=== PATIENT | female | born 1950 | race Caucasian/White ===

== ENCOUNTER → 2016-11-09 | Outpatient (CLI) | payer MEDICARE, BC ==
[2016-11-09 08:39] LABS: Blood Urea Nitrogen 19 mg/dL (7-17); Non-African American GFR(MDRD) 57 (>60 ml/min/1.73 sqM)
--- NOTE | 2016-11-09 11:17 | CT ---
EXAMINATION TYPE: CT chest w con DATE OF EXAM: 11/09/2016 9:07 AM COMPARISON: Chest CT 19 November 2015 HISTORY: Follow up to prior abn CT CT DLP: 571 mGycm Automated exposure control for dose reduction was used. CONTRAST: CT scan of the chest is performed with IV Contrast, patient injected with 80 ml mL of Visipaque 320. FINDINGS: LUNGS: Calcified nodule in the right lower lobe at the level of diaphragm again noted, an additional nodule seen on axial image 47 at the level of the right hemidiaphragm also subcentimeter in size. Sub pleural nodularity also present right lower lobe medially. Subcentimeter nodule axial image 40 in the left lower lobe is noncalcified. MEDIASTINUM: There are no greater than 1 cm hilar or mediastinal lymph nodes. No pericardial effusi on is seen. AORTA: Stable OTHER: Punctate calcification seen within a low dense focus towards the dome of the liver on the rig ht lower is subcentimeter in size. Possible gallstones. Postop change noted at the gastroesophageal j unction. IMPRESSION: Old granulomatous disease is favored. Essentially stable exam.
== END | disposition home or self-care (01) ==
LOC: RADCTMAIN 08:09
PROVIDERS: ATTEND Internal Medicine Critical Care Medicine
DX: R91.8 Other nonspecific abnormal finding of lung field (principal)
CPT/HCPCS: 82565; 84520; 71260; 36415; Q9967

== ENCOUNTER 2017-05-15 00:45 | Inpatient (IN) | payer MEDICARE, BC ==
--- NOTE | 2017-05-15 01:22 | ED ---
General Adult HPI - General Chief complaint: Psychiatric Symptoms Stated complaint: Mental Health Time Seen by Provider: 05/15/17 00:55 Source: patient, EMS, RN notes reviewed Mode of arrival: EMS Limitations: no limitations - History of Present Illness Initial comments: 66-year-old female presents emergency Department chief complaint of manic episode. history of bipolar. Patient is talking very manic in the room unable to get a history from the patient. She denies any pain at this time. - Related Data Home Medications Medication Instructions Recorded Confirmed Ascorbic Acid [Vitamin C] 500 mg PO DAILY 12/06/15 01/28/16 Calcium Carbonate/Vitamin D3 325 mg PO DAILY 12/06/15 01/28/16 [Calcium 600-Vit D3 400 Tablet] Ferrous Sulfate, Dried [Iron] 65 mg PO DAILY 12/06/15 01/28/16 Niacinamide [Niacin] 500 mg PO DAILY 12/06/15 01/28/16 Cholecalciferol [Vitamin D3] 1,000 unit PO BID 12/07/15 01/28/16 Kelp 150 mcg PO DAILY 12/07/15 01/28/16 L.acidoph,Paracasei, B.lactis 1 cap PO DAILY PRN 12/07/15 01/28/16 [Probiotic] Magnesium Oxide [Mag-Ox] 500 mg PO Q48H 12/07/15 01/28/16 Ubidecarenone [Co Q-10] 10 mg PO DAILY 12/07/15 01/28/16 Vitamin E 400 unit PO DAILY 12/07/15 01/28/16 Previous Rx's Medication Instructions Recorded Levothyroxine Sodium [Synthroid] 88 mcg PO DAILY #14 tablet 01/01/16 Multivitamins, Thera [Multivitamin 1 tab PO DAILY #30 tab 01/01/16 (formulary)] OLANZapine [ZyPREXA] 20 mg PO HS #14 tablet 01/01/16 lamoTRIgine [LaMICtal] 100 mg PO TID #21 tab 01/01/16 Allergies Allergy/AdvReac Type Severity Reaction Status Date / Time alendronate sodium Allergy Rash/Hives Verified 01/28/16 23:23 [From Fosamax] amoxicillin Allergy Rash/Hives Verified 01/28/16 23:23 guaifenesin [From Robitussin] Allergy Rash/Hives Verified 01/28/16 23:23 ibandronate sodium Allergy Rash/Hives Verified 01/28/16 23:23 [From Boniva] Review of Systems ROS Statement: Those systems with pertinent positive or pertinent negative responses have been documented in the HPI. ROS Other: All systems not noted in ROS Statement are negative. Past Medical History Past Medical History: Asthma, Thyroid Disorder, Vascular Disorder Additional Past Medical History / Comment(s): Other HX: R lung nodules-pt states noncancerous , slight kidney problems-lab tests alittle abnormal pt states due to previously having been on lithium, stable descending aortic aneurysm, cholelithiasis, hypothyroidism, varicosities R leg, constipation. BOWEL OBSTUCTION History of Any Multi-Drug Resistant Organisms: None Reported Past Surgical History: Adenoidectomy, Appendectomy, Bariatric Surgery, Ear Surgery, Tonsillectomy Additional Past Surgical History / Comment(s): 10-04-15 ADMITTED WITH CLINICAL IMPRESSION OF LT UPPER QUAD PAIN, INFECTION D/T GASTRIC BAND PROCEDURE. Lap band 2003 with a port replacement later, L ear cyst removal, colonoscopy-normal ,EXP LAP REDUCTION OF VENTRAL HERNIA,DECOMPRESSION OF BOWEL,DIVISION OF GASTRIC BAND CATHETER FREEING AREAD OF BOWEL THAT WAS STRANGULATED. Past Anesthesia/Blood Transfusion Reactions: No Reported Reaction Additional Past Anesthesia/Blood Transfusion Reaction / Comment(s): Pt has never recieved blood. Past Psychological History: Bipolar Smoking Status: Never smoker Past Alcohol Use History: Occasional Past Drug Use History: None Reported - Past Family History Father Additional Family Medical History / Comment(s): Father of ruptured aortic aneurysm at age 76yrs. Mother Additional Family Medical History / Comment(s): Mother had an abdominal aneurysm. She in her sleep at age 78yrs. General Exam Limitations: no limitations General appearance: alert Eye exam: Present: normal appearance, PERRL, EOMI. Absent: scleral icterus, conjunctival injection, periorbital swelling ENT exam: Present: normal exam, mucous membranes moist Neck exam: Present: normal inspection. Absent: tenderness, meningismus, lymphadenopathy Respiratory exam: Present: normal lung sounds bilaterally. Absent: respiratory distress, wheezes, rales, rhonchi, stridor Cardiovascular Exam: Present: regular rate, normal rhythm, normal heart sounds. Absent: systolic murmur, diastolic murmur, rubs, gallop, clicks Psychiatric exam: Present: manic Skin exam: Present: warm, dry, intact Course Vital Signs 05/15/17 00:49 Temperature 97.2 F L Pulse Rate 84 Respiratory 16 Rate Blood Pressure 152/84 O2 Sat by Pulse 99 Oximetry Medical Decision Making - Medical Decision Making 66-year-old female presents emergency Department what appears to be in a manic state. She does have history of bipolar disorder. This time it does not appear to be any acute medical emergencies. This time the patient is cleared to be evaluated by psychiatry. At this time patient was evaluated patient will be admitted for psychiatric care. - Lab Data Result diagrams: 05/15/17 01:51 05/15/17 01:51 Lab Results 05/15/17 05/15/17 05/15/17 Range/Units 01:51 01:51 02:30 WBC 7.6 (3.8-10.6) k/uL RBC 4.46 (3.80-5.40) m/uL Hgb 12.8 (11.4-16.0) gm/dL Hct 39.3 (34.0-46.0) % MCV 88.0 (80.0-100.0) fL MCH 28.7 (25.0-35.0) pg MCHC 32.6 (31.0-37.0) g/dL RDW 13.5 (11.5-15.5) % Plt Count 279 (150-450) k/uL Neutrophils % 58 % Lymphocytes % 27 % Monocytes % 8 % Eosinophils % 3 % Basophils % 1 % Neutrophils # 4.4 (1.3-7.7) k/uL Lymphocytes # 2.1 (1.0-4.8) k/uL Monocytes # 0.6 (0-1.0) k/uL Eosinophils # 0.2 (0-0.7) k/uL Basophils # 0.1 (0-0.2) k/uL Sodium 139 (137-145) mmol/L Potassium 4.0 (3.5-5.1) mmol/L Chloride 104 (98-107) mmol/L Carbon Dioxide 22 (22-30) mmol/L Anion Gap 13 mmol/L BUN 29 H (7-17) mg/dL Creatinine 1.00 (0.52-1.04) mg/dL Est GFR (MDRD) Af Amer >60 (>60 ml/min/1.73 sqM) Est GFR (MDRD) Non-Af 55 (>60 ml/min/1.73 sqM) Glucose 102 H (74-99) mg/dL Calcium 10.0 (8.4-10.2) mg/dL Total Bilirubin 0.7 (0.2-1.3) mg/dL AST 31 (14-36) U/L ALT 36 (9-52) U/L Alkaline Phosphatase 83 (38-126) U/L Total Protein 7.1 (6.3-8.2) g/dL Albumin 4.5 (3.5-5.0) g/dL Urine Color Colorless Urine Appearance Clear (Clear) Urine pH 5.0 (5.0-8.0) Ur Specific Roll 1.002 (1.001-1.035) Urine Protein Negative (Negative) Urine Glucose (UA) Negative (Negative) Urine Ketones Negative (Negative) Urine Blood Negative (Negative) Urine Nitrite Negative (Negative) Urine Bilirubin Negative (Negative) Urine Urobilinogen <2.0 (<2.0) mg/dL Ur Leukocyte Esterase Negative (Negative) Serum Alcohol <10 mg/dL Disposition Clinical Impression: Asmita (monopolar) single episode or unspecified Disposition: TRANSFER TO PSYCH HOSP/UNIT Condition: Stable Referrals: Genie Mccann, BEN [REFERRING] - 1-2 days Time of Disposition: 03:08
[2017-05-15 02:03] LABS: Basophils # (A) 0.1 k/uL (0-0.2); Basophils % (A) 1 %; CH 29.2; CHCM 33.3; Eosinophils # (A) 0.2 k/uL (0-0.7); Eosinophils % (A) 3 %; HCT 39.3 % (34.0-46.0); HDW 2.35; HGB 12.8 gm/dL (11.4-16.0); Luc # (Auto) 0.23; Luc % (Auto) 3; Lymphocytes # (A) 2.1 k/uL (1.0-4.8); Lymphocytes % (A) 27 %; MCH 28.7 pg (25.0-35.0); MCHC 32.6 g/dL (31.0-37.0); Mean Platelet Volume 6.6; Monocytes # (A) 0.6 k/uL (0-1.0); Monocytes % (A) 8 %; Neutrophils # (A) 4.4 k/uL (1.3-7.7); Neutrophils % (A) 58 %; RBC 4.46 m/uL (3.80-5.40); RDW 13.5 % (11.5-15.5); WBC 7.6 k/uL (3.8-10.6); WBC (Perox) 7.66
[2017-05-15 02:11] LABS: ALT 36 U/L (9-52); AST 31 U/L (14-36); Alcohol <10 mg/dL; Alkaline Phosphatase 83 U/L (38-126); Anion Gap 13 mmol/L; Blood Urea Nitrogen 29 mg/dL (7-17); Carbon Dioxide 22 mmol/L (22-30); Chloride 104 mmol/L (98-107); Glucose 102 mg/dL (74-99); Non-African American GFR(MDRD) 55 (>60 ml/min/1.73 sqM); Sodium 139 mmol/L (137-145); Total Bilirubin 0.7 mg/dL (0.2-1.3); Total Protein 7.1 g/dL (6.3-8.2)
[2017-05-15 02:47] LABS: Appearance,Urine Clear (Clear); Bilirubin,Urine Negative (Negative); Glucose,Urine (UA) Negative (Negative); Ketones,Urine Negative (Negative); Leukocyte Esterase,Urine Negative (Negative); Nitrite,Urine Negative (Negative); Protein,Urine Negative (Negative); Specific Gravity,Urine 1.002 (1.001-1.035); UA Billing (MACRO vs. MICRO) CHEM; Urobilinogen,Urine <2.0 mg/dL (<2.0)
[2017-05-15] MEDS ORDERED: LORazepam 1 MG TAB PO STA (03:34)
[2017-05-15] MEDS ORDERED: MAG HYDROX/AL HYDROX/SIMETH 30 ML CUP PO PRN (04:47)
[2017-05-15] MEDS ORDERED: ACETAMINOPHEN TAB 325 MG TAB PO PRN (04:47)
[2017-05-15] MEDS ORDERED: MAGNESIUM HYDROXIDE 2,400 MG/10 ML CUP PO PRN (04:47)
[2017-05-15] MEDS: lamoTRIgine 100 MG TAB PO SCH ×3 (09:28→21:07)
[2017-05-15] MEDS: LEVOTHYROXINE 88 MCG TAB PO SCH (09:28)
--- NOTE | 2017-05-15 17:44 | P.CONS ---
History of Present Illness - Reason for Consult Consult date: 05/15/17 Medical history and physical in a patient admitted to the psych floor. - History of Present Illness This is a 66-year-old female appears to have some degree of underlying dementia comes in to the hospital with an acute manic episode. Patient was brought into the hospital by her family members Most of the history is obtained from chart review patient was mostly concerned about correcting her recent painting. However denied having any headaches change in vision chest pain difficulty breathing constipation or diarrhea urinary urgency or frequency or lower extremity edema. Patient is able to ambulate without any difficulty No other issues were reported by the patient patient denies having any suicidal or homicidal thoughts at this time. Review of Systems All systems: negative (HPI) Past Medical History Past Medical History: Asthma, Thyroid Disorder, Vascular Disorder Additional Past Medical History / Comment(s): Other HX: R lung nodules-pt states noncancerous , slight kidney problems-lab tests alittle abnormal pt states due to previously having been on lithium, stable descending aortic aneurysm, cholelithiasis, hypothyroidism, varicosities R leg, constipation. BOWEL OBSTUCTION History of Any Multi-Drug Resistant Organisms: None Reported Past Surgical History: Adenoidectomy, Appendectomy, Bariatric Surgery, Ear Surgery, Tonsillectomy Additional Past Surgical History / Comment(s): 10-04-15 ADMITTED WITH CLINICAL IMPRESSION OF LT UPPER QUAD PAIN, INFECTION D/T GASTRIC BAND PROCEDURE. Lap band 2003 with a port replacement later, L ear cyst removal, colonoscopy-normal ,EXP LAP REDUCTION OF VENTRAL HERNIA,DECOMPRESSION OF BOWEL,DIVISION OF GASTRIC BAND CATHETER FREEING AREAD OF BOWEL THAT WAS STRANGULATED. Past Anesthesia/Blood Transfusion Reactions: No Reported Reaction Additional Past Anesthesia/Blood Transfusion Reaction / Comm: Pt has never recieved blood. Past Psychological History: Bipolar Smoking Status: Never smoker Past Alcohol Use History: Occasional Past Drug Use History: None Reported - Past Family History Father Additional Family Medical History / Comment(s): Father of ruptured aortic aneurysm at age 76yrs. Mother Additional Family Medical History / Comment(s): Mother had an abdominal aneurysm. She in her sleep at age 78yrs. Medications and Allergies Home Medications Medication Instructions Recorded Confirmed Type Ascorbic Acid [Vitamin C] 500 mg PO DAILY 12/06/15 05/15/17 History Calcium Carbonate/Vitamin D3 325 mg PO DAILY 12/06/15 05/15/17 History [Calcium 600-Vit D3 400 Tablet] Ferrous Sulfate, Dried [Iron] 65 mg PO DAILY 12/06/15 05/15/17 History Niacinamide [Niacin] 500 mg PO DAILY 12/06/15 05/15/17 History Cholecalciferol [Vitamin D3] 1,000 unit PO BID 12/07/15 05/15/17 History Kelp 150 mcg PO DAILY 12/07/15 05/15/17 History L.acidoph,Paracasei, B.lactis 1 cap PO DAILY PRN 12/07/15 05/15/17 History [Probiotic] Magnesium Oxide [Mag-Ox] 500 mg PO Q48H 12/07/15 05/15/17 History Ubidecarenone [Co Q-10] 10 mg PO DAILY 12/07/15 05/15/17 History Vitamin E 400 unit PO DAILY 12/07/15 05/15/17 History OLANZapine [ZyPREXA] 5 mg PO BID 05/15/17 05/15/17 History Allergies Allergy/AdvReac Type Severity Reaction Status Date / Time alendronate sodium Allergy Rash/Hives Verified 05/15/17 11:32 [From Fosamax] amoxicillin Allergy Rash/Hives Verified 05/15/17 11:32 guaifenesin [From Robitussin] Allergy Rash/Hives Verified 05/15/17 11:32 ibandronate sodium Allergy Rash/Hives Verified 05/15/17 11:32 [From Boniva] Physical Exam Vitals: Vital Signs Temp Pulse Pulse Resp BP BP Pulse Ox 05/15/17 07:51 97.8 F 76 16 129/92 05/15/17 04:18 97.9 F 88 18 131/67 05/15/17 04:05 97.7 F 83 18 152/75 100 05/15/17 00:49 97.2 F L 84 16 152/84 99 Intake and Output 05/15/17 05/15/17 05/15/17 06:59 14:59 22:59 Other: Weight 74.843 kg Physical exam Gen. appearance oriented 3 in no distress Neck is supple no JVD Lungs good air entry clear to auscultation no rhonchi or wheezing Heart S1-S2 heard regular rate and rhythm no murmurs appreciated Abdomen is soft nontender no organomegaly bowel sounds are intact Neurologically cranial nerves II-12 grossly intact no focal motor or sensory deficits unable to assess higher mental function. Patient appears to be more distracted tangential thought. Skin no abnormalities appreciated Results CBC & Chem 7: 05/15/17 01:51 05/15/17 01:51 Labs: Abnormal Lab Results - Last 24 Hours (Table) 05/15/17 Range/Units 01:51 BUN 29 H (7-17) mg/dL Glucose 102 H (74-99) mg/dL Assessment and Plan Plan: #1Manic episode in a pt bipolar disorder #2 hypothyroidism #3 history of IBS? Plan Continue ongoing care medical physical exam appears to be within normal limits no further recommendations management per you Drug screen and labs were reviewed. Please call us with any questions or concerns.
--- NOTE | 2017-05-15 19:22 | HP ---
DATE OF ADMISSION 05/15/17 IDENTIFYING DATA: This is a 66-year-old female patient. HISTORY OF PRESENT ILLNESS: Ms. Ceja was admitted to the inpatient psychiatry unit at [facility] on a voluntary basis with recent concerns of manic and psychosis symptoms. The patient states that she was very confused. She states that when she gets angry at people it seems to get worse and it seems to be the ones that she loves the most that she gets angry at. She states that over the past week she has been noticing that she has been getting more angry. Her mood has been very up and down recently. She says it was really more up. She makes reference to also that she found an tammie in here. It is not clear if she is talking about during this recent admission or in the past. PSYCHIATRIC HISTORY: She says she sees Dr. Gorman and most recent psychotropic medications were Zyprexa 5 mg b.i.d. which was just increased to 20 mg at bedtime on Wednesday and Lamictal 100 mg t.i.d.. She has had inpatient psychiatric treatment in the past. She says she cannot remember how many times per chart history, she was here July 2015 and then November 2015. She seems to relay that she saw Dr. Iqbal and Dr. Self in the past. She says she thought she was consistent with her medications. PSYCHIATRIC FAMILY HISTORY: She denies. PAST MEDICAL HISTORY: Per chart is asthma, thyroid disorder, vacular disorder, right lung nodule, kidney problems, aortic aneurysm, Cholelithiasis, venous varicosities, bowel obstruction, history of lap band. Current medications: 1. Tylenol prn. 2. Maalox prn. 3. Lamictal. 4. Synthroid. 5. Milk of Magnesia prn. 6. Zyprexa. DRUG AND ALCOHOL HISTORY: The patient states she does not use alcohol any more. She used to drink but not a lot. She denied any history of cocaine or heroin use. She did smoke cigarettes on and off. SOCIAL HISTORY: She lives with her of 30 years. She had one child from a different relationship it sounds. It is not totally clear now many children she has. She talks about having had two miscarriages and then having another daughter. Then regarding living with her she states I thought we did for a while. She grew up in [place]. 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 It sounds like she did not finish either. Regarding work, she says she was trying to find more and more work. MENTAL STATUS EXAM: She is alert, overall cooperative. She does not show any agitation. Her speech is rapid, pressured at times. It is fluent. Thought processes are disorganized. Circumstantiality and showing some tangentially at times with some flight of ideas. When asked regarding her mood, starts out saying pretty but then is not sure how to describe it. She denies any auditory hallucinations or visual hallucinations. There is history on the chart commenting on auditory hallucinations. She denies any thoughts of harm to other people. Regarding thoughts of harm to herself, she says she was really tempted earlier but now denies any thoughts of harm to herself. She is oriented to where we are. I do not appreciate any significant memory disturbances. Her insight has some limitations. Her judgement is impaired. IMPRESSION: Bipolar disorder,manic with psychosis. PLAN/RECOMMENDATIONS: The patient will be admitted to the inpatient psychiatric unit at [facility] on a voluntary basis. She will be placed on SP 15 minute precautions. She will participate in group and activity therapy. Baseline laboratory workup will be done on the patient and medical consultation will be ordered. I agree with titration of Zyprexa. She is currently on 20 mg at bedtime which was only started on Wednesday. We will maintain for mood stabilization and psychosis symptoms and also maintain current dose of Lamictal for mood stabilization. We will monitor response and monitor for any medication side effects. We will continue to cover this patient for Dr. Cuello through the weekend. We will be look into family support. Estimated length of stay is five to seven days. Prognosis guarded. MTDD
[2017-05-15] MEDS: OLANZapine 10 MG TAB PO SCH (21:07)
[2017-05-16] MEDS: LEVOTHYROXINE 88 MCG TAB PO SCH (09:54)
[2017-05-16] MEDS: lamoTRIgine 100 MG TAB PO SCH ×3 (09:54→20:52)
--- NOTE | 2017-05-16 16:16 | P.PN ---
Progress Note - Text Interval history: She is seen in cross coverage today for Dr. Pascal. She did take her Zyprexa last night. Per staff she has been laying in bed more today, exhibiting some paranoid type thinking. Patient states she didn't go to lunch because she was concerned about the way she looked. She made reference to some confusion. Mental status exam: She is alert and cooperative with the interview. Her speech is much less rapid and pressured today. She does have significant disorganization of thought. She denies any thoughts of harm to self or others. She feels like she has hurt other people emotionally. She does not verbalize any hallucinations. She does not show any significant agitation. She is oriented to place. Plan: We'll maintain current psychotropic medication regimen. We'll continue to monitor for any medication side effects and her ongoing response. Dr. Pascal will initiate/resume care this patient starting tomorrow.
[2017-05-16] MEDS: OLANZapine 10 MG TAB PO SCH (20:52)
[2017-05-17] MEDS: lamoTRIgine 100 MG TAB PO SCH ×3 (10:14→21:18)
[2017-05-17] MEDS: LEVOTHYROXINE 88 MCG TAB PO SCH (10:14)
--- NOTE | 2017-05-17 12:37 | P.PN ---
Progress Note - Text Interval History: Patient is a 66-year-old female who was admitted with manic symptoms and has a diagnosis of bipolar disorder. She was seen this morning and she reported that she was having trouble figuring out what groups to attend , where the schedule was. Patient states that she was not doing well and got angry at her and saw her psychiatrist and her Zyprexa dose was increased to 20 mg. Patient is not able to elaborate on how she was taking her medications at home. Patient appears slightly slowed today and had great difficulty with her recent memory. Patient states that she slept last evening and is eating well but was unable to elaborate any further. Mental Status: Appearance/Attitude: Patient is neatly and appropriately dressed , she makes good eye contact and was cooperative. Behavior: Patient does not exhibit any psychomotor agitation but there is evidence of psychomotor slowing. Speech/Language: Patient's speech is spontaneous and of normal volume and rhythm and she is coherent. Thought Process: Patient is goal-directed but is slow to respond and has difficulty organizing her thoughts, no evidence of circumstantial or tangential thought or flight of ideas or loose associations. Patient denies that her thoughts are racing. Thought Content: Patient denies any auditory or visual hallucinations and no paranoid or delusional ideation was elicited. Patient reports that she is having trouble with her memory as well as with her thinking feeling slowed down. Patient is sleeping well and eating well. Suicidal/Homicidal Ideation: Patient denies any current suicidal or homicidal ideation. Sensorium/Cognition: Patient is alert and oriented to person, place, time and situation on testing she is unable to recall 5 items in 5 minutes, with clues she is able to recall 2 items with multiple choice one item. Patient complains that she is having memory difficulties. Mood/Affect: Patient's mood was subdued and her affect appears blunted Insight/Judgement: Patient's insight and judgment are impaired. Assessment: Patient was admitted after having increasing anger and what appeared to be manic symptoms on admission. Her Zyprexa was increased to 20 mg and she was continued on her Lamictal and presents today somewhat psychomotor slowed. She is reporting difficulties with her memory but it is difficult to ascertain if this is something new or has been going on for some time. Patient is confused on the unit not being able to figure out what activities there are, or where they are. It is difficult to determine if the patient was correctly taking her medications at home or not. Plan: Patient has been continued on Lamictal 100 mg 3 times a day to stabilize her mood and her Zyprexa was increased on admission to 20 mg at bedtime to target her mood. Patient appears today slightly slowed and she is reporting memory problems which were evident on testing. We'll continue her current medications and evaluate whether her thinking improves or not, patient was not appearing sedated this morning. Patient continues to require hospitalization to stabilize her mood.
[2017-05-17] MEDS: OLANZapine 10 MG TAB PO SCH (21:18)
[2017-05-18] MEDS: LEVOTHYROXINE 88 MCG TAB PO SCH (09:10)
[2017-05-18] MEDS: lamoTRIgine 100 MG TAB PO SCH ×3 (09:10→21:00)
[2017-05-18] MEDS: MULTIVITAMINS, THERA 1 EACH TAB PO SCH (10:48)
--- NOTE | 2017-05-18 13:20 | P.PN ---
Progress Note - Text Interval History: Patient is a 66-year-old female who was seen today and reports that her thoughts are still a little jumbled. Patient reports that she slept well last night, and discussed with me difficulties at home due to the changing work schedule that her has. 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 Patient denied any suicidal thoughts, she reported no complaints of side effects from the medication. Mental Status: Appearance/Attitude: Patient is neatly and appropriately dressed , makes good eye contact and is cooperative. Behavior: Patient does not display any psychomotor agitation or retardation. Speech/Language: Patient is spontaneous, at times she has slightly pressured speech, speaks in a normal volume and rhythm and is coherent. Thought Process: Patient is tangential and at times has some flight of ideas, no loose associations were elicited. Thought Content: Patient denies any auditory or visual hallucinations and no delusions or paranoid ideation were elicited. Patient at times had evidence of flight of ideas, discussing her nutritional supplements at home, and is tangential discussing her situation at home with her . Patient continues to report that her thoughts are still somewhat jumbled, and she has difficulty responding to questions directly. Patient reports that she is sleeping and eating well. Patient states that her thoughts are less disorganized than when on admission, she states that she was having manic symptoms at that time. Suicidal/Homicidal Ideation: Patient denies any current suicidal or homicidal ideation. Sensorium/Cognition: Patient is alert and oriented to person, place, and time and her memory is grossly intact. Patient and I discussed redoing her testing when her thoughts are less jumbled Mood/Affect: Patient's mood is euthymic, patient does not report feeling depressed and her affect is slightly blunted. Insight/Judgement: Patient's insight and judgment are fair. Assessment: Patient is not exhibiting a labile mood, but at times she is tangential and slightly pressured in her speech. Patient continues to report that her thoughts are not well organized and she does have trouble responding to questions in a direct fashion. Patient discussed difficulties at home with her 's changing schedule and disrupting the schedule that she had been keeping for herself. Patient reports that her thoughts are slightly less jumbled today than they were on admission. Patient is not reporting feeling manic or depressed at this time. Patient and I discussed changing her medication to Latuda from Zyprexa due to her complaints of weight gain but the patient was not interested in changing her medication. She reports that she was eager to have her Zyprexa reduced in dose due to her weight gain. Plan: Patient will continue on Lamictal 100 mg 3 times a day to stabilize her mood and Zyprexa 20 mg at bedtime to target her mood. Patient was encouraged to continue attending groups and activities. Patient continues to require hospitalization to stabilize her mood.
[2017-05-18] MEDS: OLANZapine 10 MG TAB PO SCH (21:00)
[2017-05-19] MEDS: lamoTRIgine 100 MG TAB PO SCH ×3 (08:51→20:44)
[2017-05-19] MEDS: LEVOTHYROXINE 88 MCG TAB PO SCH (08:51)
[2017-05-19] MEDS: MULTIVITAMINS, THERA 1 EACH TAB PO SCH (12:29)
--- NOTE | 2017-05-19 14:57 | P.PN ---
Progress Note - Text Interval History: Patient is a 66-year-old female who is seen today, she continues to approach me to question what time she is taking her medications and if her correct medications are being prescribed for her. Patient states that she slept well last night and is eating well and is anxious about returning home to pay her bills. Patient states that she is slightly confused here due to not being on a strict schedule she maintains for herself at home. Patient denies any racing thoughts and states that she is feeling calmer than on admission. Patient did not report any suicidal ideation, no reports of feeling depressed. Mental Status: Appearance/Attitude: Patient was neatly and appropriately dressed , made good eye contact and was cooperative. Behavior: Patient displayed no psychomotor agitation or retardation. Speech/Language: Patient's speech was spontaneous, not pressured of normal volume and rhythm and she was coherent. Thought Process: Patient was goal-directed, no evidence of circumstantial or tangential thought and no flight of ideas or racing thoughts. Thought Content: Patient denied any auditory or visual hallucinations no paranoid or delusional ideation was elicited. Patient reports she is sleeping and eating well and states that she is no longer feeling agitated, she is not feeling depressed. Patient states she is anxious about returning home to pay the bills. Suicidal/Homicidal Ideation: Patient denies any suicidal or homicidal ideation currently. Sensorium/Cognition: Patient is alert and oriented to person, place, and time and the patient continues to ask me if her medications are being prescribed correctly, if she is getting her correct medications Mood/Affect: Patient's mood is euthymic and her affect is appropriate. Insight/Judgement: Patient's insight and judgment are fair. Assessment: Patient is a longer having any evidence of increased energy, pressured speech and denies any racing thoughts. Patient reports that she is sleeping well and feeling rested and is anxious to return home to take care of the bills. Patient does continue to ask me frequently about her medications, whether they're being prescribed correctly and whether she is getting the medications that she was on when she was at home. Patient states that she is confused here because she is not on her routine schedule at home. Plan: Patient will continue on her current medications of Zyprexa 20 mg at bedtime and Lamictal 100 mg 3 times a day to target and stabilize her mood. Patient and I discussed her discharge tomorrow and she will return to follow-up with her private psychiatrist. Patient was encouraged to attend and participate in groups and activities.
[2017-05-19] MEDS: OLANZapine 10 MG TAB PO SCH (20:44)
[2017-05-20 06:35] VITALS: BP 123/79; PULSE 72; RESP 18; TEMP 97.7
[2017-05-20] MEDS: lamoTRIgine 100 MG TAB PO SCH (08:40)
[2017-05-20] MEDS: LEVOTHYROXINE 88 MCG TAB PO SCH (08:40)
--- NOTE | 2017-05-20 09:29 | P.DS ---
Providers Date of admission: 05/15/17 03:54 Expected date of discharge: 05/20/17 Attending physician: Julissa Pascal MD Consults: 05/15/17 04:47 Consult Physician Routine Consulting Provider: Addie Miguel Consult Reason/Comments: medical management Do you want consulting provider notified?: Yes, Notify in am Primary care physician: Physician Nonstaff Hospital Course: Discharge Diagnoses: Bipolar 1 disorder, manic with psychotic features Reason for Admission: Patient is a 66-year-old female who is brought to the hospital due to recent symptoms of garrett and psychosis. Patient was reporting feeling very confused and getting very angry at people. Over the past week the patient had been, becoming more irritable and her mood was more labile. Patient had just seen her psychiatrist on the Wednesday prior to admission when her Zyprexa had been increased to 20 mg at bedtime. Patient continued to not do well and so was brought to the hospital for admission to stabilize her mood. Patient has been admitted in the past and her last admission was in November 2015. Patient reports that she thought she was taking her medications as directed. Hospital Course: Patient was admitted on a voluntary basis, routine laboratory studies were performed and a medical consultation was obtained. Patient was placed on routine precautions and was ordered group and activity therapy. Patient was continued on her Lamictal 100 mg 3 times a day and on the increased dose of Zyprexa 20 mg at bedtime. Patient was also continued on her Synthroid and her other nutritional supplements were not continued in the hospital. Patient appeared confused during the first several days of admission and this gradually improved. Patient was no longer reporting racing thoughts, she was much less irritable and stated that she was sleeping much better. Patient was not reporting any auditory hallucinations and no delusions were elicited. Patient was circumstantial at times and had difficulty with her recent memory. Patient did attend group and activity therapies and did participate. Patient was given a MOCA which revealed difficulty copying a rectangle and with delayed recall. Her total score was a 25 out of 30 and she had no difficulty on any of the other aspects of this test. Patient reported to me that she uses a very strict schedule and uses a calendar to keep herself on task. Patient's speech was no longer pressured, she was no longer reporting racing thoughts no delusions were elicited and the patient was sleeping well. Her mood had stabilized and was no longer labile or irritable. Patient reported no difficulty tolerating the increased dose of Zyprexa and was ready for discharge. Discharge Mental Status:Appearance/Attitude: Patient was neatly and appropriately dressed and made good eye contact and was cooperative. Behavior: Patient's behavior displayed no psychomotor agitation or retardation. Speech/Language: Patient's speech was spontaneous, of normal volume and rhythm and she was coherent. Thought Process: Patient was goal-directed and there was no evidence of circumstantial or tangential thought, and no flight of ideas or use associations were elicited. Thought Content: Patient denied any auditory or visual hallucinations and no delusions or paranoid ideation were elicited. Patient reported that her thoughts were no longer racing and she was not as confused. Patient states her thinking was much clearer she was no longer feeling irritable or angry. Patient reports that she was sleeping and eating well and feeling rested in the morning. Suicidal/Homicidal Ideation: Patient denied any current suicidal or homicidal ideation. Sensorium/Cognition: Patient was alert and oriented to person, place, and time and the patient had difficulty with delayed recall as stated above. Mood/Affect: Patient's mood was euthymic and her affect was appropriate. Insight/Judgement: Patient's insight and judgment are fair. Laboratory Last Values WBC 7.6 k/uL (3.8-10.6) 05/15/17 01:51 RBC 4.46 m/uL (3.80-5.40) 05/15/17 01:51 Hgb 12.8 gm/dL (11.4-16.0) 05/15/17 01:51 Hct 39.3 % (34.0-46.0) 05/15/17 01:51 MCV 88.0 fL (80.0-100.0) 05/15/17 01:51 MCH 28.7 pg (25.0-35.0) 05/15/17 01:51 MCHC 32.6 g/dL (31.0-37.0) 05/15/17 01:51 RDW 13.5 % (11.5-15.5) 05/15/17 01:51 Plt Count 279 k/uL (150-450) 05/15/17 01:51 Neutrophils % 58 % 05/15/17 01:51 Lymphocytes % 27 % 05/15/17 01:51 Monocytes % 8 % 05/15/17 01:51 Eosinophils % 3 % 05/15/17 01:51 Basophils % 1 % 05/15/17 01:51 Neutrophils # 4.4 k/uL (1.3-7.7) 05/15/17 01:51 Lymphocytes # 2.1 k/uL (1.0-4.8) 05/15/17 01:51 Monocytes # 0.6 k/uL (0-1.0) 05/15/17 01:51 Eosinophils # 0.2 k/uL (0-0.7) 05/15/17 01:51 Basophils # 0.1 k/uL (0-0.2) 05/15/17 01:51 Sodium 139 mmol/L (137-145) 05/15/17 01:51 Potassium 4.0 mmol/L (3.5-5.1) 05/15/17 01:51 Chloride 104 mmol/L (98-107) 05/15/17 01:51 Carbon Dioxide 22 mmol/L (22-30) 05/15/17 01:51 Anion Gap 13 mmol/L 05/15/17 01:51 BUN 29 mg/dL (7-17) H 05/15/17 01:51 Creatinine 1.00 mg/dL (0.52-1.04) 05/15/17 01:51 Est GFR (MDRD) Af Amer >60 (>60 ml/min/1.73 sqM) 05/15/17 01:51 Est GFR (MDRD) Non-Af 55 (>60 ml/min/1.73 sqM) 05/15/17 01:51 Glucose 102 mg/dL (74-99) H 05/15/17 01:51 Calcium 10.0 mg/dL (8.4-10.2) 05/15/17 01:51 Total Bilirubin 0.7 mg/dL (0.2-1.3) 05/15/17 01:51 AST 31 U/L (14-36) 05/15/17 01:51 ALT 36 U/L (9-52) 05/15/17 01:51 Alkaline Phosphatase 83 U/L (38-126) 05/15/17 01:51 Total Protein 7.1 g/dL (6.3-8.2) 05/15/17 01:51 Albumin 4.5 g/dL (3.5-5.0) 05/15/17 01:51 TSH 3.180 mIU/L (0.465-4.680) 05/15/17 09:03 Urine Color Colorless 05/15/17 02:30 Urine Appearance Clear (Clear) 05/15/17 02:30 Urine pH 5.0 (5.0-8.0) 05/15/17 02:30 Ur Specific Tolstoy 1.002 (1.001-1.035) 05/15/17 02:30 Urine Protein Negative (Negative) 05/15/17 02:30 Urine Glucose (UA) Negative (Negative) 05/15/17 02:30 Urine Ketones Negative (Negative) 05/15/17 02:30 Urine Blood Negative (Negative) 05/15/17 02:30 Urine Nitrite Negative (Negative) 05/15/17 02:30 Urine Bilirubin Negative (Negative) 05/15/17 02:30 Urine Urobilinogen <2.0 mg/dL (<2.0) 05/15/17 02:30 Ur Leukocyte Esterase Negative (Negative) 05/15/17 02:30 Urine Opiates Screen Not Detected (NotDetected) 05/15/17 02:30 Ur Oxycodone Screen Not Detected (NotDetected) 05/15/17 02:30 Urine Methadone Screen Not Detected (NotDetected) 05/15/17 02:30 Ur Propoxyphene Screen Not Detected (NotDetected) 05/15/17 02:30 Ur Barbiturates Screen Not Detected (NotDetected) 05/15/17 02:30 U Tricyclic Antidepress Not Detected (NotDetected) 05/15/17 02:30 Ur Phencyclidine Scrn Not Detected (NotDetected) 05/15/17 02:30 Ur Amphetamines Screen Not Detected (NotDetected) 05/15/17 02:30 U Methamphetamines Scrn Not Detected (NotDetected) 05/15/17 02:30 U Benzodiazepines Scrn Not Detected (NotDetected) 05/15/17 02:30 Urine Cocaine Screen Not Detected (NotDetected) 05/15/17 02:30 U Marijuana (THC) Screen Not Detected (NotDetected) 05/15/17 02:30 Serum Alcohol <10 mg/dL 05/15/17 01:51 Risk Assessment: Patient's risk for self-harm is low she has no prior suicidal history, has been compliant with treatment Discharge Plan: Patient will return home to live with her and will continue to follow-up with her private psychiatrist. Patient will continue on Zyprexa 20 mg at bedtime and Lamictal 100 mg 3 times a day, patient reports that she has sufficient medication at home and does not need prescriptions. Patient will also continue on her Synthroid and she will restart her prior nutritional supplements. Patient was encouraged to be compliant with her medication. Patient Condition at Discharge: Stable Plan - Discharge Summary New Discharge Prescriptions: New OLANZapine [ZyPREXA] 20 mg PO HS tab Continue Ascorbic Acid [Vitamin C] 500 mg PO DAILY Niacinamide [Niacin] 500 mg PO DAILY Ferrous Sulfate, Dried [Iron] 65 mg PO DAILY Calcium Carbonate/Vitamin D3 [Calcium 600-Vit D3 400 Tablet] 325 mg PO DAILY Cholecalciferol [Vitamin D3] 1,000 unit PO BID Vitamin E 400 unit PO DAILY L.acidoph,Paracasei, B.lactis [Probiotic] 1 cap PO DAILY PRN PRN Reason: Gi Upset Ubidecarenone [Co Q-10] 10 mg PO DAILY Kelp 150 mcg PO DAILY Magnesium Oxide [Mag-Ox] 500 mg PO Q48H lamoTRIgine [LaMICtal] 100 mg PO TID #21 tab Multivitamins, Thera [Multivitamin (formulary)] 1 tab PO DAILY #30 tab Levothyroxine Sodium [Synthroid] 88 mcg PO DAILY #14 tablet Discontinued OLANZapine [ZyPREXA] 5 mg PO BID Discharge Medication List Ascorbic Acid [Vitamin C] 500 mg PO DAILY 12/06/15 [History] Calcium Carbonate/Vitamin D3 [Calcium 600-Vit D3 400 Tablet] 325 mg PO DAILY 08/12 [History] Ferrous Sulfate, Dried [Iron] 65 mg PO DAILY 12/06/15 [History] Niacinamide [Niacin] 500 mg PO DAILY 12/06/15 [History] Cholecalciferol [Vitamin D3] 1,000 unit PO BID 12/07/15 [History] Kelp 150 mcg PO DAILY 12/07/15 [History] L.acidoph,Paracasei, B.lactis [Probiotic] 1 cap PO DAILY PRN 12/07/15 [History] Magnesium Oxide [Mag-Ox] 500 mg PO Q48H 12/07/15 [History] Ubidecarenone [Co Q-10] 10 mg PO DAILY 12/07/15 [History] Vitamin E 400 unit PO DAILY 12/07/15 [History] Levothyroxine Sodium [Synthroid] 88 mcg PO DAILY #14 tablet 01/01/16 [Rx] Multivitamins, Thera [Multivitamin (formulary)] 1 tab PO DAILY #30 tab 01/01/16 [Rx] lamoTRIgine [LaMICtal] 100 mg PO TID #21 tab 01/01/16 [Rx] OLANZapine [ZyPREXA] 20 mg PO HS tab 05/20/17 [Rx] Follow up Appointment(s)/Referral(s): Jazmin Sweeney [Other] - 05/28/17 1:45 pm ( ) Genie Mccann PAC [REFERRING] - 1-2 days Patient Instructions/Handouts: Bipolar Disorder (DC) Activity/Diet/Wound Care/Special Instructions: Activity and diet as tolerated. Avoid the use of street drugs and alcohol. Take all medications as prescribed. When you are in need of refills on your medications contact your medical provider and/or outpatient psychiatrist to have this done. Please go to scheduled outpatient appointment for aftercare treatment. If symptoms return or become worse call the crisis line at [phone] and/or go to the nearest emergency room for an evaluation. Discharge Disposition: HOME SELF-CARE
== END 2017-05-20 12:26 | disposition home or self-care (01) | DRG 885 ==
LOC: EC 00:45 → 3MHU 03:54
PROVIDERS: ADMIT Psychiatry & Neurology Psychiatry; ATTEND Psychiatry & Neurology Psychiatry
DX: F31.2 Bipolar disorder, current episode manic severe with psychotic features (principal); F03.90 Unspecified dementia, unspecified severity, without behavioral disturbance, psychotic disturbance, mood disturbance, and anxiety; F17.210 Nicotine dependence, cigarettes, uncomplicated; I71.9 Aortic aneurysm of unspecified site, without rupture; J45.909 Unspecified asthma, uncomplicated; R91.1 Solitary pulmonary nodule; E03.9 Hypothyroidism, unspecified; K80.20 Calculus of gallbladder without cholecystitis without obstruction; Z79.899 Other long term (current) drug therapy; Z98.84 Bariatric surgery status; Z88.0 Allergy status to penicillin; Z88.8 Allergy status to other drugs, medicaments and biological substances
CPT/HCPCS: 36415; 80053; 80306; 80320; 81003; 84443; 85025; 99285

== ENCOUNTER → 2018-02-07 | Outpatient (CLI) | payer MEDICARE ==
--- NOTE | 2018-02-08 13:03 | ECHOF ---
Referral Reason:I71.2 thoracic aortic aneurysm without rupture MEASUREMENTS -------- HEIGHT: 162.6 cm WEIGHT: 77.1 kg BP: RVIDd: 2.8 cm (< 3.3) IVSd: 1.0 cm (0.6 - 1.1) LVIDd: 4.6 cm (3.9 - 5.3) LVPWd: 1.0 cm (0.6 - 1.1) IVSs: 1.3 cm LVIDs: 3.5 cm LVPWs: 1.5 cm LA Diam: 4.0 cm (2.7 - 3.8) LAESV Index (A-L): 28.06 ml/m Ao Diam: 3.5 cm (2.0 - 3.7) AV Cusp: 2.1 cm (1.5 - 2.6) LA Diam: 4.1 cm (2.7 - 3.8) MV EXCURSION: 20.477 mm (> 18.000) MV EF SLOPE: 66 mm/s (70 - 150) EPSS: 1.4 cm MV E Bobo: 0.41 m/s MV DecT: 268 ms MV A Bobo: 0.74 m/s MV E/A Ratio: 0.56 AR PHT: 489 ms RAP: 5.00 mmHg RVSP: 26.85 mmHg FINDINGS -------- Sinus rhythm. This was a technically good study. LV size, wall thickness and systolic function are normal, with an EF greater than 55%. The left kim tricular size is normal. The right ventricle is normal in size. The left atrial size is normal. Normal LA size by volume 22+/-6 ml/m2. The right atrial size is normal. The aortic valve is trileaflet and appears structurally normal. There is mild aortic regurgitation. The mitral valve is normal. Mild mitral regurgitation is present. Mild tricuspid regurgitation present. There is no evidence of pulmonary hypertension. The right v entricular systolic pressure, as measured by Doppler, is 26.85mmHg. There is no pulmonic regurgitation present. The aortic root size is normal. There is no pericardial effusion. CONCLUSIONS -------- 1. Sinus rhythm. 2. This was a technically good study. 3. LV size, wall thickness and systolic function are normal, with an EF greater than 55%. 4. The left ventricular size is normal. 5. The left atrial size is normal. 6. There is mild aortic regurgitation. 7. The mitral valve is normal. 8. Mild mitral regurgitation is present. 9. Mild tricuspid regurgitation present. 10. There is no evidence of pulmonary hypertension. 11. There is no pulmonic regurgitation present. 12. The aortic root size is normal. 13. There is no pericardial effusion. CONTINUOUS DRIER OPERATOR: Aurelia Narvaez RDCS
== END | disposition home or self-care (01) ==
LOC: RADECHMAIN 15:18
PROVIDERS: ATTEND Family Medicine
DX: I08.3 Combined rheumatic disorders of mitral, aortic and tricuspid valves (principal)
CPT/HCPCS: 93306

== ENCOUNTER 2018-06-14 09:01 | Inpatient (IN) | payer MEDICARE ==
--- NOTE | 2018-06-14 09:24 | ED ---
Psych HPI - General Source: EMS, RN notes reviewed, old records reviewed Mode of arrival: EMS <VicenteSaloni - Last Filed: 06/14/18 11:41> <Breezy Tellez - Last Filed: 06/14/18 11:58> - General Chief Complaint: Psychiatric Symptoms Stated Complaint: MENTAL HEALTH Time Seen by Provider: 06/14/18 09:06 - History of Present Illness Initial Comments: 67-year-old female presents emergency department today with chief complaint of manic episode. She has a history of high blood disorder. She's been out of her medication for 4 days according to EMS. Patient arrives to emergency room with complaint of ideas. Unable to obtain significant history due to N coherent conversation. Patient talks about not use, agreed grass and oranges and peaches and watermelon. Patient denies any physical pain at this time. Patient has been admitted in the past for similar complaints. (Saloni Zhang) - Related Data Home Medications Medication Instructions Recorded Confirmed Ascorbic Acid [Vitamin C] 500 mg PO DAILY 12/06/15 05/15/17 Calcium Carbonate/Vitamin D3 325 mg PO DAILY 12/06/15 05/15/17 [Calcium 600-Vit D3 400 Tablet] Ferrous Sulfate, Dried [Iron] 65 mg PO DAILY 12/06/15 05/15/17 Niacinamide [Niacin] 500 mg PO DAILY 12/06/15 05/15/17 Cholecalciferol [Vitamin D3] 1,000 unit PO BID 12/07/15 05/15/17 Kelp 150 mcg PO DAILY 12/07/15 05/15/17 L.acidoph,Paracasei, B.lactis 1 cap PO DAILY PRN 12/07/15 05/15/17 [Probiotic] Magnesium Oxide [Mag-Ox] 500 mg PO Q48H 12/07/15 05/15/17 Ubidecarenone [Co Q-10] 10 mg PO DAILY 12/07/15 05/15/17 Vitamin E 400 unit PO DAILY 12/07/15 05/15/17 Previous Rx's Medication Instructions Recorded Levothyroxine Sodium [Synthroid] 88 mcg PO DAILY #14 tablet 01/01/16 Multivitamins, Thera [Multivitamin 1 tab PO DAILY #30 tab 01/01/16 (formulary)] lamoTRIgine [LaMICtal] 100 mg PO TID #21 tab 01/01/16 OLANZapine [ZyPREXA] 20 mg PO HS tab 05/20/17 Allergies Allergy/AdvReac Type Severity Reaction Status Date / Time alendronate sodium Allergy Rash/Hives Verified 06/14/18 09:05 [From Fosamax] amoxicillin Allergy Rash/Hives Verified 06/14/18 09:05 guaifenesin [From Robitussin] Allergy Rash/Hives Verified 06/14/18 09:05 ibandronate sodium Allergy Rash/Hives Verified 06/14/18 09:05 [From Boniva] Review of Systems ROS Other: All systems not noted in ROS Statement are negative. <Saloni Zhang - Last Filed: 06/14/18 11:41> ROS Other: All systems not noted in ROS Statement are negative. <Breezy Tellez - Last Filed: 06/14/18 11:58> ROS Statement: Those systems with pertinent positive or pertinent negative responses have been documented in the HPI. Past Medical History Past Medical History: Asthma, Thyroid Disorder, Vascular Disorder Additional Past Medical History / Comment(s): Other HX: R lung nodules-pt states noncancerous , slight kidney problems-lab tests alittle abnormal pt states due to previously having been on lithium, stable descending aortic aneurysm, cholelithiasis, hypothyroidism, varicosities R leg, constipation. BOWEL OBSTUCTION History of Any Multi-Drug Resistant Organisms: None Reported Past Surgical History: Adenoidectomy, Appendectomy, Bariatric Surgery, Ear Surgery, Tonsillectomy Additional Past Surgical History / Comment(s): 10-04-15 ADMITTED WITH CLINICAL IMPRESSION OF LT UPPER QUAD PAIN, INFECTION D/T GASTRIC BAND PROCEDURE. Lap band 2003 with a port replacement later, L ear cyst removal, colonoscopy-normal ,EXP LAP REDUCTION OF VENTRAL HERNIA,DECOMPRESSION OF BOWEL,DIVISION OF GASTRIC BAND CATHETER FREEING AREAD OF BOWEL THAT WAS STRANGULATED. Past Anesthesia/Blood Transfusion Reactions: No Reported Reaction Additional Past Anesthesia/Blood Transfusion Reaction / Comment(s): Pt has never recieved blood. Past Psychological History: Bipolar Smoking Status: Never smoker Past Alcohol Use History: Occasional Past Drug Use History: None Reported - Past Family History Father Additional Family Medical History / Comment(s): Father of ruptured aortic aneurysm at age 76yrs. Mother Additional Family Medical History / Comment(s): Mother had an abdominal aneurysm. She in her sleep at age 78yrs. <Slaoni Zhang - Last Filed: 06/14/18 11:41> General Exam Limitations: altered mental status General appearance: alert, in no apparent distress Head exam: Present: atraumatic, normocephalic, normal inspection Eye exam: Present: normal appearance, PERRL, EOMI. Absent: scleral icterus, conjunctival injection, periorbital swelling ENT exam: Present: normal exam, mucous membranes moist Neck exam: Present: normal inspection. Absent: tenderness, meningismus, lymphadenopathy Respiratory exam: Present: normal lung sounds bilaterally. Absent: respiratory distress, wheezes, rales, rhonchi, stridor Cardiovascular Exam: Present: regular rate, normal rhythm, normal heart sounds. Absent: systolic murmur, diastolic murmur, rubs, gallop, clicks GI/Abdominal exam: Present: soft, other (Vision is significant scar over the mid abdomen. No tenderness noted.) Extremities exam: Present: normal inspection, full ROM, normal capillary refill. Absent: tenderness, pedal edema, joint swelling, calf tenderness Back exam: Present: normal inspection Neurological exam: Present: alert, oriented X3, CN II-XII intact Psychiatric exam: Present: manic (Patient has a significant flight of ideas. Hyperverbal. Pressured speech noted. Patient has no social conversation and talk swell watermelon, peaches and regress. ). Absent: normal affect, normal mood Skin exam: Present: warm, dry, intact, normal color. Absent: rash <Saloni Zhang - Last Filed: 06/14/18 11:41> <Breezy Tellez - Last Filed: 06/14/18 11:58> - General Exam Comments Initial Comments: This is a 67-year-old female. Patient is hyperverbal. She appears in no acute distress. Resting comfortably bed. He continued conversation with herself and flight of ideas. (Saloni Zhang) Course <Saloni Zhang - Last Filed: 06/14/18 11:41> <Breezy Tellez - Last Filed: 06/14/18 11:58> Vital Signs 06/14/18 09:05 Temperature 98.5 F Pulse Rate 84 Respiratory 18 Rate Blood Pressure 158/51 O2 Sat by Pulse 98 Oximetry - Reevaluation(s) Reevaluation #1: 06/14/18 09:32 PA supervision: I personally do a [id number] evaluation the patient and did examine the patient. I do agree with the PA assessment and plan unless otherwise stated. (Breezy Tellez) Reevaluation #2: 06/14/18 11:58 I did fill out a physician clinical certification. Patient will be admitted with the diagnosis of acute psychosis (Breezy Tellez) Medical Decision Making - Lab Data Result diagrams: 06/14/18 09:32 06/14/18 09:32 <Saloni Zhang - Last Filed: 06/14/18 11:41> - Lab Data Result diagrams: 06/14/18 09:32 06/14/18 09:32 <Breezy Tellez - Last Filed: 06/14/18 11:58> - Medical Decision Making 57-year-old female history of bipolar disorder presents emergency Department with flight of ideas. She has pressured speech and on comfortable speaking. She has word salad. At this time Patient has no IVs medical emergency. She denies any specific pain. Review of systems and history is difficult to obtain. She apparently was out of her medication for the past 4 days according to EMS. Patient is medically clear at this time for EPS evaluation. Blood work and blood alcohol test were obtained. Patient is evaluated by EPS. Patient and Patient needs to have inpatient psychiatric treatment. Clinical certification will be filled out by Dr. Tellez. Petition filled out by the patient's . (Saloni Zhang) - Lab Data Lab Results 06/14/18 06/14/18 06/14/18 Range/Units 09:32 09:32 09:40 WBC 9.9 (3.8-10.6) k/uL RBC 4.70 (3.80-5.40) m/uL Hgb 13.6 (11.4-16.0) gm/dL Hct 40.8 (34.0-46.0) % MCV 86.8 (80.0-100.0) fL MCH 28.9 (25.0-35.0) pg MCHC 33.3 (31.0-37.0) g/dL RDW 12.7 (11.5-15.5) % Plt Count 271 (150-450) k/uL Neutrophils % 82 % Lymphocytes % 11 % Monocytes % 4 % Eosinophils % 2 % Basophils % 1 % Neutrophils # 8.2 H (1.3-7.7) k/uL Lymphocytes # 1.0 (1.0-4.8) k/uL Monocytes # 0.4 (0-1.0) k/uL Eosinophils # 0.2 (0-0.7) k/uL Basophils # 0.1 (0-0.2) k/uL Sodium 144 (137-145) mmol/L Potassium 4.4 (3.5-5.1) mmol/L Chloride 110 H (98-107) mmol/L Carbon Dioxide 23 (22-30) mmol/L Anion Gap 11 mmol/L BUN 23 H (7-17) mg/dL Creatinine 1.20 H (0.52-1.04) mg/dL Est GFR (CKD-EPI)AfAm 53 (>60 ml/min/1.73 sqM) Est GFR (CKD-EPI)NonAf 46 (>60 ml/min/1.73 sqM) Glucose 90 (74-99) mg/dL Calcium 10.1 (8.4-10.2) mg/dL Total Bilirubin 0.7 (0.2-1.3) mg/dL AST 34 (14-36) U/L ALT 16 (9-52) U/L Alkaline Phosphatase 64 (38-126) U/L Total Protein 7.3 (6.3-8.2) g/dL Albumin 4.5 (3.5-5.0) g/dL Urine Color Yellow Urine Appearance Clear (Clear) Urine pH 6.0 (5.0-8.0) Ur Specific [place] 1.013 (1.001-1.035) Urine Protein 1+ H (Negative) Urine Glucose (UA) Negative (Negative) Urine Ketones 1+ H (Negative) Urine Blood Trace H (Negative) Urine Nitrite Negative (Negative) Urine Bilirubin Negative (Negative) Urine Urobilinogen <2.0 (<2.0) mg/dL Ur Leukocyte Esterase Moderate H (Negative) Urine RBC 2 (0-5) /hpf Urine WBC 6 H (0-5) /hpf Ur Squamous Epith Cells <1 (0-4) /hpf Hyaline Casts 10 H (0-2) /lpf Urine Mucus Rare H (None) /hpf Urine Opiates Screen Not Detected (NotDetected) Ur Oxycodone Screen Not Detected (NotDetected) Urine Methadone Screen Not Detected (NotDetected) Ur Propoxyphene Screen Not Detected (NotDetected) Ur Barbiturates Screen Not Detected (NotDetected) U Tricyclic Antidepress Not Detected (NotDetected) Ur Phencyclidine Scrn Not Detected (NotDetected) Ur Amphetamines Screen Not Detected (NotDetected) U Methamphetamines Scrn Not Detected (NotDetected) U Benzodiazepines Scrn Not Detected (NotDetected) Urine Cocaine Screen Not Detected (NotDetected) U Marijuana (THC) Screen Not Detected (NotDetected) Serum Alcohol <10 mg/dL Disposition Is patient prescribed a controlled substance at d/c from ED?: No Time of Disposition: 11:42 <Saloni Zhang - Last Filed: 06/14/18 11:41> <Breezy Tellez - Last Filed: 06/14/18 11:58> Clinical Impression: Manic behavior, Acute psychosis Disposition: ADMITTED IP TO THIS [facility] Condition: Stable Referrals: Nonstaff,Physician [Primary Care Provider] - 1-2 days
[2018-06-14 09:46] LABS: Basophils # (A) 0.1 k/uL (0-0.2); Basophils % (A) 1 %; Eosinophils # (A) 0.2 k/uL (0-0.7); Eosinophils % (A) 2 %; HCT 40.8 % (34.0-46.0); HGB 13.6 gm/dL (11.4-16.0); Lymphocytes % (A) 11 %; MCH 28.9 pg (25.0-35.0); MCHC 33.3 g/dL (31.0-37.0); MCV 86.8 fL (80.0-100.0); Mean Platelet Volume 6.2; Monocytes # (A) 0.4 k/uL (0-1.0); Monocytes % (A) 4 %; Neutrophils # (A) 8.2 k/uL (1.3-7.7); Neutrophils % (A) 82 %; Platelet Count 271 k/uL (150-450); RDW 12.7 % (11.5-15.5); WBC 9.9 k/uL (3.8-10.6)
[2018-06-14 09:58] LABS: ALT 16 U/L (9-52); AST 34 U/L (14-36); Albumin 4.5 g/dL (3.5-5.0); Alcohol <10 mg/dL; Alkaline Phosphatase 64 U/L (38-126); Anion Gap 11 mmol/L; Blood Urea Nitrogen 23 mg/dL (7-17); Calcium 10.1 mg/dL (8.4-10.2); Carbon Dioxide 23 mmol/L (22-30); Chloride 110 mmol/L (98-107); Glucose 90 mg/dL (74-99); Potassium 4.4 mmol/L (3.5-5.1); Sodium 144 mmol/L (137-145); Total Bilirubin 0.7 mg/dL (0.2-1.3); Total Protein 7.3 g/dL (6.3-8.2)
[2018-06-14 10:01] LABS: Appearance,Urine Clear (Clear); Bilirubin,Urine Negative (Negative); Blood,Urine Trace (Negative); Color,Urine Yellow; Glucose,Urine (UA) Negative (Negative); Hyaline Casts,Urine 10 /lpf (0-2); Ketones,Urine 1+ (Negative); Leukocyte Esterase,Urine Moderate (Negative); Mucus,Urine Rare /hpf; Nitrite,Urine Negative (Negative); Protein,Urine 1+ (Negative); RBC,Urine 2 /hpf (0-5); Specific Gravity,Urine 1.013 (1.001-1.035); Squamous Epithelial Cell,Urine <1 /hpf (0-4); Urobilinogen,Urine <2.0 mg/dL (<2.0); WBC,Urine 6 /hpf (0-5)
[2018-06-14 10:39] LABS: Amphetamine Screen,Urine Not Detected (NotDetected); Barbiturate Screen,Urine Not Detected (NotDetected); Benzodiazepines Screen,Urine Not Detected (NotDetected); Cocaine Screen,Urine Not Detected (NotDetected); Methadone Screen, Urine Not Detected (NotDetected); Opiate Screen,Urine Not Detected (NotDetected); Oxycodone Screen, Urine Not Detected (NotDetected); Phencyclidine Screen,Urine Not Detected (NotDetected); Tricyclic Antidepressant,Urine Not Detected (NotDetected); Urn Cannabinoid Scrn Not Detected (NotDetected)
[2018-06-14] MEDS ORDERED: MAGNESIUM HYDROXIDE 2,400 MG/10 ML CUP PO PRN (15:36)
[2018-06-14] MEDS ORDERED: ACETAMINOPHEN TAB 325 MG TAB PO PRN (15:36)
[2018-06-14] MEDS ORDERED: MAG HYDROX/AL HYDROX/SIMETH 30 ML CUP PO PRN (15:36)
[2018-06-14] MEDS: lamoTRIgine 100 MG TAB PO SCH ×2 (17:03→21:19)
--- NOTE | 2018-06-14 17:56 | P.CONS ---
History of Present Illness - Reason for Consult Consult date: 06/14/18 Hypothyroidism - History of Present Illness The patient is a 67-year-old female with a past mental history of bipolar disorder and hypothyroidism who presented to the ED with complaints of flight of ideas. The patient was subsequently admitted to the psychiatric unit for an acute manic episode. Presently the patient is denying any active complaints including fever, chills, nausea, vomiting, chest pain, shortness of breath, diarrhea, constipation, abdominal pain, dysuria, dizziness, or palpitations. The patient notes that the only nonpsychiatric medication she takes is levothyroxine 88 g daily. Review of Systems Pertinent positives and negatives as discussed in HPI, a complete review of systems was performed and all other systems are negative. Past Medical History Past Medical History: Thyroid Disorder, Vascular Disorder Additional Past Medical History / Comment(s): Other HX: R lung nodules-pt states noncancerous , slight kidney problems-lab tests alittle abnormal pt states due to previously having been on lithium, stable descending aortic aneurysm, cholelithiasis, hypothyroidism, varicosities R leg, constipation. BOWEL OBSTUCTION History of Any Multi-Drug Resistant Organisms: None Reported Past Surgical History: Adenoidectomy, Appendectomy, Bariatric Surgery, Ear Surgery, Tonsillectomy Additional Past Surgical History / Comment(s): 10-04-15 ADMITTED WITH CLINICAL IMPRESSION OF LT UPPER QUAD PAIN, INFECTION D/T GASTRIC BAND PROCEDURE. Lap band 2003 with a port replacement later, L ear cyst removal, colonoscopy-normal ,EXP LAP REDUCTION OF VENTRAL HERNIA,DECOMPRESSION OF BOWEL,DIVISION OF GASTRIC BAND CATHETER FREEING AREAD OF BOWEL THAT WAS STRANGULATED. Past Anesthesia/Blood Transfusion Reactions: No Reported Reaction Additional Past Anesthesia/Blood Transfusion Reaction / Comm: Pt has never recieved blood. Past Psychological History: Bipolar Smoking Status: Never smoker Past Alcohol Use History: Occasional Past Drug Use History: None Reported - Past Family History Father Additional Family Medical History / Comment(s): Father of ruptured aortic aneurysm at age 76yrs. Mother Additional Family Medical History / Comment(s): Mother had an abdominal aneurysm. She in her sleep at age 78yrs. Medications and Allergies Home Medications Medication Instructions Recorded Confirmed Type Ascorbic Acid [Vitamin C] 500 mg PO DAILY 12/06/15 06/14/18 History Calcium Carbonate/Vitamin D3 325 mg PO DAILY 12/06/15 06/14/18 History [Calcium 600-Vit D3 400 Tablet] Niacinamide [Niacin] 500 mg PO DAILY 12/06/15 06/14/18 History Cholecalciferol [Vitamin D3] 4,000 unit PO DAILY 12/07/15 06/14/18 History Kelp 150 mcg PO DAILY 12/07/15 06/14/18 History L.acidoph,Paracasei, B.lactis 2 cap PO DAILY 12/07/15 06/14/18 History [Probiotic] Magnesium Oxide [Mag-Ox] 500 mg PO Q48H 12/07/15 06/14/18 History Levothyroxine Sodium [Synthroid] 88 mcg PO DAILY #14 tablet 01/01/16 06/14/18 Rx Multivitamins, Thera [Multivitamin 1 tab PO DAILY #30 tab 01/01/16 06/14/18 Rx (formulary)] lamoTRIgine [LaMICtal] 100 mg PO TID #21 tab 01/01/16 06/14/18 Rx Lutein-Zeaxanthin 25mg-5mg 1 cap PO DAILY 06/14/18 06/14/18 History Vitamin B Complex 1 cap PO DAILY 06/14/18 06/14/18 History Ziprasidone [Geodon] 160 mg PO DAILY 06/14/18 06/14/18 History Allergies Allergy/AdvReac Type Severity Reaction Status Date / Time alendronate sodium Allergy Rash/Hives Verified 06/14/18 12:02 [From Fosamax] amoxicillin Allergy Rash/Hives Verified 06/14/18 12:02 guaifenesin [From Robitussin] Allergy Rash/Hives Verified 06/14/18 12:02 ibandronate sodium Allergy Rash/Hives Verified 06/14/18 12:02 [From Boniva] Physical Exam Vitals: Vital Signs Temp Pulse Pulse Resp BP BP Pulse Ox 06/14/18 14:50 97.1 F L 89 16 145/92 06/14/18 14:43 98.5 F 78 20 158/84 99 06/14/18 09:05 98.5 F 84 18 158/51 98 Intake and Output 06/14/18 06/14/18 06/14/18 06:59 14:59 22:59 Other: Weight 77.111 kg 77.678 kg General: non toxic, no distress, appears at stated age, normal weight Derm: no unusual rashes/lesions no unusual ecchymoses, warm, dry Head: atraumatic, normocephalic, symmetric Eyes: EOMI, no lid lag, anicteric sclera, pupils equal round reactive to light ENT: Nose and ears atraumatic, no thrush, no pharyngeal erythema Neck: No thyromegaly, no cervical lymphadenopathy, trachea midline, supple Mouth: no lip lesion, mucus membranes moist Cardiovascular: S1S2 reg, no murmur, positive posterior tibial pulse bilateral, no edema, capillary refill less than 2 seconds Lungs: CTA bilateral, no rhonchi, no rales , no accessory muscle use Abdominal: soft, nontender to palpation, no guarding, no appreciable organomegaly, normal bowel sounds Ext: no gross muscle atrophy, muscle strength 5 out of 5 in all 4 extremities grossly, no contractures, Neuro: CN II-XI grossly intact, light touch intact all 4 extremities, finger to nose within normal limits, Psych: Alert, oriented, pressured speech, tangentiality, elated mood Results CBC & Chem 7: 06/14/18 09:32 18 09:32 Labs: Abnormal Lab Results - Last 24 Hours (Table) 06/14/18 06/14/18 06/14/18 Range/Units 09:32 09:32 09:40 Neutrophils # 8.2 H (1.3-7.7) k/uL Chloride 110 H (98-107) mmol/L BUN 23 H (7-17) mg/dL Creatinine 1.20 H (0.52-1.04) mg/dL Urine Protein 1+ H (Negative) Urine Ketones 1+ H (Negative) Urine Blood Trace H (Negative) Ur Leukocyte Esterase Moderate H (Negative) Urine WBC 6 H (0-5) /hpf Hyaline Casts 10 H (0-2) /lpf Urine Mucus Rare H (None) /hpf Assessment and Plan Plan: Hypothyroidism - C/w Levothyroxine 88 mcg qam Bipolar disorder - Management as per psychiatry Elevated Creatinine - BROOKE vs CKD - Will monitor Positive UA - Patient asymptomatic. Will hold-off on Abxs DVT//GI prophylaxis - Low risk, patient ambulatory - No indication for GI prophylaxis
[2018-06-14] MEDS: ZIPRASIDONE 80 MG CAP PO SCH (18:07)
[2018-06-15] MEDS: LEVOTHYROXINE 88 MCG TAB PO SCH (06:20)
[2018-06-15] MEDS: ZIPRASIDONE 80 MG CAP PO SCH ×2 (08:51→18:05)
[2018-06-15] MEDS: lamoTRIgine 100 MG TAB PO SCH ×4 (08:51→22:15)
[2018-06-15] MEDS: NIACIN TR 500 MG CAPSULE.ER PO SCH (08:51)
[2018-06-15] MEDS ORDERED: KELP PO SCH (09:00)
[2018-06-15] MEDS ORDERED: NON-FORMULARY DRUG (Vitamin B Complex [Vitamin B Complex] 1 CAP) PO SCH (09:00)
[2018-06-15 10:53] LABS: Calcium 9.9 mg/dL (8.4-10.2); Potassium 4.5 mmol/L (3.5-5.1)
--- NOTE | 2018-06-15 11:34 | P.HP ---
Psychiatric H&P - . H&P Date: 06/15/18 History & Physical: Allergies Allergy/AdvReac Type Severity Reaction Status Date / Time alendronate sodium Allergy Rash/Hives Verified 06/14/18 12:02 [From Fosamax] amoxicillin Allergy Rash/Hives Verified 06/14/18 12:02 guaifenesin [From Robitussin] Allergy Rash/Hives Verified 06/14/18 12:02 ibandronate sodium Allergy Rash/Hives Verified 06/14/18 12:02 [From Boniva] Vital Signs Temp 97.6 F 06/15/18 06:20 Pulse 99 06/15/18 06:20 Resp 14 06/15/18 06:20 BP 126/67 06/15/18 06:20 Pulse Ox 99 06/14/18 14:43 Intake & Output 06/14/18 06/15/18 06/15/18 18:59 06:59 18:59 Weight 77.678 kg Laboratory Last Values WBC 9.9 k/uL (3.8-10.6) 06/14/18 09:32 RBC 4.70 m/uL (3.80-5.40) 06/14/18 09:32 Hgb 13.6 gm/dL (11.4-16.0) 06/14/18 09:32 Hct 40.8 % (34.0-46.0) 06/14/18 09:32 MCV 86.8 fL (80.0-100.0) 06/14/18 09:32 MCH 28.9 pg (25.0-35.0) 06/14/18 09:32 MCHC 33.3 g/dL (31.0-37.0) 06/14/18 09:32 RDW 12.7 % (11.5-15.5) 06/14/18 09:32 Plt Count 271 k/uL (150-450) 06/14/18 09:32 Neutrophils % 82 % 06/14/18 09:32 Lymphocytes % 11 % 06/14/18 09:32 Monocytes % 4 % 06/14/18 09:32 Eosinophils % 2 % 06/14/18 09:32 Basophils % 1 % 06/14/18 09:32 Neutrophils # 8.2 k/uL (1.3-7.7) H 06/14/18 09:32 Lymphocytes # 1.0 k/uL (1.0-4.8) 06/14/18 09:32 Monocytes # 0.4 k/uL (0-1.0) 06/14/18 09:32 Eosinophils # 0.2 k/uL (0-0.7) 06/14/18 09:32 Basophils # 0.1 k/uL (0-0.2) 06/14/18 09:32 Sodium 139 mmol/L (137-145) 06/15/18 09:57 Potassium 4.5 mmol/L (3.5-5.1) 06/15/18 09:57 Chloride 104 mmol/L (98-107) 06/15/18 09:57 Carbon Dioxide 21 mmol/L (22-30) L 06/15/18 09:57 Anion Gap 14 mmol/L 06/15/18 09:57 BUN 17 mg/dL (7-17) 06/15/18 09:57 Creatinine 1.12 mg/dL (0.52-1.04) H 06/15/18 09:57 Est GFR (CKD-EPI)AfAm 58 (>60 ml/min/1.73 sqM) 06/15/18 09:57 Est GFR (CKD-EPI)NonAf 50 (>60 ml/min/1.73 sqM) 06/15/18 09:57 Glucose 113 mg/dL (74-99) H 06/15/18 09:57 Calcium 9.9 mg/dL (8.4-10.2) 06/15/18 09:57 Total Bilirubin 0.7 mg/dL (0.2-1.3) 06/14/18 09:32 AST 34 U/L (14-36) 06/14/18 09:32 ALT 16 U/L (9-52) 06/14/18 09:32 Alkaline Phosphatase 64 U/L (38-126) 06/14/18 09:32 Total Protein 7.3 g/dL (6.3-8.2) 06/14/18 09:32 Albumin 4.5 g/dL (3.5-5.0) 06/14/18 09:32 Triglycerides 59 mg/dL (<150) 06/15/18 09:57 Cholesterol 233 mg/dL (<200) H 06/15/18 09:57 LDL Cholesterol, Calc 147 mg/dL (0-99) H 06/15/18 09:57 HDL Cholesterol 74 mg/dL (40-60) H 06/15/18 09:57 Urine Color Yellow 06/14/18 09:40 Urine Appearance Clear (Clear) 06/14/18 09:40 Urine pH 6.0 (5.0-8.0) 06/14/18 09:40 Ur Specific [place] 1.013 (1.001-1.035) 06/14/18 09:40 Urine Protein 1+ (Negative) H 06/14/18 09:40 Urine Glucose (UA) Negative (Negative) 06/14/18 09:40 Urine Ketones 1+ (Negative) H 06/14/18 09:40 Urine Blood Trace (Negative) H 06/14/18 09:40 Urine Nitrite Negative (Negative) 06/14/18 09:40 Urine Bilirubin Negative (Negative) 06/14/18 09:40 Urine Urobilinogen <2.0 mg/dL (<2.0) 06/14/18 09:40 Ur Leukocyte Esterase Moderate (Negative) H 06/14/18 09:40 Urine RBC 2 /hpf (0-5) 06/14/18 09:40 Urine WBC 6 /hpf (0-5) H 06/14/18 09:40 Ur Squamous Epith Cells <1 /hpf (0-4) 06/14/18 09:40 Hyaline Casts 10 /lpf (0-2) H 06/14/18 09:40 Urine Mucus Rare /hpf (None) H 06/14/18 09:40 Urine Opiates Screen Not Detected (NotDetected) 06/14/18 09:40 Ur Oxycodone Screen Not Detected (NotDetected) 06/14/18 09:40 Urine Methadone Screen Not Detected (NotDetected) 06/14/18 09:40 Ur Propoxyphene Screen Not Detected (NotDetected) 06/14/18 09:40 Ur Barbiturates Screen Not Detected (NotDetected) 06/14/18 09:40 U Tricyclic Antidepress Not Detected (NotDetected) 06/14/18 09:40 Ur Phencyclidine Scrn Not Detected (NotDetected) 06/14/18 09:40 Ur Amphetamines Screen Not Detected (NotDetected) 06/14/18 09:40 U Methamphetamines Scrn Not Detected (NotDetected) 06/14/18 09:40 U Benzodiazepines Scrn Not Detected (NotDetected) 06/14/18 09:40 Urine Cocaine Screen Not Detected (NotDetected) 06/14/18 09:40 U Marijuana (THC) Screen Not Detected (NotDetected) 06/14/18 09:40 Serum Alcohol <10 mg/dL 06/14/18 09:32 Chief Complaint: [67-year-old female presents emergency department today with chief complaint of manic episode. She has a history of high blood disorder. She's been out of her medication for 4 days according to EMS. Patient arrives to emergency room with complaint of ideas. Unable to obtain significant history due to N coherent conversation. Patient talks about not use, agreed grass and oranges and peaches and watermelon. Patient denies any physical pain at this time. Patient has been admitted in the past for similar complaints.] Past Medical History Past Medical History: Thyroid Disorder, Vascular Disorder Additional Past Medical History / Comment(s): Other HX: R lung nodules-pt states noncancerous , slight kidney problems-lab tests alittle abnormal pt states due to previously having been on lithium, stable descending aortic aneurysm, cholelithiasis, hypothyroidism, varicosities R leg, constipation. BOWEL OBSTUCTION History of Any Multi-Drug Resistant Organisms: None Reported Past Surgical History: Adenoidectomy, Appendectomy, Bariatric Surgery, Ear Surgery, Tonsillectomy Additional Past Surgical History / Comment(s): 10-04-15 ADMITTED WITH CLINICAL IMPRESSION OF LT UPPER QUAD PAIN, INFECTION D/T GASTRIC BAND PROCEDURE. Lap band 2003 with a port replacement later, L ear cyst removal, colonoscopy-normal ,EXP LAP REDUCTION OF VENTRAL HERNIA,DECOMPRESSION OF BOWEL,DIVISION OF GASTRIC BAND CATHETER FREEING AREAD OF BOWEL THAT WAS STRANGULATED. Past Anesthesia/Blood Transfusion Reactions: No Reported Reaction Additional Past Anesthesia/Blood Transfusion Reaction / Comm: Pt has never recieved blood. Past Psychological History: Bipolar Smoking Status: Never smoker Past Alcohol Use History: Occasional Past Drug Use History: None Reported Current Medications: [Please see current medication list which includes Zyprexa and Lamictal] Constitutional Review: [Review of systems reveals that she has complaints of bruising easily and her mental status reveals that she is streamlining talkative tangential and circumstantial.] Musculoskeletal Examination - Abnormal/Involuntary Movements: [no tremors ] Strength: [greater than antigravity (greater than/equal to 3/5) in all extremities, weakness:] Muscle Tone: [no impairment, dystonia, hypertonic/myoclonus, rigidity, flaccid] Gait: [grossly normal, antalgic, limping, in wheelchair, wide-based] Station: [grossly normal, unsteady, in wheelchair] Mental Status Examination - General Appearance: [ disheveled, casual, bizarre, appears older than stated age , ] Speech/Language: [She has rapid speech and very disorganized tangential and circumstantial and very pressured] Attitude/Behavior: [cooperative, guarded, irritable, withdrawn, indifferent, other] Mood: [euphoric, anxious, elated, irritable] Affect: [ labile, blunted constricted] Orientation: [She is oriented to place and person but not time] Thought Content: [ delusions, obsessions, ] Risk Factors: [She is not suicidal homicidal but very bizarre behavior] Perception: [wnlr] Thought Processes: [concrete, circumstantial, tangential, other] Concentration/Attention Span: [impaired] [Per observation and interview with the patient] Recent Memory: [ impaired] [ 1out of 3 in 3 minutes] Remote Memory: [wnl, ] [past events, as related history] Intelligence: [ average] [based on history, based on vocabulary, syntax, grammar , and content] Judgement: [ poor] [per patient's behavior/history of present illness] Insight: [poor] [understanding severity of illness/history of present illness] Admitting Diagnosis: [Bipolar affective disorder severe unstable at the present time manic] Patient Strengths - Personal Skills: [. and stable housing Stable housing] Steady employment/financial stability: Retired Housing stability: [ and housing] Motivation, determination, readiness for change: [Motivated to get better and leave] Patient Limitations: [medication, non-compliance Initial Plan of Care: [Initial treatment plan will stabilize her medication since she's been off for 4 days and get lab values on Lamictal and prolactin since she has any adverse consequences to the antipsychotic. Therefore HE will approximately be 4-5 days hospitalization stable as compared to when she was here in April 2017] Estimated Length of Stay: [7 days] Initial Discharge Plan: [home and back to her outpatient psychiatrist Prognosis: [good, ] Justification for Inpatient Hospitalization - depression resulting in significant loss of functioning.] [Emotional or behavioral conditions and complications requiring 24 hour medical and nursing care.] [Need for special drug therapy, or other therapeutic program requiring continuous hospitalization.] [Failure of social functioning.] [Inability to meet basic life and health needs.] [Biomedical conditions and complications requiring 24 hour medical and nursing care.] [Recovery environment includes detrimental family structure, logical impediments to out-patient treatment.] [Failure of treatment at a lower level of care.] 06/15/18 11:19
[2018-06-15] MEDS: MULTIVITAMINS, THERA 1 EACH TAB PO SCH (13:56)
[2018-06-15] MEDS: CHOLECALCIFEROL 1,000 UNIT TAB PO SCH (13:56)
[2018-06-15] MEDS: VIT A,C & E-LUTEIN-MINERALS 1 EACH TAB PO SCH (13:57)
[2018-06-15] MEDS: MAGNESIUM OXIDE 400 MG TAB PO SCH (13:57)
[2018-06-15] MEDS: LACTOBACILLUS ACIDOPH & BULGAR 1 EACH PACKET PO SCH (13:57)
[2018-06-15] MEDS: CALCIUM CARB-VIT D 500MG-200UN 1 EACH TAB PO SCH (13:58)
[2018-06-15] MEDS: ASCORBIC ACID 500 MG TAB PO SCH (13:58)
[2018-06-15 16:12] LABS: Hemoglobin A1C 5.5 % (4.0-6.0)
[2018-06-16] MEDS: LEVOTHYROXINE 88 MCG TAB PO SCH (06:44)
[2018-06-16] MEDS: lamoTRIgine 100 MG TAB PO SCH ×3 (08:32→20:29)
[2018-06-16] MEDS: NIACIN TR 500 MG CAPSULE.ER PO SCH (08:32)
[2018-06-16] MEDS: ZIPRASIDONE 80 MG CAP PO SCH ×2 (08:32→18:12)
[2018-06-16] MEDS: MULTIVITAMINS, THERA 1 EACH TAB PO SCH (08:33)
[2018-06-16] MEDS: VIT A,C & E-LUTEIN-MINERALS 1 EACH TAB PO SCH (12:54)
[2018-06-16] MEDS: LACTOBACILLUS ACIDOPH & BULGAR 1 EACH PACKET PO SCH (12:54)
[2018-06-16] MEDS: CHOLECALCIFEROL 1,000 UNIT TAB PO SCH (12:54)
[2018-06-16] MEDS: ASCORBIC ACID 500 MG TAB PO SCH (12:54)
[2018-06-16] MEDS: CALCIUM CARB-VIT D 500MG-200UN 1 EACH TAB PO SCH (12:54)
--- NOTE | 2018-06-16 13:17 | P.PN ---
Subjective Progress Note Date: 06/16/18 Principal diagnosis: Admitting Diagnosis: [Bipolar affective disorder severe unstable at the present time manic] Interval History: This 67 year old female remains confused and confabulates with tangential and circumstantial conversations. She really has no clue why she is here. Chief Complaint: [67-year-old female presents emergency department today with chief complaint of manic episode. She has a history of high blood disorder. She's been out of her medication for 4 days according to EMS. Patient arrives to emergency room with complaint of ideas. Unable to obtain significant history due to N coherent conversation. Patient talks about not use, agreed grass and oranges and peaches and watermelon. Patient denies any physical pain at this time. Patient has been admitted in the past for similar complaints. Mental Status Examination - General Appearance: [ disheveled, casual, bizarre, appears older than stated age , ] Speech/Language: [She has rapid speech and very disorganized tangential and circumstantial and very pressured] Attitude/Behavior: [cooperative, guarded, irritable, withdrawn, indifferent, other] Mood: [euphoric, anxious, elated, irritable] Affect: [ labile, blunted constricted] Orientation: [She is oriented to place and person but not time] Thought Content: [ delusions, obsessions, ] Risk Factors: [She is not suicidal homicidal but very bizarre behavior] Perception: [wnlr] Thought Processes: [concrete, circumstantial, tangential, other] Concentration/Attention Span: [impaired] [Per observation and interview with the patient] Recent Memory: [ impaired] [ 1out of 3 in 3 minutes] Remote Memory: [wnl, ] [past events, as related history] Intelligence: [ average] [based on history, based on vocabulary, syntax, grammar , and content] Judgement: [ poor] [per patient's behavior/history of present illness] Insight: [poor] [understanding severity of illness/history of present illness] Admitting Diagnosis: [Bipolar affective disorder severe unstable at the present time manic] Patient Strengths - Personal Skills: and stable housing Stable housing] Steady employment/financial stability: Retired Housing stability: [ and housing Motivation, determination, readiness for change: [Motivated to get better and leave] Patient Limitations: medication, non-compliance Initial Plan of Care: [Initial treatment plan will stabilize her medication since she's been off for 4 days and get lab values on Lamictal and prolactin since she has any adverse consequences to the antipsychotic. Therefore HE will approximately be 4-5 days hospitalization stable as compared to when she was here in April 2017] Estimated Length of Stay: [6days] [id number] time 15 minutes Objective - Vital Signs Vital signs: Vital Signs Temp 97.5 F L 06/16/18 06:59 Pulse 71 06/16/18 06:59 Resp 12 06/16/18 06:59 BP 130/65 06/16/18 06:59 Pulse Ox 99 06/14/18 14:43 - Labs CBC & Chem 7: 06/14/18 09:32 06/15/18 09:57 Labs: Abnormal Lab Results - Last 24 Hours (Table) 06/15/18 Range/Units 09:57 Prolactin 71.2 H (2.8-29.2) ng/mL
[2018-06-17] MEDS: LEVOTHYROXINE 88 MCG TAB PO SCH (05:58)
[2018-06-17] MEDS: lamoTRIgine 100 MG TAB PO SCH ×3 (07:41→21:16)
[2018-06-17] MEDS: NIACIN TR 500 MG CAPSULE.ER PO SCH (07:41)
[2018-06-17] MEDS: ZIPRASIDONE 80 MG CAP PO SCH ×2 (07:41→16:53)
[2018-06-17] MEDS: MULTIVITAMINS, THERA 1 EACH TAB PO SCH (12:34)
[2018-06-17] MEDS: CHOLECALCIFEROL 1,000 UNIT TAB PO SCH (12:34)
[2018-06-17] MEDS: LACTOBACILLUS ACIDOPH & BULGAR 1 EACH PACKET PO SCH (12:34)
[2018-06-17] MEDS: VIT A,C & E-LUTEIN-MINERALS 1 EACH TAB PO SCH (12:34)
[2018-06-17] MEDS: ASCORBIC ACID 500 MG TAB PO SCH (12:34)
[2018-06-17] MEDS: CALCIUM CARB-VIT D 500MG-200UN 1 EACH TAB PO SCH (12:34)
[2018-06-17] MEDS: MAGNESIUM OXIDE 400 MG TAB PO SCH (12:34)
--- NOTE | 2018-06-17 13:30 | P.PN ---
Subjective Progress Note Date: 06/17/18 Principal diagnosis: Admitting Diagnosis: [Bipolar affective disorder severe unstable at the present time manic] Interval History: This 67 year old female remains confused and confabulates with tangential and circumstantial conversations. She really has no clue why she is here. Wanders the [place] wall and when interviewed states I want to go home. Chief Complaint: [67-year-old female presents emergency department today with chief complaint of manic episode. She has a history of high blood disorder. She's been out of her medication for 4 days according to EMS. Patient arrives to emergency room with complaint of ideas. Unable to obtain significant history due to N coherent conversation. Patient talks about not use, agreed grass and oranges and peaches and watermelon. Patient denies any physical pain at this time. Patient has been admitted in the past for similar complaints. Mental Status Examination - General Appearance: [ disheveled, casual, bizarre, appears older than stated age , ] Speech/Language: [She has rapid speech and very disorganized tangential and circumstantial and very pressured] Attitude/Behavior: [cooperative, guarded, irritable, withdrawn, indifferent, other] Mood: [euphoric, anxious, elated, irritable] Affect: [ labile, blunted constricted] Orientation: [She is oriented to place and person but not time] Thought Content: [ delusions, obsessions, ] Risk Factors: [She is not suicidal homicidal but very bizarre behavior] Perception: [wnlr] Thought Processes: [concrete, circumstantial, tangential, other] Concentration/Attention Span: [impaired] [Per observation and interview with the patient] Recent Memory: [ impaired] [ 1out of 3 in 3 minutes] Remote Memory: [wnl, ] [past events, as related history] Intelligence: [ average] [based on history, based on vocabulary, syntax, grammar , and content] Judgement: [ poor] [per patient's behavior/history of present illness] Insight: [poor] [understanding severity of illness/history of present illness] Admitting Diagnosis: [Bipolar affective disorder severe unstable at the present time manic] Patient Strengths - Personal Skills: and stable housing Stable housing] Steady employment/financial stability: Retired Housing stability: [ and housing Motivation, determination, readiness for change: [Motivated to get better and leave] Patient Limitations: medication, non-compliance Initial Plan of Care: [Initial treatment plan will stabilize her medication since she's been off for 4 days and get lab values on Lamictal and prolactin since she has any adverse consequences to the antipsychotic. Therefore she will be here approximately be 3-4 days hospitalization stable as compared to when she was here in April 2017] Estimated Length of Stay: [6days] [id number] time 15 minutes Objective - Vital Signs Vital signs: Vital Signs Temp 97.8 F 06/17/18 06:40 Pulse 83 06/17/18 06:40 Resp 18 06/17/18 06:40 BP 153/72 06/17/18 06:40 Pulse Ox 99 06/14/18 14:43 - Labs CBC & Chem 7: 06/14/18 09:32 06/15/18 09:57
[2018-06-17] MEDS ORDERED: HALOPERIDOL LACTATE 5 MG/ML 1 ML VIAL ONE (18:28)
[2018-06-17] MEDS ORDERED: HALOPERIDOL LACTATE 5 MG/ML 1 ML VIAL IM ONE (18:29)
[2018-06-18] MEDS: LEVOTHYROXINE 88 MCG TAB PO SCH (06:09)
[2018-06-18] MEDS: lamoTRIgine 100 MG TAB PO SCH ×4 (07:56→23:15)
[2018-06-18] MEDS: NIACIN TR 500 MG CAPSULE.ER PO SCH ×2 (07:56→08:05)
[2018-06-18] MEDS: ZIPRASIDONE 80 MG CAP PO SCH ×2 (07:56→17:57)
--- NOTE | 2018-06-18 09:22 | P.PN ---
Progress Note - Text Interval history: The patient is found in group she follows me to an interview room. The patient states that she is doing good and would like to be discharged today. Nursing staff called me yesterday evening indicating that the patient was experiencing symptoms of psychosis and seemed to be more disorganized. We did utilize a Haldol when necessary. She reportedly has been compliant with her Lamictal and Geodon but continues to describe suspiciousness of the nurses as he may be trying to give her something it's not appropriate. She indicates her appetite stable. Staff reported that she did sleep 6 hours last evening. Mental status exam: The patient is an overweight female appearing her stated age. She is dressed in hospital attire. She is cooperative she is easily directed. She does have spontaneous speech and is verbose during the session. She demonstrates disorganization of thought specifically tangential thinking. She expresses some paranoid thinking that the nurses may not be giving her the correct medicine. She is reporting no suicidal or homicidal thoughts. At this time she indicates having no auditory or visual hallucinations but she is a questionable historian. She demonstrates no verbal or physical aggressiveness she demonstrates no abnormal involuntary movements. Insight and judgment are limited. Affect is constricted throughout the session. Plan: The patient will continue on her current psychotropic medication. Vital signs reviewed they're within normal limits. She is encouraged to continue participating in the milieu and we will monitor her for safety.
[2018-06-18] MEDS: MULTIVITAMINS, THERA 1 EACH TAB PO SCH (13:17)
[2018-06-18] MEDS: VIT A,C & E-LUTEIN-MINERALS 1 EACH TAB PO SCH (13:17)
[2018-06-18] MEDS: CALCIUM CARB-VIT D 500MG-200UN 1 EACH TAB PO SCH (13:21)
[2018-06-18] MEDS: ASCORBIC ACID 500 MG TAB PO SCH (13:21)
[2018-06-18] MEDS: CHOLECALCIFEROL 1,000 UNIT TAB PO SCH (13:21)
[2018-06-18] MEDS: LACTOBACILLUS ACIDOPH & BULGAR 1 EACH PACKET PO SCH (13:22)
[2018-06-18] MEDS ORDERED: LORazepam 1 MG TAB PO STA (21:00)
[2018-06-18] MEDS ORDERED: HALOPERIDOL LACTATE 5 MG/ML 1 ML VIAL IM STA (22:22)
[2018-06-19] MEDS: LEVOTHYROXINE 88 MCG TAB PO SCH (06:07)
[2018-06-19] MEDS: lamoTRIgine 100 MG TAB PO SCH ×3 (08:12→21:48)
[2018-06-19] MEDS: ZIPRASIDONE 80 MG CAP PO SCH ×2 (08:12→17:46)
[2018-06-19] MEDS: NIACIN TR 500 MG CAPSULE.ER PO SCH (08:12)
[2018-06-19] MEDS: CHOLECALCIFEROL 1,000 UNIT TAB PO SCH (11:51)
[2018-06-19] MEDS: ASCORBIC ACID 500 MG TAB PO SCH (11:51)
[2018-06-19] MEDS: CALCIUM CARB-VIT D 500MG-200UN 1 EACH TAB PO SCH (11:51)
[2018-06-19] MEDS: MAGNESIUM OXIDE 400 MG TAB PO SCH (11:51)
[2018-06-19] MEDS: LACTOBACILLUS ACIDOPH & BULGAR 1 EACH PACKET PO SCH (11:51)
[2018-06-19] MEDS: VIT A,C & E-LUTEIN-MINERALS 1 EACH TAB PO SCH (11:52)
[2018-06-19] MEDS: MULTIVITAMINS, THERA 1 EACH TAB PO SCH (11:52)
--- NOTE | 2018-06-19 13:13 | P.PN ---
Progress Note - Text Interval history: The patient is found at a table in the hallway. The patient makes brief eye contact and then closes her eyes. She has her arms crossed and is dressed in hospital attire. She provides no verbal response when offered the opportunity to speak in an office. He provided no response to any other questions asked during our interaction. The patient's was noted to be disorganized during time she spent with social work. For the last 2 days nursing has described the patient appearing more psychotic and she has required use of intramuscular Haldol both days. Reportedly that medication did provide some calming effects. Mental status exam: As above. The patient provides no verbal responses. She held her eyes closed tightly during most of our interaction. She demonstrated no physical aggressiveness or any abnormal involuntary movements. Insight and judgment are poor. She appears to be in no acute physical distress. Plan: The patient appears to be experiencing symptoms of psychosis. We have been utilizing Haldol when necessary. We will continue to monitor her for safety and provide reality orientation when possible. Vital signs reviewed.
[2018-06-20] MEDS: ZIPRASIDONE 80 MG CAP PO SCH ×2 (08:45→18:13)
[2018-06-20] MEDS: lamoTRIgine 100 MG TAB PO SCH ×3 (08:45→20:59)
[2018-06-20] MEDS: LEVOTHYROXINE 88 MCG TAB PO SCH (08:46)
[2018-06-20] MEDS: MULTIVITAMINS, THERA 1 EACH TAB PO SCH (08:46)
[2018-06-20] MEDS: NIACIN TR 500 MG CAPSULE.ER PO SCH ×2 (08:46→14:32)
--- NOTE | 2018-06-20 11:58 | P.PN ---
Subjective Progress Note Date: 06/20/18 Principal diagnosis: Admitting Diagnosis: [Bipolar affective disorder severe unstable at the present time manic] Interval History: This 67 year old female alet and oriented to person, place and time.. Mental Status Examination - General Appearance: casual, bizarre, appears older than stated age Speech/Language: [She has normal speech and tangential and circumstantial and very pressured] Attitude/Behavior: cooperative, guarded, irritable, withdrawn, indifferent, other Mood: [euphoric, anxious, irritable] Affect: [ labile Orientation: [She is oriented to place and person but time] Thought Content: obsessions Risk Factors: [She is not suicidal homicidal but very bizarre behavior] Perception: [wnlr] Thought Processes: circumstantial, tangential] Concentration/Attention Span: [wnl [Per observation and interview with the patient] Recent Memory: [ improving [ 3 out of 3 in 3 minutes] Remote Memory: [wnl, ] [past events, as related history] Intelligence: [ average] [based on history, based on vocabulary, syntax, grammar , and content] Judgement: improved [per patient's behavior/history of present illness] Insight: improved [understanding severity of illness/history of present illness] Admitting Diagnosis: [Bipolar affective disorder severe unstable at the present time manic] Patient Strengths - taking medications Personal Skills: and stable housing Stable housing] Steady employment/financial stability: Retired Housing stability: [ and housing Motivation, determination, readiness for change: [Motivated to get better and leave] Patient Limitations: medication, non-compliance suggested to client to defer and accept treatment Estimated Length of Stay: [3days] [id number] time 15 minutes Objective - Vital Signs Vital signs: Vital Signs Temp 97.9 F 06/20/18 02:10 Pulse 91 06/20/18 02:54 Resp 16 06/20/18 02:54 BP 139/69 06/20/18 02:54 Pulse Ox 96 06/20/18 02:10 - Labs CBC & Chem 7: 06/14/18 09:32 06/15/18 09:57
[2018-06-20] MEDS: CALCIUM CARB-VIT D 500MG-200UN 1 EACH TAB PO SCH (12:56)
[2018-06-20] MEDS: LACTOBACILLUS ACIDOPH & BULGAR 1 EACH PACKET PO SCH (12:56)
[2018-06-20] MEDS: VIT A,C & E-LUTEIN-MINERALS 1 EACH TAB PO SCH (12:56)
[2018-06-20] MEDS: CHOLECALCIFEROL 1,000 UNIT TAB PO SCH (12:56)
[2018-06-20] MEDS: ASCORBIC ACID 500 MG TAB PO SCH (12:56)
[2018-06-21 06:38] VITALS: PULSE 100; RESP 18
[2018-06-21] MEDS: LEVOTHYROXINE 88 MCG TAB PO SCH (06:48)
[2018-06-21] MEDS: ZIPRASIDONE 80 MG CAP PO SCH ×2 (07:54→17:55)
[2018-06-21] MEDS: lamoTRIgine 100 MG TAB PO SCH ×3 (08:19→21:10)
[2018-06-21] MEDS: NIACIN TR 500 MG CAPSULE.ER PO SCH (08:19)
[2018-06-21] MEDS: LACTOBACILLUS ACIDOPH & BULGAR 1 EACH PACKET PO SCH (12:59)
[2018-06-21] MEDS: CHOLECALCIFEROL 1,000 UNIT TAB PO SCH (12:59)
[2018-06-21] MEDS: MULTIVITAMINS, THERA 1 EACH TAB PO SCH (13:00)
[2018-06-21] MEDS: CALCIUM CARB-VIT D 500MG-200UN 1 EACH TAB PO SCH (13:00)
[2018-06-21] MEDS: ASCORBIC ACID 500 MG TAB PO SCH (13:00)
[2018-06-21] MEDS: MAGNESIUM OXIDE 400 MG TAB PO SCH (13:01)
[2018-06-21] MEDS: VIT A,C & E-LUTEIN-MINERALS 1 EACH TAB PO SCH (13:02)
--- NOTE | 2018-06-21 14:40 | P.PN ---
Subjective Progress Note Date: 06/21/18 Principal diagnosis: Admitting Diagnosis: [Bipolar affective disorder severe unstable at the present time manic] Interval History: This 67 year old female alet and oriented to person, place and time. 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 Mental Status Examination - General Appearance: casual, appears older than stated age Speech/Language: [She has normal speech and tangential and circumstantial and less pressured] Attitude/Behavior: cooperative, guarded, withdrawn, indifferent, other Mood: [euphoric, anxious, irritable] Affect: [ labile Orientation: [She is oriented to place and person but time] Thought Content: obsessions Risk Factors: [She is not suicidal homicidal but very bizarre behavior] Perception: wnl Thought Processes: clearing in nature Concentration/Attention Span: [wnl [Per observation and interview with the patient] Recent Memory: [ improving [ 3 out of 3 in 3 minutes] Remote Memory: [wnl, ] [past events, as related history] Intelligence: [ average] [based on history, based on vocabulary, syntax, grammar , and content] Judgement: improved [per patient's behavior/history of present illness] Insight: improved [understanding severity of illness/history of present illness] Admitting Diagnosis: [Bipolar affective disorder severe unstable at the present time manic] Patient Strengths - taking medications Personal Skills: and stable housing Stable housing] Steady employment/financial stability: Retired Housing stability: [ and housing Motivation, determination, readiness for change: [Motivated to get better and leave] Patient Limitations: medication, non-compliance suggested to client to defer and accept treatment Estimated Length of Stay: [2days] [id number] time 15 minutes Objective - Vital Signs Vital signs: Vital Signs Temp 97.5 F L 06/21/18 06:38 Pulse 100 06/21/18 06:38 Resp 18 06/21/18 06:38 BP 118/83 06/21/18 06:38 Pulse Ox 96 06/20/18 02:10 - Labs CBC & Chem 7: 06/14/18 09:32 06/15/18 09:57
[2018-06-22] MEDS: LEVOTHYROXINE 88 MCG TAB PO SCH (06:44)
[2018-06-22 06:51] VITALS: BP 141/63; TEMP 97.9
[2018-06-22] MEDS: lamoTRIgine 100 MG TAB PO SCH (08:01)
[2018-06-22] MEDS: ZIPRASIDONE 80 MG CAP PO SCH (08:01)
[2018-06-22] MEDS: NIACIN TR 500 MG CAPSULE.ER PO SCH (08:01)
--- NOTE | 2018-06-22 11:40 | P.PN ---
Subjective Progress Note Date: 06/22/18 Principal diagnosis: Admitting Diagnosis: [Bipolar affective disorder severe unstable at the present time manic] Interval History: This 67 year old female alet and oriented to person, place and time. Meet court appointed patent attorney and deferred . She has increased her interaction on the unit is polite and appropriate going to groups. Mental Status Examination - General Appearance: casual, appears older than stated age Speech/Language: [She has normal speech and tangential and circumstantial and less pressured] Attitude/Behavior: cooperative, guarded, withdrawn, indifferent, other Mood: [euphoric, anxious, irritable] Affect: [ labile Orientation: [She is oriented to place and person but time] Thought Content: obsessions Risk Factors: [She is not suicidal homicidal but very bizarre behavior] Perception: wnl Thought Processes: clearing in nature Concentration/Attention Span: [wnl [Per observation and interview with the patient] Recent Memory: [ improving [ 3 out of 3 in 3 minutes] Remote Memory: [wnl, ] [past events, as related history] Intelligence: [ average] [based on history, based on vocabulary, syntax, grammar , and content] Judgement: improved [per patient's behavior/history of present illness] Insight: improved [understanding severity of illness/history of present illness] Admitting Diagnosis: [Bipolar affective disorder severe unstable at the present time manic, appearing :stable] Patient Strengths - taking medications Personal Skills: and stable housing Stable housing] Steady employment/financial stability: Retired Housing stability: [ and housing Motivation, determination, readiness for change: [Motivated to get better and leave] Patient Limitations: medication, non-compliance suggested to client to defer and accept treatment Estimated Length of Stay: [1 days] Zmaw-ur-[id number] time 15 minutes Objective - Vital Signs Vital signs: Vital Signs Temp 97.9 F 06/22/18 06:09 Pulse 100 06/22/18 06:09 Resp 18 06/22/18 06:09 BP 141/63 06/22/18 06:09 Pulse Ox 94 L 06/22/18 06:09 - Labs CBC & Chem 7: 06/14/18 09:32 06/15/18 09:57
[2018-06-22] MEDS: ASCORBIC ACID 500 MG TAB PO SCH (12:14)
[2018-06-22] MEDS: MULTIVITAMINS, THERA 1 EACH TAB PO SCH (12:14)
[2018-06-22] MEDS: VIT A,C & E-LUTEIN-MINERALS 1 EACH TAB PO SCH (12:14)
[2018-06-22] MEDS: LACTOBACILLUS ACIDOPH & BULGAR 1 EACH PACKET PO SCH (12:14)
[2018-06-22] MEDS: CHOLECALCIFEROL 1,000 UNIT TAB PO SCH (12:14)
[2018-06-22] MEDS: CALCIUM CARB-VIT D 500MG-200UN 1 EACH TAB PO SCH (12:15)
--- NOTE | 2018-06-22 13:31 | P.DS ---
Providers Date of admission: 06/14/18 13:42 Expected date of discharge: 06/22/18 Attending physician: Roger Martinez DO Consults: 06/14/18 15:36 Consult Physician Routine Consulting Provider: Xu Physician Consult Reason/Comments: H & P and medical care Do you want consulting provider notified?: Yes Primary care physician: Physician Nonstaff - Discharge Diagnosis(es) (1) Acute psychosis Current Visit: Yes Status: Acute Priority: Low (2) Manic behavior Current Visit: Yes Status: Acute Priority: Low Hospital Course: Identifying Information: [This a 67-year-old female who arrives chronic mental illness and came in for acute exacerbation of psychosis and garrett whereby an application and first clinical cert second clinical involuntary service were obtained for involuntary hospitalization] Chief Complaint and Reason for Hospitalization: [67-year-old female presents emergency department today with chief complaint of manic episode. She has a history of high blood disorder. She's been out of her medication for 4 days according to EMS. Patient arrives to emergency room with complaint of ideas. Unable to obtain significant history due to N coherent conversation. Patient talks about not use, agreed grass and oranges and peaches and watermelon. Patient denies any physical pain at this time. Patient has been admitted in the past for similar complaints.] Course of Treatment: [She was admitted involuntary and was able to take her medications and deferred on her treatment when a court-appointed workers compensation attorney came and she has normalized on her medications and has a more clear sensorium at the time of discharge.] The patient presents alert, pleasant, and cooperative. There calmly seated without any agitated behavior. She reports that [her] mood is good. Affect is congruent and euthymic. [She] deny having any suicidal or homicidal ideation intent or plan. [She] denies any auditory or visual hallucinations. There is no evidence of any delusional thought content. [Her] thought process is linear and goal-directed. [Her] speech is fluent and nonpressured. [Her] memory and concentration is grossly intact for the purposes of this session. Past Medical History Past Medical History: Thyroid Disorder, Vascular Disorder Additional Past Medical History / Comment(s): Other HX: R lung nodules-pt states noncancerous , slight kidney problems-lab tests alittle abnormal pt states due to previously having been on lithium, stable descending aortic aneurysm, cholelithiasis, hypothyroidism, varicosities R leg, constipation. BOWEL OBSTUCTION History of Any Multi-Drug Resistant Organisms: None Reported Past Surgical History: Adenoidectomy, Appendectomy, Bariatric Surgery, Ear Surgery, Tonsillectomy Additional Past Surgical History / Comment(s): 10-04-15 ADMITTED WITH CLINICAL IMPRESSION OF LT UPPER QUAD PAIN, INFECTION D/T GASTRIC BAND PROCEDURE. Lap band 2003 with a port replacement later, L ear cyst removal, colonoscopy-normal ,EXP LAP REDUCTION OF VENTRAL HERNIA,DECOMPRESSION OF BOWEL,DIVISION OF GASTRIC BAND CATHETER FREEING AREAD OF BOWEL THAT WAS STRANGULATED. Past Anesthesia/Blood Transfusion Reactions: No Reported Reaction Additional Past Anesthesia/Blood Transfusion Reaction / Comm: Pt has never recieved blood. Past Psychological History: Bipolar Smoking Status: Never smoker Past Alcohol Use History: Occasional Past Drug Use History: None Reported Physical/Medical Condition on Discharge:[ Stable] Functional Condition on Discharge: [At baseline with no auditory or visual hallucinations, no suicidal, or homicidal ideations with no garrett.] Discharge Medications: [Discharge medications a list below] Number of Routinely Scheduled Antipsychotic Medication(s) Prescribed: [Geodon is her only antipsychotic at the time of discharge] Appropriate Justification for discharging the Patient on Two or More Antipsychotic Medications: [No additional antipsychotics are required] Discharge Diagnosis: [bipolar affective disorder with acute psychosis and garrett which has resolved and is stable adherent to medications and doing well] Risk Factors: [Nonadherence to medical treatment plan] Recommendations/Follow-up/Aftercare: [She is to follow up with her psychiatrist and outpatient basis continued take her medications healthy lifestyle, including a hopeful plant-based diet may be healthier for her in the long run due to her comorbidity of medical and psychiatric disorders along with thyroid disorder and vascular disorder.] Pertinent Studies: 06/15/2018 significant lab values included carbon dioxide 21, creatinine 1.12, glucose 113, cholesterol 233, LDL 147, HDL 74, prolactin 71.2 which is expected with her taking chronic antipsychotics her [place] to level from 918 was 6.8 which is within therapeutic range for bipolar affective disorder and her urine drug screen was clean Patient Condition at Discharge: Stable Plan - Discharge Summary Discharge Rx Participant: No New Discharge Prescriptions: New Mag Hydrox/Al Hydrox/Simeth [Maalox] 30 ml PO Q4HR PRN cup PRN Reason: Gi Upset Continue Ascorbic Acid [Vitamin C] 500 mg PO DAILY Niacinamide [Niacin] 500 mg PO DAILY Calcium Carbonate/Vitamin D3 [Calcium 600-Vit D3 400 Tablet] 325 mg PO DAILY Cholecalciferol [Vitamin D3] 4,000 unit PO DAILY L.acidoph,Paracasei, B.lactis [Probiotic] 2 cap PO DAILY Kelp 150 mcg PO DAILY Magnesium Oxide [Mag-Ox] 500 mg PO Q48H lamoTRIgine [LaMICtal] 100 mg PO TID #21 tab Multivitamins, Thera [Multivitamin (formulary)] 1 tab PO DAILY #30 tab Levothyroxine Sodium [Synthroid] 88 mcg PO DAILY #14 tablet Lutein-Zeaxanthin 25mg-5mg 1 cap PO DAILY Ziprasidone [Geodon] 160 mg PO DAILY Vitamin B Complex 1 cap PO DAILY Discharge Medication List Ascorbic Acid [Vitamin C] 500 mg PO DAILY 12/06/15 [History] Calcium Carbonate/Vitamin D3 [Calcium 600-Vit D3 400 Tablet] 325 mg PO DAILY 08/12 [History] Niacinamide [Niacin] 500 mg PO DAILY 12/06/15 [History] Cholecalciferol [Vitamin D3] 4,000 unit PO DAILY 12/07/15 [History] Kelp 150 mcg PO DAILY 12/07/15 [History] L.acidoph,Paracasei, B.lactis [Probiotic] 2 cap PO DAILY 12/07/15 [History] Magnesium Oxide [Mag-Ox] 500 mg PO Q48H 12/07/15 [History] Levothyroxine Sodium [Synthroid] 88 mcg PO DAILY #14 tablet 01/01/16 [Rx] Multivitamins, Thera [Multivitamin (formulary)] 1 tab PO DAILY #30 tab 01/01/16 [Rx] lamoTRIgine [LaMICtal] 100 mg PO TID #21 tab 01/01/16 [Rx] Lutein-Zeaxanthin 25mg-5mg 1 cap PO DAILY 06/14/18 [History] Vitamin B Complex 1 cap PO DAILY 06/14/18 [History] Ziprasidone [Geodon] 160 mg PO DAILY 06/14/18 [History] Mag Hydrox/Al Hydrox/Simeth [Maalox] 30 ml PO Q4HR PRN cup 06/22/18 [Rx] Follow up Appointment(s)/Referral(s): Jazmin Sweeney [Other] - 06/28/18 11:15 am Nonstaff,Physician [Primary Care Provider] - 1-2 days Patient Instructions/Handouts: Mood Disorders (DC), Brief Psychotic Disorder ( DC) Activity/Diet/Wound Care/Special Instructions: activity and diet as tolerated. no guns or weapons in the home. no drugs or alcohol, take medications as prescribed by your physician. take all medications as prescribed. attend all follow up appointments as scheduled. return to the if symptoms worsen. Discharge Disposition: HOME SELF-CARE
== END 2018-06-22 15:00 | disposition home or self-care (01) | DRG 885 ==
LOC: EC 09:01 → 3MHU 13:42
PROVIDERS: ADMIT Psychiatry & Neurology Psychiatry; ATTEND Psychiatry & Neurology Psychiatry
DX: F31.2 Bipolar disorder, current episode manic severe with psychotic features (principal); E03.9 Hypothyroidism, unspecified; I71.9 Aortic aneurysm of unspecified site, without rupture; J45.909 Unspecified asthma, uncomplicated; Z91.19 Patient's noncompliance with other medical treatment and regimen; Z98.84 Bariatric surgery status; Z88.0 Allergy status to penicillin; Z88.8 Allergy status to other drugs, medicaments and biological substances; R91.8 Other nonspecific abnormal finding of lung field
CPT/HCPCS: 36415; 80048; 80053; 80061; 80175; 80306; 80320; 81001; 83036; 84146; 84443; 85025; 99285

== ENCOUNTER 2019-02-05 17:54 | Inpatient (IN) | payer MEDICARE ==
[2019-02-05 18:59] LABS: Basophils # (A) 0.1 k/uL (0-0.2); Basophils % (A) 1 %; Eosinophils # (A) 0.2 k/uL (0-0.7); Eosinophils % (A) 2 %; HCT 40.6 % (34.0-46.0); HGB 13.1 gm/dL (11.4-16.0); Lymphocytes # (A) 1.4 k/uL (1.0-4.8); Lymphocytes % (A) 19 %; MCH 28.6 pg (25.0-35.0); MCHC 32.3 g/dL (31.0-37.0); MCV 88.4 fL (80.0-100.0); Mean Platelet Volume 6.6; Monocytes # (A) 0.4 k/uL (0-1.0); Monocytes % (A) 6 %; Neutrophils # (A) 5.1 k/uL (1.3-7.7); Neutrophils % (A) 70 %; Platelet Count 288 k/uL (150-450); RDW 13.1 % (11.5-15.5); WBC 7.2 k/uL (3.8-10.6)
[2019-02-05 19:08] LABS: Partial Thromboplastin Time 26.5 sec (22.0-30.0); Prothrombin Time 10.2 sec (9.0-12.0)
[2019-02-05 19:10] LABS: ALT 25 U/L (9-52); AST 31 U/L (14-36); Acetaminophen <10.0 ug/mL; Albumin 4.6 g/dL (3.5-5.0); Alcohol <10 mg/dL; Alkaline Phosphatase 62 U/L (38-126); Anion Gap 11 mmol/L; Blood Urea Nitrogen 19 mg/dL (7-17); Calcium 10.7 mg/dL (8.4-10.2); Carbon Dioxide 25 mmol/L (22-30); Chloride 106 mmol/L (98-107); Creatine Kinase 102 U/L (30-135); Glucose 84 mg/dL (74-99); Potassium 4.1 mmol/L (3.5-5.1); Salicylate <1.0 mg/dL; Sodium 142 mmol/L (137-145); Total Bilirubin 0.6 mg/dL (0.2-1.3); Total Protein 7.3 g/dL (6.3-8.2)
--- NOTE | 2019-02-05 20:03 | CT ---
EXAMINATION TYPE: CT brain wo con DATE OF EXAM: 02/05/2019 COMPARISON: 12/25/2015 HISTORY: Manic event, pt hx bipolar. AMS/ eval for EPS CT DLP: 1106.4 mGycm Automated exposure control for dose reduction was used. FINDINGS: There is some cerebral cortical atrophy. There is mild enlargement of the ventricles. There is no mas s effect nor midline shift. There is no sign of intracranial hemorrhage. Calvarium is intact. IMPRESSION: CEREBRAL ATROPHY. NO ACUTE INTRACRANIAL ABNORMALITY. NO CHANGE.
[2019-02-05] MEDS ORDERED: ACETAMINOPHEN TAB 325 MG TAB PO PRN (22:20)
[2019-02-05] MEDS ORDERED: MAG HYDROX/AL HYDROX/SIMETH 30 ML CUP PO PRN (22:20)
[2019-02-05] MEDS ORDERED: MAGNESIUM HYDROXIDE 2,400 MG/10 ML CUP PO PRN (22:20)
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
[2019-02-06 07:02] LABS: Cholesterol 208 mg/dL (<200); HDL Cholesterol 71 mg/dL (40-60); LDL Cholesterol,Calculated 126 mg/dL (0-99); Triglycerides 53 mg/dL (<150)
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
[2019-02-06] MEDS: LEVOTHYROXINE 88 MCG TAB PO SCH (13:21)
[2019-02-06] MEDS: ZIPRASIDONE 40 MG CAP PO SCH ×2 (13:21→20:41)
[2019-02-06 15:56] LABS: Hemoglobin A1C 5.7 % (4.0-6.0)
[2019-02-06] MEDS: lamoTRIgine 100 MG TAB PO SCH ×2 (16:11→20:41)
[2019-02-06] MEDS: MAGNESIUM OXIDE 400 MG TAB PO SCH (16:11)
--- NOTE | 2019-02-06 21:59 | CONS ---
CONSULTATION REASON FOR CONSULTATION: Advice regarding hypothyroidism and multiple medical issues requested by Dr. Rowland. HISTORY OF PRESENT ILLNESS: This 68-year-old woman with a past history of hypothyroidism, history of lung nodules, history of bowel resection, appendectomy, history of bariatric surgery being followed by Dr. He in the outpatient setting. The patient also has history of dementia. The patient apparently become manic and uncontrollable at home. The patient was taken to [facility] and admitted for psychiatric evaluation. The patient is noncompliant with medications also. Currently, the patient is only able to give a sketchy history. Patient does not have chest pain, palpitation, headache, loss of consciousness, seizures, nausea and vomiting, diarrhea. Most of the history was taken from my discussed with staff as well as review of chart. PAST MEDICAL HISTORY: History of hypothyroidism, history of lung nodules, history of kidney problems, history of hernia surgery. Bowel obstruction. MEDICATIONS ARE: Home medications are reviewed and include: 1. Magnesium oxide 500 mg Q 42 hours. 2. Lamictal 100 mg p.o. t.i.d. 3. Geodon 160 mg p.o. b.i.d. 4. Vitamin B complex 1 p.o. b.i.d. 5. Niacin 500 mg p.o. daily. 6. Multivitamins one p.o. daily. 7. Lutein, zeaxanthin 1 capsule p.o. daily. 8. Synthroid 18 mcg p.o. daily. 9. Probiotic 1 p.o. daily. 10.Vitamin D3 4000 units daily. 11.Calcium with vitamin D. 12.Vitamin C 500 mg p.o. daily. ALLERGIES: FOSAMAX, AMOXICILLIN, ROBITUSSIN AND BONIVA. Family history, social history and review of systems could not be taken, the patient is confused. PHYSICAL EXAM: Patient is conscious, confused. Pulse 71, blood pressure 134/80, respiration 18, temperature 98.2. Pulse ox 100 percent on room air. HEENT: Conjunctivae normal. Oral mucosa moist. NECK: No jugular venous distention. No carotid bruit. No lymph node enlargement. CARDIOVASCULAR: S1, S2 muffled. No S3, no S4. RESPIRATORY: Breath sounds diminished in the bases. No rhonchi. No crackles. ABDOMEN: Soft, nontender. No mass palpable. LEGS: No edema. No swelling. CENTRAL NERVOUS SYSTEM: Higher functions as mentioned earlier. Moves all four extremities. No focal deficits. LYMPHATICS: No lymph nodes palpable in the neck, axillae or groin. SKIN: No ulcer, rash or bleeding. JOINTS: No active deforming arthropathy. LABS: CBC within normal limits. Creatinine is 1.11 and cholesterol is 208, LDL is 126. ASSESSMENT: 1. Bipolar, possible psychosis, manic phase. 2. Increased creatinine with some chronic kidney disease stage 2 in the baseline. 3. Hyperlipidemia. 4. Hypothyroidism. 5. History of lung nodules. 6. History of stable descending aortic aneurysm. 7. History of cholelithiasis. 8. History of varicosities. 9. History of bowel obstruction and bowel resection. 10.History of bariatric surgery, lap band and port replacements. 11.History of bipolar. RECOMMENDATIONS AND DISCUSSION: In this 68-year-old woman who presented with multiple complex medical issues, we will monitor the patient closely. Continue the current medications, management and symptomatic treatment. I recommend adequate hydration. Repeat labs in the morning. Otherwise repeat BUN, creatinine, as an outpatient. Otherwise, the patient also had hyperlipidemia. I would also recommend outpatient evaluation and possible initiation of antihyperlipidemic medications also. Otherwise, we will follow the patient closely with you and hopefully the patient's complaints will increase and I would also recommend social work consult for evaluation of the home situation as well. Apparently the is dispensing the medications to her. Otherwise, a copy of dictation is being forwarded to Dr. He who is the primary physician. Thank you, Dr. Rowland, for letting us participate in the care of your patient. MMODL / IJN: [id number] /
[2019-02-07] MEDS: LEVOTHYROXINE 88 MCG TAB PO SCH (05:51)
[2019-02-07] MEDS: ASCORBIC ACID 500 MG TAB PO SCH (09:04)
[2019-02-07] MEDS: ZIPRASIDONE 40 MG CAP PO SCH ×2 (09:04→21:53)
[2019-02-07] MEDS: MULTIVITAMINS, THERA 1 EACH TAB PO SCH (09:04)
[2019-02-07] MEDS: lamoTRIgine 100 MG TAB PO SCH ×3 (09:04→21:53)
--- NOTE | 2019-02-07 11:07 | P.PN ---
Progress Note - Text Interval history: The patient is found in her room. Staff report that she has been isolating in her room. With much prompting they were able to get her to eat some food this morning. I was told that she did not eat yesterday. It is reported she slept 6 hours last night. She states she wants to stay in her room and be left alone. Repeatedly she states "I miss my mother and daughter". Mental status exam: The patient is an alert overweight female appearing her stated age. She is dressed in hospital gowns. Eye contact is infrequent. She maintains a flat affect. She describes a mood that is "the same" and provides no other detail. She continues to spontaneously make statements that are unrelated to the attempted conversation. She demonstrates some psychomotor slowing. Insight and judgment are impaired. She is reporting no thoughts of harming herself or others. She is endorsing no auditory hallucinations but she is an unreliable historian. Plan: The patient will continue on her current psychotropic medications. Staff will continue encouraging her to eat and to ambulate. She requires continued psychiatric hospitalization due to her level of dysfunction. Vital signs reviewed they're within normal limits. We will continue to monitor her for safety.
[2019-02-08] MEDS: LEVOTHYROXINE 88 MCG TAB PO SCH (06:19)
[2019-02-08] MEDS: lamoTRIgine 100 MG TAB PO SCH ×3 (09:11→20:48)
[2019-02-08] MEDS: ZIPRASIDONE 40 MG CAP PO SCH (09:11)
[2019-02-08] MEDS: ASCORBIC ACID 500 MG TAB PO SCH (09:11)
--- NOTE | 2019-02-08 10:08 | P.PN ---
Progress Note - Text Interval history: The patient is found in her room. She was opening and closing her door numerous times standing at the door naked. Female nursing staff assisted with getting the patient dressed in gowns and the patient was brought to the library to speak. The patient stood at a table for 1-2 minutes touching it with her index finger stating she is covering up a hole. She reports her mood is fine. She states that she slept well. She states she has not been eating. She does have some spontaneous speech that's is bizarre and unrelated to our conversation. Mental status exam: With staff assistance she is dressed in hospital gowns. Eye contact is intermittent. She maintains a flat affect. She demonstrates bizarre behavior. In addition to the above-noted behavior she is seated in the chair and began moving her head from side to side and then up and down for 1-2 minutes. She endorses racing thoughts. She demonstrates objective evidence of psychosis. Insight and judgment are poor. She is reporting no thoughts of harming herself or others. She is reporting no auditory or visual hallucinations but appears she is responding to those. She demonstrates no verbal or physical aggressiveness. She is not oriented. She states that she is 38 years old and was born in 2000. She states that the day of the week is in itially Wednesday and then Wednesday. Plan: The patient will continue on the Lamictal her Geodon will be titrated back to the 80 mg twice daily. We will monitor her for safety. Reality orientation is provided when possible. Vital signs reviewed. We will monitor her by mouth intake and medication compliance. We will continue to involve family in treatment and discharge planning. She requires continued psychiatric hospitalization.
[2019-02-08] MEDS: MULTIVITAMINS, THERA 1 EACH TAB PO SCH ×2 (11:33→11:38)
[2019-02-08] MEDS: MAGNESIUM OXIDE 400 MG TAB PO SCH (15:32)
[2019-02-08] MEDS: LORazepam 1 MG TAB PO PRN (15:32)
[2019-02-08] MEDS: ZIPRASIDONE 20 MG VIAL IM PRN (15:55)
[2019-02-08] MEDS: ZIPRASIDONE 80 MG CAP PO SCH (20:47)
[2019-02-09] MEDS: LEVOTHYROXINE 88 MCG TAB PO SCH (06:23)
[2019-02-09] MEDS: ZIPRASIDONE 20 MG VIAL IM PRN (06:55)
[2019-02-09] MEDS: ASCORBIC ACID 500 MG TAB PO SCH (08:57)
[2019-02-09] MEDS: lamoTRIgine 100 MG TAB PO SCH ×3 (08:57→21:27)
[2019-02-09] MEDS: LORazepam 1 MG TAB PO PRN ×2 (08:58→16:26)
[2019-02-09] MEDS: ZIPRASIDONE 80 MG CAP PO SCH ×2 (09:02→21:27)
[2019-02-09 09:50] VITALS: BMI 29.2
--- NOTE | 2019-02-09 10:44 | P.PN ---
Progress Note - Text Interval history: The patient is found in the hallway she slowly follows me to the library to speak. Per staff the patient has been demonstrating bizarre behavior. She has been intrusive with others personal space. She has been selectively eating. She is observed ambulating in the hallway without purpose. In the library she chooses to sit on the table rather than a chair. She repeats numerous times "I lied". Later she makes several self-deprecating statements. She did receive a Geodon injection earlier this morning. I did have the opportunity to speak with the patient's outpatient psychiatrist. We we discussed the patient's current status and medication options. Obviously there is concern about her remaining compliant with them. She has not yet been tried on Abilify or invega both of which have injectable forms. Her outpatient psychiatrist was interested in having her on lithium however the patient's creatinine is elevated so we will defer that option. Mental status exam: The patient is alert she has a disheveled appearance hygiene grooming impaired she is dressed in hospital gowns. She seems to ambulate in the hallway without purpose. She demonstrates disorganization of thought. Overall she appears manic and is demonstrating symptoms of psychosis. Insight and judgment are poor. She requires redirection on the unit. She demonstrates no verbal or physical aggressiveness. Affect is labile she may become loud she will demonstrate tearfulness. Plan: The patient will continue on her current medications. We are researching her insurance coverage to see if Abilify maintena would be covered if we get the medication started here in the mental health unit. We will continue to monitor her for safety. Reality orientation is provide when possible. Vital signs reviewed.
[2019-02-09] MEDS: MULTIVITAMINS, THERA 1 EACH TAB PO SCH (13:15)
[2019-02-10] MEDS: LEVOTHYROXINE 88 MCG TAB PO SCH (06:28)
[2019-02-10] MEDS: ZIPRASIDONE 80 MG CAP PO SCH ×3 (09:03→20:39)
[2019-02-10] MEDS: ASCORBIC ACID 500 MG TAB PO SCH (09:04)
[2019-02-10] MEDS: lamoTRIgine 100 MG TAB PO SCH ×4 (09:04→20:39)
--- NOTE | 2019-02-10 09:57 | P.PN ---
Progress Note - Text Interval history: The patient is found in the hallway she follows me to an interview room. She spontaneously apologizes for behavior yesterday and states "I hope I didn't do anything wrong". She states that she could not tell reality from her dreams. She indicates she thought I was somebody from [place]. She states that she feels much less confused. She reports she slept 6 hours last night staff report she slept 7. She indicates she ate breakfast this morning. We reviewed her psychotropic medication. She provides conflicting reports as to her compliance with medications prior to this admission. Initially she states she was taking it as prescribed and then later states that she had been missing several doses. Mental status exam: The patient is alert she has a disheveled appearance she is dressed in hospital gowns. She seated calmly in the chair she maintains appropriate eye contact. Affect is more appropriately expresses. She states her mood is better. She reports having some confusion still but it is improved. She endorses no suicidal or homicidal ideation intent or plan. She is endorsing no auditory hallucinations but states "I'm still talking to myself". There is still some residual paranoid thinking. Insight and judgment improved compared to yesterday. She demonstrates no verbal or physical aggressiveness. She does demonstrate some circumstantial thinking but during our interaction no tangential thinking. Plan: The patient will continue on her current psychotropic medications. We are investigating whether or not she can afford to be placed on a Depo form of an antipsychotic. We will monitor her for safety. Encourage full participation in the milieu. Reality orientation is provided. Vital signs reviewed.
[2019-02-10] MEDS: MULTIVITAMINS, THERA 1 EACH TAB PO SCH (12:49)
[2019-02-10] MEDS: MAGNESIUM OXIDE 400 MG TAB PO SCH (16:39)
[2019-02-10] MEDS ORDERED: LORazepam 2 MG/ML INJ IM STA (22:53)
[2019-02-11] MEDS ORDERED: HALOPERIDOL LACTATE 5 MG/ML 1 ML VIAL IM ONE (00:42)
[2019-02-11] MEDS: LEVOTHYROXINE 88 MCG TAB PO SCH (06:42)
[2019-02-11] MEDS: ASCORBIC ACID 500 MG TAB PO SCH (07:55)
[2019-02-11] MEDS: lamoTRIgine 100 MG TAB PO SCH ×3 (07:56→20:45)
[2019-02-11] MEDS: ZIPRASIDONE 40 MG CAP PO SCH ×2 (07:56→17:13)
--- NOTE | 2019-02-11 10:01 | P.PN ---
Progress Note - Text Interval history: The patient is found in the hallway she follows me to the library to speak. She indicates she feels confused. She asks me several times if I am in fact Dr. Iqbal. She makes several bizarre statements. She demonstrates disorganization of thought. Staff report that the patient was confused and agitated throughout the night. She required to injections for her bizarre psychotic behavior. Mental status exam: The patient is ambulating in the hallway without purpose. She is dressed in hospital gowns she has a disheveled appearance. She conveys a sense of paranoia. She repeatedly asked me to verify my identity. She is reporting no suicidal or homicidal thoughts. She may be responding to internal stimuli as she tends to verbalize dialogue during interview that is unrelated to our conversation. She didn't traits no verbal or physical aggressiveness. She was directable. Insight and judgment are impaired. She demonstrates no involuntary repetitive movements. Plan: I have reduced the Geodon to 40 mg twice daily as I plan to discontinue that medication and tapered fashion. We will initiate Abilify 10 mg daily and we will titrate that medication as clinically appropriate. We did verify that the Abilify maintena will be affordable as an outpatient. Again I have discussed this with her outpatient psychiatrist who was agreeable. We will monitor the patient for safety encourage participation in the milieu. Reality orientation is provided.
[2019-02-11] MEDS: ARIPiprazole 10 MG TAB PO SCH (11:38)
[2019-02-11] MEDS: MULTIVITAMINS, THERA 1 EACH TAB PO SCH (11:38)
[2019-02-11] MEDS ORDERED: HALOPERIDOL LACTATE 5 MG/ML 1 ML VIAL IM STA (14:43)
[2019-02-11] MEDS ORDERED: LORazepam 2 MG/ML INJ IM STA (14:44)
[2019-02-11] MEDS: LORazepam 1 MG TAB PO PRN (17:13)
[2019-02-11] MEDS ORDERED: HALOPERIDOL LACTATE 5 MG/ML 1 ML VIAL IM PRN (20:37)
[2019-02-11] MEDS ORDERED: LORazepam 2 MG/ML INJ IM PRN (20:38)
[2019-02-12] MEDS: LEVOTHYROXINE 88 MCG TAB PO SCH (06:49)
[2019-02-12] MEDS: ARIPiprazole 10 MG TAB PO SCH (08:41)
[2019-02-12] MEDS: ZIPRASIDONE 40 MG CAP PO SCH ×2 (08:41→18:36)
[2019-02-12] MEDS: lamoTRIgine 100 MG TAB PO SCH ×3 (08:41→20:37)
[2019-02-12] MEDS: ASCORBIC ACID 500 MG TAB PO SCH (08:41)
--- NOTE | 2019-02-12 10:01 | P.PN ---
Progress Note - Text Interval history: The patient is found in the hallway she follows me to an interview room. She states that her mood is okay this morning. She states she feels better that her brought up some of her pajamas. Nursing staff called several times last evening that she was demonstrating acute confusion and psychosis requiring when necessary medication. Again we reviewed the plan of cross tapering her off of Geodon onto Abilify. The patient is agreeable. Mental status exam: The patient is a female appearing her stated age. She is dressed in her own pajamas. She ambulates without difficulty. Eye contact is appropriate speech is fluent and spontaneous nonpressured. Affect is constricted. She reports no thoughts of harming herself or others. She does demonstrate disorganization of thought although she seems to do better in the morning compared to evening hours. She does continued to verbalize some parano id and persecutory thinking. She does continue to demonstrate signs of garrett. Insight and judgment are impaired. Plan: The patient will continue on her current psychotropic medications we will titrate the Abilify to 15 mg daily. We plan to discontinue the Geodon soon. If the Abilify demonstrate efficacy we will transition her to Abilify maintena. She requires continued psychiatric hospitalization. Vital signs reviewed. We will provide reality orientation when possible.
[2019-02-12] MEDS: MULTIVITAMINS, THERA 1 EACH TAB PO SCH (12:17)
[2019-02-12] MEDS: MAGNESIUM OXIDE 400 MG TAB PO SCH (16:42)
[2019-02-13] MEDS: LEVOTHYROXINE 88 MCG TAB PO SCH (06:01)
[2019-02-13] MEDS: lamoTRIgine 100 MG TAB PO SCH ×3 (08:36→20:59)
[2019-02-13] MEDS: ZIPRASIDONE 40 MG CAP PO SCH (08:36)
[2019-02-13] MEDS: ARIPiprazole 15 MG TAB PO SCH (08:36)
[2019-02-13] MEDS: ASCORBIC ACID 500 MG TAB PO SCH (08:37)
--- NOTE | 2019-02-13 09:32 | P.PN ---
Progress Note - Text Interval history: The patient is found in group she follows me to an interview room. She reports her mood is better. She states she feels less confused. She reports she had some difficulty sleeping last night staff recorded she slept 5 hours. She indicates she breakfast this morning. She reports having a visit from her last evening that went well alert she's focused on the fact that they need to communicate and compromised better. He states they need to agree on how the finances and chores will be handled at home. Again she asks about her psychotropic medications and I explained the plan of cross tapering off of Geodon onto Abilify. Mental status exam: The patient is alert she is dressed in her own clothing hygiene grooming adequate. Speech is spontaneous fluent she is verbose but not pressured. I did need to interrupt her to ask another question but that was easily accomplished. She reports her mood is improved. Affect is bright. She reports no suicidal or homicidal thoughts she is endorsing no auditory or visual hallucinations. She reports feeling safe in the hospital. Thought process still demonstrate some disorganization. There are times when she can be linear but she does spontaneously demonstrate tangential thinking and loose associations still. Insight and judgment limited. Overall she continues to demonstrate a fluctuating affect and fluctuating behavior day to day. Plan: The patient will continue on Abilify 15 mg daily the dosage has just been increased. We will titrate further as clinically appropriate. Geodon will be discontinued. Continue Lamictal as written. Vital signs reviewed they're within normal limits. We will monitor her by mouth intake. She requires contin ued psychiatric hospitalization and we will continue monitoring her for safety.
[2019-02-13] MEDS: MULTIVITAMINS, THERA 1 EACH TAB PO SCH (12:01)
[2019-02-14] MEDS: LEVOTHYROXINE 88 MCG TAB PO SCH (05:39)
[2019-02-14 06:23] LABS: Amphetamine Screen,Urine Not Detected (NotDetected); Barbiturate Screen,Urine Not Detected (NotDetected); Benzodiazepines Screen,Urine Not Detected (NotDetected); Cocaine Screen,Urine Not Detected (NotDetected); Methadone Screen, Urine Not Detected (NotDetected); Opiate Screen,Urine Not Detected (NotDetected); Oxycodone Screen, Urine Not Detected (NotDetected); Phencyclidine Screen,Urine Not Detected (NotDetected); Tricyclic Antidepressant,Urine Not Detected (NotDetected); Urn Cannabinoid Scrn Not Detected (NotDetected)
[2019-02-14 06:34] LABS: Appearance,Urine Clear (Clear); Bilirubin,Urine Negative (Negative); Blood,Urine Negative (Negative); Color,Urine Light Yellow; Glucose,Urine (UA) Negative (Negative); Ketones,Urine Negative (Negative); Leukocyte Esterase,Urine Negative (Negative); Nitrite,Urine Negative (Negative); Protein,Urine Negative (Negative); Specific Gravity,Urine 1.008 (1.001-1.035); Urobilinogen,Urine <2.0 mg/dL (<2.0)
[2019-02-14] MEDS: ASCORBIC ACID 500 MG TAB PO SCH (09:06)
[2019-02-14] MEDS: ARIPiprazole 15 MG TAB PO SCH (09:06)
[2019-02-14] MEDS: lamoTRIgine 100 MG TAB PO SCH ×3 (09:06→21:48)
--- NOTE | 2019-02-14 09:09 | P.PN ---
Progress Note - Text Interval history: The patient is found at the manager front office she follows me to an interview room. She indicates her mood is still confused at times she states she wants to be discharged home but doesn't feel that she is ready. She asked several questions regarding her psychotropic medications and those questions were addressed. She reports that she slept last night. She reports that she is eating. She states that she attempts to go to groups but doesn't feel comfortable talking in them. Mental status exam: The patient is alert she is cooperative and pleasant. She remained seated in the chair during the interview. She is dressed in her own clothing which is a different outfit from yesterday. Eye contact is appropriate affect is constricted. She reports that she feels confused at times. She demonstrates some perseveration some disorganization of thought. She denies having any suicidal or homicidal thoughts. She denies having any auditory or visual hallucinations and reports she feels safe. She may continue to harbor some delusional thought however. Insight and judgment are limited. She demonstrates no verbal or physical aggressiveness. Plan: The patient will continue on her current psychotropic medications we will plan to titrate the Abilify to 20 mg tomorrow. She seems to be slowly improving but has not yet reached her baseline function. Vital signs reviewed. She is encouraged to participate in the milieu we will monitor her for safety.
[2019-02-14] MEDS: MULTIVITAMINS, THERA 1 EACH TAB PO SCH (12:50)
[2019-02-14] MEDS: MAGNESIUM OXIDE 400 MG TAB PO SCH (16:33)
[2019-02-15] MEDS: LEVOTHYROXINE 88 MCG TAB PO SCH (06:15)
[2019-02-15 06:48] VITALS: RESP 16
[2019-02-15] MEDS ORDERED: ARIPiprazole IM 400 MG VIAL (NO COST) IM ONE (08:56)
[2019-02-15] MEDS: ASCORBIC ACID 500 MG TAB PO SCH (08:57)
[2019-02-15] MEDS: lamoTRIgine 100 MG TAB PO SCH ×3 (08:58→20:43)
--- NOTE | 2019-02-15 09:01 | P.PN ---
Progress Note - Text Interval history: The patient is found in the hallway she follows me to an interview room. She reports that her mood is better. She reports that she slept last night staff reported she slept 6 hours. She indicates appetite is stable. She has several questions regarding her medications and those questions were addressed. We discussed discharge planning. She was excited at the prospect. We discussed initiating the Abilify maintena today and she is agreeable. She did meet with her assistant city attorney yesterday and signed a deferral agreement. Mental status exam: The patient is alert she presents with adequate hygiene grooming she is dressed in her own clothing and is wearing different clothing than yesterday. Eye contact is appropriate speech is fluent spontaneous nonpressured. She reports her mood is good. Affect is congruent. Thought process is becoming more linear. She is reporting no thoughts of harming herself or others. She endorses no auditory or visual hallucinations or any specific delusions. Insight and judgment improving. She demonstrates no verbal or physical aggressiveness. She does have some noted tremor of her left upper extremity this morning. Plan: The patient will be started on Abilify maintena today 300 mg. She will continue on the oral dose of Abilify temporarily. Continue Lamictal as written. She anticipates her will visit this evening. We will discuss a possible discharge for tomorrow. We will continue to monitor her for safety and encourage full participation in the milieu. Vital signs reviewed.
[2019-02-15] MEDS: MULTIVITAMINS, THERA 1 EACH TAB PO SCH (12:03)
[2019-02-16] MEDS: LEVOTHYROXINE 88 MCG TAB PO SCH (06:28)
[2019-02-16 07:14] VITALS: BP 129/77; PULSE 75; TEMP 97.8
[2019-02-16] MEDS: ASCORBIC ACID 500 MG TAB PO SCH (08:59)
[2019-02-16] MEDS: lamoTRIgine 100 MG TAB PO SCH (08:59)
--- NOTE | 2019-02-16 08:59 | P.DS ---
Providers Date of admission: 02/05/19 22:17 Expected date of discharge: 02/16/19 Attending physician: Tristin Iqbal Consults: 02/05/19 22:20 Consult Physician Routine Consulting Provider: Addie Miguel Consult Reason/Comments: medical management Do you want consulting provider notified?: Yes, Notify in am Primary care physician: Yeison He - Discharge Diagnosis(es) (1) Severe manic bipolar 1 disorder with psychotic behavior Current Visit: Yes Status: Acute Priority: High Hospital Course: Brief summary of admission note: This patient is a 68-year-old female who was admitted to the mental health unit with acute symptoms of garrett and psychosis. The patient was petition to the hospital indicating she was suicidal and was demonstrating paranoid and aggressive behavior. Upon presentation the patient was disorganized she appeared psychotic she required much redirection. For full details please refer to my psychiatric evaluation dated 02/06/2019. Summary of hospital course: The patient was admitted to the hospital involuntarily. A second clinical certificate was completed. She initially was unable to defer at her deferral conference and a court hearing was scheduled. However over the course of the hospitalization she did clear and she was able to appropriate participate in a deferral conference and ultimately deferred the court hearing. She was restarted on her Geodon and Lamictal as it was assumed she had been noncompliant with them. After speaking with her outpatient psychiatrist and verifying that she would be able to afford Abilify maintena we decided to cross taper off of Geodon and onto Abilify. She demonstrated significant improvement in terms of symptoms of garrett and psychosis while on the mental health unit. She did receive her first injection of Abilify maintena 300 mg yesterday. Her has been in contact with the patient and has visited. He has indicated that the patient has made significant improvement. The patient will be purchase a painting in a support meeting involving her and social work this morning prior to discharge. The patient was seen by internal medicine for routine history and physical exam. At this time the patient demonstrates a much more organized thought process she is reporting no psychosis she is attending to her activities of daily living appropriately. Mental status exam: The patient is a female appearing her stated age. She stressor own clothing hygiene grooming are adequate. Speech is fluent spontaneous nonpressured. She reports her mood is much better. Affect is euthymic. She is reporting no suicidal or homicidal ideation intent or plan. She is endorsing no auditory or visual hallucinations or any specific delusions. At this time there is no observed evidence of psychosis. She demonstrates no tangential thinking loose associations or flight of ideas. She can be circumstantial at times. She demonstrates no verbal or physical aggressiveness. She demonstrates no involuntary repetitive movements. She is oriented to person place and date. She spontaneously describes future oriented thoughts. Impressions 1. Bipolar 1 disorder manic with psychosis Plan: The patient will be discharged mental health unit today to return home residing with her . She will continue following up with her outpatient psychiatrist. She will continue on Lamictal 100 mg 3 times daily, Abilify 20 mg daily for the next 13 days then discontinue. She received her first injection of Abilify maintena yesterday of 300 mg. She will be due for her next injection 03/16/2019. We did verify with her pharmacy that the Abilify maintena would be affordable with her insurance coverage. At this time the patient is at no imminent safety risk and she is appropriate for transition back to outpatient care. She is instructed to return to the hospital with any acute safety concerns. She will follow-up with her primary care physician as scheduled. Patient Condition at Discharge: Stable Plan - Discharge Summary Discharge Rx Participant: No New Discharge Prescriptions: New ARIPiprazole [Abilify] 20 mg PO DAILY #12 tab ARIPiprazole [Abilify Maintena] 300 mg IM QMONTH #1 vial Continue Ascorbic Acid [Vitamin C] 500 mg PO DAILY Niacinamide [Niacin] 500 mg PO DAILY Calcium Carbonate/Vitamin D3 [Calcium 600-Vit D3 400 Tablet] 325 mg PO DAILY Cholecalciferol [Vitamin D3 (25 Mcg = 1000 Iu)] 4,000 unit PO DAILY L.acidoph,Paracasei, B.lactis [Probiotic] 2 cap PO DAILY Magnesium Oxide [Mag-Ox] 500 mg PO Q48H Multivitamins, Thera [Multivitamin (formulary)] 1 tab PO DAILY #30 tab Levothyroxine Sodium [Synthroid] 88 mcg PO DAILY #14 tablet Lutein-Zeaxanthin 25mg-5mg 1 cap PO DAILY Vitamin B Complex 1 cap PO DAILY lamoTRIgine [LaMICtal] 100 mg PO TID #45 tab Discontinued Ziprasidone [Geodon] 160 mg PO BID Discharge Medication List Ascorbic Acid [Vitamin C] 500 mg PO DAILY 12/06/15 [History] Calcium Carbonate/Vitamin D3 [Calcium 600-Vit D3 400 Tablet] 325 mg PO DAILY 12/06/15 [History] Niacinamide [Niacin] 500 mg PO DAILY 12/06/15 [History] Cholecalciferol [Vitamin D3 (25 Mcg = 1000 Iu)] 4,000 unit PO DAILY 12/07/15 [History] L.acidoph,Paracasei, B.lactis [Probiotic] 2 cap PO DAILY 12/07/15 [History] Magnesium Oxide [Mag-Ox] 500 mg PO Q48H 12/07/15 [History] Levothyroxine Sodium [Synthroid] 88 mcg PO DAILY #14 tablet 01/01/16 [Rx] Multivitamins, Thera [Multivitamin (formulary)] 1 tab PO DAILY #30 tab 01/01/16 [Rx] Lutein-Zeaxanthin 25mg-5mg 1 cap PO DAILY 06/14/18 [History] Vitamin B Complex 1 cap PO DAILY 06/14/18 [History] ARIPiprazole [Abilify Maintena] 300 mg IM QMONTH #1 vial 02/16/19 [Rx] ARIPiprazole [Abilify] 20 mg PO DAILY #12 tab 02/16/19 [Rx] lamoTRIgine [LaMICtal] 100 mg PO TID #45 tab 02/16/19 [Rx] Follow up Appointment(s)/Referral(s): Jazmin Sweeney [Other] - 1 Week Yeison He DO [Primary Care Provider] - 1 Week Patient Instructions/Handouts: Mood Disorders (DC), Bipolar Disorder (DC), Psychotic Disorder (DC) Activity/Diet/Wound Care/Special Instructions: Activity and diet as tolerated. No guns or weapons in the home. Take all medications as prescribed and attend all follow up appointments as scheduled. Refrain from alcohol and street drugs not prescribed by your physician. If in need of of medication refills, please go to your primary care physician or to your outpatient psychiatric provider. If in crisis please call , or go to the nearest .
== END 2019-02-16 12:23 | disposition home health service (06) | DRG 885 ==
LOC: EC 17:54 → 3MHU 22:17
PROVIDERS: ADMIT Psychiatry & Neurology Psychiatry; ATTEND Psychiatry & Neurology Psychiatry
DX: F31.2 Bipolar disorder, current episode manic severe with psychotic features (principal); E03.9 Hypothyroidism, unspecified; E78.5 Hyperlipidemia, unspecified; F03.90 Unspecified dementia, unspecified severity, without behavioral disturbance, psychotic disturbance, mood disturbance, and anxiety; J45.909 Unspecified asthma, uncomplicated; N18.2 Chronic kidney disease, stage 2 (mild); Y04.0XXA Assault by unarmed brawl or fight, initial encounter; Z79.890 Hormone replacement therapy; Z79.899 Other long term (current) drug therapy; Z90.49 Acquired absence of other specified parts of digestive tract; Z98.84 Bariatric surgery status; T43.596A Underdosing of other antipsychotics and neuroleptics, initial encounter; Z91.128 Patient's intentional underdosing of medication regimen for other reason; I71.4 Abdominal aortic aneurysm, without rupture; R91.8 Other nonspecific abnormal finding of lung field; Z88.1 Allergy status to other antibiotic agents; Z88.8 Allergy status to other drugs, medicaments and biological substances
CPT/HCPCS: 36415; 70450; 80053; 80061; 80306; 80320; 80329; 81003; 82140; 82550; 83036; 83520; 84443; 85025; 85610; 85730; 93005; 99285

== ENCOUNTER → 2019-03-13 | Outpatient (CLI) | payer MEDICARE ==
--- NOTE | 2019-03-13 16:14 | XR ---
Right hand HISTORY: Pain and swelling 3 views of the right hand There is hypertrophic change of the subchondral sclerosis and joint space loss at the carpal metacarp al joint first digit. Small ossific densities are present within the soft tissues. Bone mineralizatio n overall is somewhat decreased. Hypertrophic changes are also present at the distal interphalangeal joints of the second and third digits, there is some flexion deformity. IMPRESSION: Osteoarthritis.
== END | disposition home or self-care (01) ==
LOC: RADXRYALE 15:14
PROVIDERS: ATTEND Physician Assistant Medical
DX: M79.641 Pain in right hand (principal); M19.041 Primary osteoarthritis, right hand

== ENCOUNTER 2019-08-23 22:29 | Inpatient (IN) | payer MEDICARE ==
--- NOTE | 2019-08-23 23:37 | ED ---
Psych HPI - General Stated Complaint: Mental Health Time Seen by Provider: 08/23/19 22:32 Source: patient, EMS Mode of arrival: EMS Limitations: no limitations - History of Present Illness Initial Comments: This patient is 68-year-old woman who is sent to have evaluation for suspected garrett. Patient reportedly has history of previous episodes of garrett, occurring approximately once year. Per the patient's she had stopped taking her medications and then had not been acting appropriately. Reportedly not sleeping. When I discuss with the patient, she denies complaints. She states that she believes she is here because she has not been listening to her 's orders. Patient denies suicidal or homicidal ideation. MD Complaint: other -: days(s) Associated Psychiatric Symptoms: racing thoughts History of same: Yes - Related Data Home Medications Medication Instructions Recorded Confirmed L.acidoph,Paracasei, B.lactis 1 cap PO BID 12/07/15 08/23/19 [Probiotic] Lutein-Zeaxanthin 25mg-5mg 1 cap PO DAILY 06/14/18 08/23/19 Vitamin B Complex 1 cap PO DAILY 06/14/18 08/23/19 ARIPiprazole [Abilify Maintena] 300 mg IM Q28D 08/23/19 08/23/19 Calcium Citrate 500 mg PO BID 08/23/19 08/23/19 Cholecalciferol (Vitamin D3) 2,000 unit PO BID 08/23/19 08/23/19 [Vitamin D3] Kelp 150mcg 150 mcg PO DAILY 08/23/19 08/23/19 Magnesium Oxide [Wood] 500 mg PO DAILY 08/23/19 08/23/19 Turmeric Root Extract [Turmeric] 500 mg PO DAILY 08/23/19 08/23/19 Previous Rx's Medication Instructions Recorded Levothyroxine Sodium [Synthroid] 88 mcg PO DAILY #14 tablet 01/01/16 Multivitamins, Thera [Multivitamin 1 tab PO DAILY #30 tab 01/01/16 (formulary)] lamoTRIgine [LaMICtal] 100 mg PO TID #45 tab 02/16/19 Allergies Allergy/AdvReac Type Severity Reaction Status Date / Time alendronate sodium Allergy Rash/Hives Verified 08/23/19 23:48 [From Fosamax] amoxicillin Allergy Rash/Hives Verified 08/23/19 23:48 guaifenesin [From Robitussin] Allergy Rash/Hives Verified 08/23/19 23:48 ibandronate sodium Allergy Rash/Hives Verified 08/23/19 23:48 [From Boniva] Review of Systems ROS Statement: Those systems with pertinent positive or pertinent negative responses have been documented in the HPI. ROS Other: All systems not noted in ROS Statement are negative. Constitutional: Denies: fever Respiratory: Denies: cough, dyspnea Cardiovascular: Denies: chest pain, palpitations Gastrointestinal: Denies: abdominal pain, vomiting, diarrhea Genitourinary: Denies: dysuria, hematuria Musculoskeletal: Denies: back pain Skin: Denies: rash Neurological: Denies: headache Psychiatric: Denies: anxiety, depression, homicidal thoughts, suicidal thoughts Past Medical History Past Medical History: Thyroid Disorder, Vascular Disorder Additional Past Medical History / Comment(s): Other HX: R lung nodules-pt states noncancerous , slight kidney problems-lab tests a little abnormal pt states due to previously having been on lithium, previously charted stable descending aortic aneurysm- pt denies this, cholelithiasis, hypothyroidism, varicosities R leg, constipation. past BOWEL OBSTUCTION, wears a bite guard at night History of Any Multi-Drug Resistant Organisms: None Reported Past Surgical History: Adenoidectomy, Appendectomy, Bariatric Surgery, Ear Surgery, Tonsillectomy Additional Past Surgical History / Comment(s): Lap band 2004 with a port replacement 2011 ,then in 2016- lap band port/lap band removed , L ear cyst removal, colonoscopy-normal,EXP LAP REDUCTION OF VENTRAL HERNIA,DECOMPRESSION OF BOWEL,DIVISION OF GASTRIC BAND CATHETER FREEING OF BOWEL THAT WAS STRANGULATED. Past Anesthesia/Blood Transfusion Reactions: No Reported Reaction Additional Past Anesthesia/Blood Transfusion Reaction / Comment(s): Pt has never recieved blood. Past Psychological History: Bipolar Smoking Status: Never smoker Past Alcohol Use History: Occasional Past Drug Use History: None Reported - Past Family History Father Additional Family Medical History / Comment(s): Father of ruptured aortic aneurysm at age 76yrs. Mother Additional Family Medical History / Comment(s): Mother had an abdominal aneurysm. She in her sleep at age 78yrs. General Exam General appearance: alert, in no apparent distress Head exam: Present: atraumatic, normocephalic Eye exam: Present: normal appearance. Absent: scleral icterus, conjunctival injection ENT exam: Present: normal oropharynx Respiratory exam: Present: normal lung sounds bilaterally. Absent: respiratory distress, wheezes, rales, rhonchi, stridor Cardiovascular Exam: Present: regular rate, normal rhythm, normal heart sounds. Absent: systolic murmur, diastolic murmur, rubs, gallop GI/Abdominal exam: Present: soft. Absent: tenderness, guarding, rebound Extremities exam: Present: normal inspection, normal capillary refill. Absent: pedal edema Neurological exam: Present: alert Psychiatric exam: Present: normal affect, normal mood. Absent: agitated, anxious, homicidal ideation, suicidal ideation Skin exam: Present: warm, dry, intact, normal color. Absent: rash Course Vital Signs 08/23/19 22:51 Temperature 98.2 F Pulse Rate 85 Respiratory 18 Rate Blood Pressure 135/92 O2 Sat by Pulse 97 Oximetry Medical Decision Making - Lab Data Result diagrams: 08/24/19 01:40 08/24/19 01:40 Lab Results 08/24/19 08/24/19 Range/Units 01:40 01:40 WBC 11.3 H (3.8-10.6) k/uL RBC 4.37 (3.80-5.40) m/uL Hgb 12.5 (11.4-16.0) gm/dL Hct 38.4 (34.0-46.0) % MCV 87.8 (80.0-100.0) fL MCH 28.7 (25.0-35.0) pg MCHC 32.7 (31.0-37.0) g/dL RDW 12.6 (11.5-15.5) % Plt Count 300 (150-450) k/uL Neutrophils % 76 % Lymphocytes % 13 % Monocytes % 6 % Eosinophils % 3 % Basophils % 0 % Neutrophils # 8.5 H (1.3-7.7) k/uL Lymphocytes # 1.4 (1.0-4.8) k/uL Monocytes # 0.7 (0-1.0) k/uL Eosinophils # 0.4 (0-0.7) k/uL Basophils # 0.0 (0-0.2) k/uL Sodium 138 (137-145) mmol/L Potassium 4.2 (3.5-5.1) mmol/L Chloride 105 (98-107) mmol/L Carbon Dioxide 23 (22-30) mmol/L Anion Gap 10 mmol/L BUN 29 H (7-17) mg/dL Creatinine 1.05 H (0.52-1.04) mg/dL Est GFR (CKD-EPI)AfAm 62 (>60 ml/min/1.73 sqM) Est GFR (CKD-EPI)NonAf 54 (>60 ml/min/1.73 sqM) Glucose 85 (74-99) mg/dL Calcium 10.5 H (8.4-10.2) mg/dL Disposition Clinical Impression: Manic behavior Disposition: ADMITTED IP TO THIS HOSP Condition: Fair Is patient prescribed a controlled substance at d/c from ED?: No Referrals: Yeison He DO [Primary Care Provider] - 1-2 days
[2019-08-24 01:50] LABS: Basophils % (A) 0 %; Eosinophils # (A) 0.4 k/uL (0-0.7); Eosinophils % (A) 3 %; HCT 38.4 % (34.0-46.0); HGB 12.5 gm/dL (11.4-16.0); Lymphocytes # (A) 1.4 k/uL (1.0-4.8); Lymphocytes % (A) 13 %; MCH 28.7 pg (25.0-35.0); MCHC 32.7 g/dL (31.0-37.0); MCV 87.8 fL (80.0-100.0); Mean Platelet Volume 5.9; Monocytes # (A) 0.7 k/uL (0-1.0); Monocytes % (A) 6 %; Neutrophils # (A) 8.5 k/uL (1.3-7.7); Neutrophils % (A) 76 %; Platelet Count 300 k/uL (150-450); RBC 4.37 m/uL (3.80-5.40); RDW 12.6 % (11.5-15.5); WBC 11.3 k/uL (3.8-10.6)
[2019-08-24 02:00] LABS: Calcium 10.5 mg/dL (8.4-10.2); Potassium 4.2 mmol/L (3.5-5.1)
[2019-08-24] MEDS ORDERED: SODIUM CHLORIDE 0.9% 1,000 ML IV ONE (02:39)
[2019-08-24] MEDS ORDERED: MAG HYDROX/AL HYDROX/SIMETH 30 ML CUP PO PRN (03:20)
[2019-08-24] MEDS ORDERED: LORazepam 1 MG TAB PO PRN (03:20)
[2019-08-24] MEDS ORDERED: ACETAMINOPHEN TAB 325 MG TAB PO PRN (03:20)
[2019-08-24] MEDS ORDERED: LORazepam 2 MG/ML INJ IM PRN (03:24)
[2019-08-24] MEDS ORDERED: ZIPRASIDONE 20 MG VIAL IM PRN (06:00)
[2019-08-24] MEDS: LEVOTHYROXINE 88 MCG TAB PO SCH (06:36)
[2019-08-24] MEDS: MAGNESIUM OXIDE 400 MG TAB PO SCH (09:08)
[2019-08-24] MEDS: MULTIVITAMINS, THERA 1 EACH TAB PO SCH (09:08)
[2019-08-24] MEDS: CHOLECALCIFEROL 1,000 UNIT TAB PO SCH ×2 (09:08→22:06)
[2019-08-24] MEDS: LACTOBACILLUS ACIDOPH & BULGAR 1 EACH PACKET PO SCH ×2 (09:08→21:06)
[2019-08-24 09:30] LABS: Albumin 4.5 g/dL (3.5-5.0); Bilirubin, Delta 0.3 mg/dL (0.0-0.2); Bilirubin,Unconjugated 0.5 mg/dL (0.0-1.1); Calcium 10.4 mg/dL (8.4-10.2); Potassium 4.4 mmol/L (3.5-5.1); Total Bilirubin 0.8 mg/dL (0.2-1.3); Total Protein 7.4 g/dL (6.3-8.2)
[2019-08-24] MEDS: lamoTRIgine 25 MG TAB PO SCH ×2 (13:06→21:05)
--- NOTE | 2019-08-24 13:13 | P.HP ---
Psychiatric H&P - . H&P Date: 08/24/19 History & Physical: Allergies Allergy/AdvReac Type Severity Reaction Status Date / Time alendronate sodium Allergy Rash/Hives Verified 08/23/19 23:48 From Fosamax amoxicillin Allergy Rash/Hives Verified 08/23/19 23:48 guaifenesin From Robitussin Allergy Rash/Hives Verified 08/23/19 23:48 ibandronate sodium Allergy Rash/Hives Verified 08/23/19 23:48 From Boniva Vital Signs Temp 97.8 F 08/24/19 04:20 Pulse 87 08/24/19 04:20 Resp 20 08/24/19 04:20 BP 141/70 08/24/19 04:20 Pulse Ox 97 08/23/19 22:51 Intake & Output 08/23/19 08/24/19 08/24/19 18:59 06:59 18:59 Weight 87.543 kg 87.54 kg Laboratory Last Values WBC 11.3 k/uL (3.8-10.6) H 08/24/19 01:40 RBC 4.37 m/uL (3.80-5.40) 08/24/19 01:40 Hgb 12.5 gm/dL (11.4-16.0) 08/24/19 01:40 Hct 38.4 % (34.0-46.0) 08/24/19 01:40 MCV 87.8 fL (80.0-100.0) 08/24/19 01:40 MCH 28.7 pg (25.0-35.0) 08/24/19 01:40 MCHC 32.7 g/dL (31.0-37.0) 08/24/19 01:40 RDW 12.6 % (11.5-15.5) 08/24/19 01:40 Plt Count 300 k/uL (150-450) 08/24/19 01:40 Neutrophils % 76 % 08/24/19 01:40 Lymphocytes % 13 % 08/24/19 01:40 Monocytes % 6 % 08/24/19 01:40 Eosinophils % 3 % 08/24/19 01:40 Basophils % 0 % 08/24/19 01:40 Neutrophils # 8.5 k/uL (1.3-7.7) H 08/24/19 01:40 Lymphocytes # 1.4 k/uL (1.0-4.8) 08/24/19 01:40 Monocytes # 0.7 k/uL (0-1.0) 08/24/19 01:40 Eosinophils # 0.4 k/uL (0-0.7) 08/24/19 01:40 Basophils # 0.0 k/uL (0-0.2) 08/24/19 01:40 Sodium 141 mmol/L (137-145) 08/24/19 08:30 Potassium 4.4 mmol/L (3.5-5.1) 08/24/19 08:30 Chloride 105 mmol/L (98-107) 08/24/19 08:30 Carbon Dioxide 24 mmol/L (22-30) 08/24/19 08:30 Anion Gap 12 mmol/L 08/24/19 08:30 BUN 25 mg/dL (7-17) H 08/24/19 08:30 Creatinine 0.91 mg/dL (0.52-1.04) 08/24/19 08:30 Est GFR (CKD-EPI)AfAm 74 (>60 ml/min/1.73 sqM) 08/24/19 08:30 Est GFR (CKD-EPI)NonAf 64 (>60 ml/min/1.73 sqM) 08/24/19 08:30 Glucose 90 mg/dL (74-99) 08/24/19 08:30 Calcium 10.4 mg/dL (8.4-10.2) H 08/24/19 08:30 Total Bilirubin 0.8 mg/dL (0.2-1.3) 08/24/19 08:30 Conjugated Bilirubin 0.0 mg/dL (0.0-0.3) 08/24/19 08:30 Unconjugated Bilirubin 0.5 mg/dL (0.0-1.1) 08/24/19 08:30 Delta Bilirubin 0.3 mg/dL (0.0-0.2) H 08/24/19 08:30 AST 55 U/L (14-36) H 08/24/19 08:30 ALT 34 U/L (9-52) 08/24/19 08:30 Alkaline Phosphatase 63 U/L (38-126) 08/24/19 08:30 Total Protein 7.4 g/dL (6.3-8.2) 08/24/19 08:30 Albumin 4.5 g/dL (3.5-5.0) 08/24/19 08:30 Triglycerides 75 mg/dL (<150) 08/24/19 08:30 Cholesterol 201 mg/dL (<200) H 08/24/19 08:30 LDL Cholesterol, Calc 101 mg/dL (0-99) H 08/24/19 08:30 HDL Cholesterol 85 mg/dL (40-60) H 08/24/19 08:30 TSH 4.050 mIU/L (0.465-4.680) 08/24/19 01:40 08/24/19 13:01 IDENTIFYING DATA: Patient is a 68-year-old female who currently lives with her in a house has a history of bipolar disorder and has 1 daughter. HPI: Patient presented to the hospital yesterday with complaints of being aggressive with her and not taking her medications at home. As per ER note, claims that patient was not sleeping and being agitated. Patient was admitted to the [facility] on petition and certification. Patient was agreeable to be seen by mortgage loan underwriter today and was somewhat directable however. To be confused during the conversation and was responding to internal stimuli looking around the room. Patient was disorganized at times and her thought content and process. Patient admitted to "yelling at my " and states that she was under financial stress due to the bills for the house. She states that she is having difficulty cleaning and maintaining the house. She states that she has been borrowing money from different sources and finding it difficult to pay them back. When asked about what she's been spending money on she claimed that her has been buying things and she has as well however did not want to much detail. Patient spoke about her medications and states that she was feeling well and stopped taking her Lamictal and claims that she feels guilty about it. She states that she has been getting her Abilify Maintenna long-acting injection 300 mg every month and states that she recently contacted dose on August 16 at her primary care physician's office. She states that her mood has been labile denies any depression at this time. She admitted to having auditory hallucinations stating "accusing voices". She admits to poor sleep and poor appetite. Patient has multiple delusions about guilt.Patient denies any suicidal or homicidal ideations intent or plan. At this time patient denies any visual hallucinations. Patient denies using any illicit substances at this time. She denies any alcohol or cigarettes. PAST PSYCHIATRIC HISTORY: Patient states that she has a history of bipolar disorder which was diagnosed in 1990. She has had several admissions to the [facility] [place] unit and last admitted on 01/2019. She was restricted recently switched onto Lamictal 100 mg 3 times a day and Abilify GORDILLO 300 mg monthly. She states that she follows up with her psychiatrist Dr. Carolina in [place] and receives her long-acting injection from her primary care physician. She admits to having 2 suicide attempts in the past. PMH: Thyroid disorder, vascular disorder, OA ALLERGIES: as per EMR CHEMICAL DEPENDENCY HISTORY: as per HPI FAMILY PSYCHIATRIC/SUBSTANCE USE HISTORY: denies SOCIAL HISTORY: She states that she was born and raised in [place] and moved to [place] afterwards. She claims that she attended some college however did not finish. 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 At this time patient is and lives in a house has 1 daughter. MENTAL STATUS EXAM: General Appearance: Patient appears to be stated age is alert, and attempts to cooperate however appears to be confused and gazing around the room. Marginal hygiene and grooming. Poor eye contact. Behavior: Patient is calmly seated without any agitated behavior. Speech: Patient's speech is fluent and nonpressured. Hesitant. Mood/Affect: Patient reports their mood is depressed, affect is congruent and constricted. Suicidality/Homicidality: Patient denies having any suicidal or homicidal ideation intent or plan. Perceptions: Admits to auditory hallucinations. Though content/process: There is no evidence of any delusional thought content and thought process is linear and goal-directed. Some paranoia and delusional thinking. Memory and concentration: AOX3, grossly intact for the purposes of this session. Can spell "WORLD" backwards Judgment and insight: poor STRENGTHS/WEAKNESSES: strength is that patient has supportive , weaknesses that patient has chronic mental illness. INTELLECT: average IMPRESSIONS: Bipolar disorder, currently in manic episode with psychotic features PLAN: -Patient is admitted under involuntary status to [facility] for stabilization of psychiatric symptoms and safety. Patient declined signing the adult voluntary form and declined signing medication consent form. Certification was completed by mortgage loan underwriter to go along with other certification and petition and will be filed for court today. -Medications : Will start patient on Lamictal 50 mg twice a day for mood stabilization. We'll also start patient on Abilify 2.5 mg daily for mood stabilization/psychosis. Melatonin 3 mg daily at bedtime for sleep. BuSpar 7.5 mg twice a day when necessary for anxiety. -Will attempt to contact primary care doctor's office to confirm patient's Abilify Maintenna dose and last time given. -Geodon PRN for agitation/aggression -Patient was informed of the risks, benefits and side effects of the medication and patient verbally consented to taking the medications however refused to sign medication consent form. -NRT -need to his patient does not smoke. -TOM on board for discharge planning 08/24/19 13:07
--- NOTE | 2019-08-24 15:06 | XR ---
EXAMINATION TYPE: XR chest 1V portable DATE OF EXAM: 08/24/2019 CLINICAL HISTORY: Difficulty breathing, possible pneumonia. TECHNIQUE: Single AP portable upright view of the chest is obtained. COMPARISON: Chest x-ray from August 13, 2015 FINDINGS: There is some chronic parenchymal change without suspicious new focal airspace opacity, pl eural effusion, or pneumothorax is seen bilaterally. Cardiac silhouette size is upper limits of ajcki l with atherosclerotic aorta. Osseous structures are intact. IMPRESSION: No suspicious acute pulmonary infiltrate.
[2019-08-24] MEDS: LEVOFLOXACIN 500 MG TAB PO SCH (15:41)
[2019-08-24] MEDS ORDERED: MELATONIN 3 MG TABLET PO SCH (21:00)
[2019-08-24] MEDS: ALBUTEROL INHALER 60 PUFF/8 GM INHALER INHALATION SCH (21:28)
--- NOTE | 2019-08-25 01:38 | CONS ---
CONSULTATION DATE OF SERVICE: 08/24/2019 REASON FOR CONSULTATION: Advice regarding cough and other multiple medical issues, requested by Psychiatry. HISTORY OF PRESENT ILLNESS: This 68-year-old woman with a past medical history of bipolar psychosis, history of hyperlipidemia, hypothyroidism, history of lung nodules, history of stable descending aortic aneurysm, history of cholelithiasis, history of varicosities, history of bowel obstruction, bowel resection, history of bariatric surgery, lap band and port replacements, history of bipolar being followed by Dr. He in the outpatient setting was admitted to the hospital for psychiatric evaluation for possible garrett. There is no history of any fever, rigors or chills. No history of headache, loss of consciousness or seizures. Patient has got slow speech at this time. The patient is complaining of cough. The patient is unable to give further details regarding the cough at this time. Some sputum is noted. There is no history of fever, rigors or chills. No history of headache, loss of consciousness, seizures. PAST MEDICAL HISTORY: History of hypothyroidism, history of lung nodule, history of adenoidectomy, bariatric surgery, lap band, bipolar, extensive psychiatric history. MEDICATIONS: Home medications are: 1. Lamictal 100 mg p.o. t.i.d. 2. Vitamin B complex 1 p.o. daily. 3. Turmeric 500 mcg p.o. daily. 4. Multivitamins one p.o. daily. 5. Magnesium oxide 500 mg p.o. daily. 6. Lutein 1 capsule p.o. daily. 7. Synthroid 88 mcg p.o. daily. 8. Lactobacillus acidophilus probiotic 1 capsule p.o. b.i.d. 9. Kelp 150 mcg p.o. daily. 10.Vitamin D3 2000 p.o. b.i.d. 11.Calcium acetate 500 mg p.o. b.i.d. 12.Abilify 300 mg IM Q 05/16/2028 days. ALLERGIES: FOSAMAX, AMOXICILLIN, ROBITUSSIN. FAMILY HISTORY: History of ruptured aortic aneurysm at the age of [age] years old. SOCIAL HISTORY: No history of smoking. No alcohol intake. REVIEW OF SYSTEMS: ENT: Diminished vision. Diminished hearing. CARDIOVASCULAR: No angina. RESPIRATION: As mentioned earlier. Gastrointestinal: As mentioned earlier. no dysuria or hematuria. NERVOUS SYSTEM: No numbness or weakness. ALLERGY/IMMUNOLOGY: No asthma or hayfever. MUSCULOSKELETAL as mentioned earlier. HEMATOLOGY/ONCOLOGY: No history of anemia. ENDOCRINE: Hypothyroidism. CONSTITUTIONAL: As mentioned earlier. DERMATOLOGY: Negative. RHEUMATOLOGY negative. PSYCHIATRY as mentioned earlier. PHYSICAL EXAMINATION: Alert and oriented times three. Pulse 87, blood pressure 141/70, respiration 20, temperature 97.8, pulse ox 97% on room air. HEENT: Conjunctivae normal. Oral mucosa moist. Neck is no jugular venous distention. No carotid bruit. No lymph node enlargement. Cardiovascular systems: S1, S2. Respiration: Breath sounds diminished in the bases. A few rhonchi. No crackles. ABDOMEN: Soft, nontender. No mass palpable. LEGS: No edema. No swelling. NERVOUS SYSTEM: Higher functions as mentioned earlier. Moves all four limbs. Mild diffuse weakness. DERMATOLOGY: Negative. Rheumatology: Negative. Psychiatry: As mentioned earlier. Lymphatics: No lymph nodes palpable in the neck, axillae or groin. JOINTS: No active deforming arthropathy. LABS: WBC 11.3. Creatinine is 1.05. AST, ALT, noted. AST is 55 and LDL is 101. Cholesterol is 201. ASSESSMENT: 1. Acute bipolar manual for evaluation. 2. Possible acute bronchitis, present on admission, rule out pneumonia. 3. Increased creatinine with possibly chronic kidney disease stage 2. 4. Hypertension. 5. Hyperlipidemia. 6. Hypothyroidism. 7. History of lung nodules. 8. History of stable descending aortic aneurysm. 9. History of cholelithiasis. 10.History of varicosities. 11.History of bowel obstruction and bowel resection. 12.History of bariatric surgery lap band and port replacements. RECOMMENDATIONS AND DISCISSION: In this 68-year-old woman who presented with multiple medical problems. I would recommend to continue the current medications, management and treatment recommend a course of antibiotics and a chest x-ray to rule out the possibility of pneumonia resume the home medications. We will follow the patient closely with you. The patient may be asked to follow up with primary physician closely in the outpatient setting. Thank you for letting us participate in the care of this patient. Patient may be asked to follow up with Dr. He closely after discharge regarding the followup of the above mentioned multiple medical issues. Nervous system: High functions as mentioned earlier. Cranial nerves 2nd thru 12 grossly intact. No signs of cerebellar dysfunction. Moves all 4 limbs. Reflexes are normal. Power is normal. The tone is slightly increased. MMODL / IJN: [id number] /
[2019-08-25] MEDS: LEVOTHYROXINE 88 MCG TAB PO SCH (06:48)
[2019-08-25] MEDS: ALBUTEROL INHALER 60 PUFF/8 GM INHALER INHALATION SCH ×3 (08:58→20:59)
[2019-08-25] MEDS: MAGNESIUM OXIDE 400 MG TAB PO SCH (08:59)
[2019-08-25] MEDS: CHOLECALCIFEROL 1,000 UNIT TAB PO SCH ×2 (08:59→21:01)
[2019-08-25] MEDS: MULTIVITAMINS, THERA 1 EACH TAB PO SCH (08:59)
[2019-08-25] MEDS: LACTOBACILLUS ACIDOPH & BULGAR 1 EACH PACKET PO SCH ×2 (09:00→20:59)
[2019-08-25] MEDS ORDERED: ARIPiprazole 5 MG TAB PO SCH (09:00)
[2019-08-25] MEDS: lamoTRIgine 25 MG TAB PO SCH ×2 (09:00→21:01)
[2019-08-25] MEDS ORDERED: ARIPiprazole 5 MG TAB PO ONE (09:15)
--- NOTE | 2019-08-25 09:16 | P.PN ---
Progress Note - Text Progress Note Date: 08/25/19 Interval History: Patient was seen lying down in her bed and acknowledged story writer however was hes itant and appeared to be confused getting out of bed. Patient was however directable and agreeable to be seen in the office. Patient continues to appear to be responding to internal stimuli and looking around the room at times. Patient was hesitant when answering questions however answered most appropriately. Patient offered no overnight complaints however did state that it was difficult initially for her to go to sleep. Patient did not endorse going to groups yesterday. She claims that she is taking her medications however didn't know which ones. She claims that her mood is "fine" and denies any anxiety at this time. She did state that her came yesterday to visit her. At this time patient denies any suicidal or homical ideations, intent or plan. Patient continues to claim that she hears voices stating that they're calling her name "Radha". Patient denies any side effects from the medications and has been compliant with meds. Mental Status Exam: General Appearance: Patient appears to be stated age is alert, and attempts to cooperate, responding to internal stimuli. Marginal hygiene and grooming. Behavior: Patient is calmly seated without any agitated behavior. Speech: Patient's speech is fluent and nonpressured. Hesitant. Mood/Affect: Patient reports their mood is "fine", affect is congruent and constricted. Suicidality/Homicidality: Patient denies having any suicidal or homicidal ideation intent or plan. Perceptions: Admits to auditory hallucinations. Though content/process: There is no evidence of any delusional thought content and thought process is linear and goal-directed. Some delusional thinking. Memory and concentration: AOX2, appears somewhat confused this morning with poor attention. Judgment and insight: poor Assessment Bipolar disorder, currently in manic episode with psychotic features r/o delirium unknown etiology. Plan: -Patient is admitted under involuntary status to [facility]HU for stabilization of psychiatric symptoms and safety. Patient declined signing the adult voluntary form and declined signing medication consent form. Certification was completed by story writer and was filed with the court yesterday, awaiting referral and court date. -Medications : Will continue with Lamictal 50 mg twice a day for mood stabilization. We'll increase Abilify 5 mg daily for mood stabilization/psychosis. Increased Melatonin 5 mg daily at bedtime for sleep. BuSpar 7.5 mg twice a day when necessary for anxiety. -Will attempt to contact primary care doctor's office to confirm patient's Abilify Maintenna dose and last time given. -Geodon PRN for agitation/aggression -Reordered urine analysis and urine drug screen, Will await results. -Mildly elevated WBC count on initial labs. Vitals appear stable. -NRT -need to his patient does not smoke. -SW on board for discharge planning
[2019-08-25 11:07] LABS: Hemoglobin A1C 5.7 % (4.0-6.0)
[2019-08-25 12:38] LABS: Appearance,Urine Clear (Clear); Bilirubin,Urine Negative (Negative); Blood,Urine Negative (Negative); Color,Urine Light Yellow; Glucose,Urine (UA) Negative (Negative); Ketones,Urine 1+ (Negative); Leukocyte Esterase,Urine Negative (Negative); Nitrite,Urine Negative (Negative); PH, Urine 5.5 (5.0-8.0); Protein,Urine Negative (Negative); Specific Gravity,Urine 1.004 (1.001-1.035); Urobilinogen,Urine <2.0 mg/dL (<2.0)
[2019-08-25] MEDS: LEVOFLOXACIN 500 MG TAB PO SCH (14:25)
[2019-08-25 18:54] LABS: Urine Alcohol Negative (Negative); Urine Barbiturate Negative (Negative); Urine Cocaine Negative (Negative); Urine Methadone Negative (Negative); Urine Opiates Negative (Negative); Urine Phencyclidine Negative (Negative)
[2019-08-25] MEDS: MELATONIN 5 MG TABLET PO SCH (21:01)
[2019-08-26] MEDS: MAGNESIUM OXIDE 400 MG TAB PO SCH (08:34)
[2019-08-26] MEDS: ALBUTEROL INHALER 60 PUFF/8 GM INHALER INHALATION SCH ×3 (08:34→22:27)
[2019-08-26] MEDS: ARIPiprazole 5 MG TAB PO SCH (08:34)
[2019-08-26] MEDS: LEVOTHYROXINE 88 MCG TAB PO SCH (08:34)
[2019-08-26] MEDS: CHOLECALCIFEROL 1,000 UNIT TAB PO SCH ×2 (08:35→20:36)
[2019-08-26] MEDS: LACTOBACILLUS ACIDOPH & BULGAR 1 EACH PACKET PO SCH ×2 (08:35→20:38)
[2019-08-26] MEDS: MULTIVITAMINS, THERA 1 EACH TAB PO SCH (08:35)
[2019-08-26] MEDS: lamoTRIgine 25 MG TAB PO SCH ×2 (08:35→19:41)
[2019-08-26 08:46] LABS: Calcium 10.5 mg/dL (8.4-10.2); Potassium 4.5 mmol/L (3.5-5.1)
--- NOTE | 2019-08-26 12:41 | P.PN ---
Progress Note - Text Progress Note Date: 08/26/19 This is a psychiatric progress note as cross coverage for Dr. Goss Chief complaint:Confused and bizarre speech. Subjective: The patient has been seen today as follow-up, chart reviewed, case discussed with the treatment team. Patient denies any sleep or appetite problems. The patient is compliant with her medications and denies any adverse reactions as per nursing report. Patient presented confused was bizarre thoughts and speech. She was doing about she gained 149 pounds since yesterday and she was very tangential with bizarre speech. Patient was not oriented to time or situation and she wasn't responding to questions by spelling letters without any meaning. patient seems responding to internal stimuli but was redirectable with no violent or aggressive behavior. Objective: Vitals has been reviewed. Mental Status Exam: General Appearance: Patient appears to be stated age is alert, and attempts to cooperate, responding to internal stimuli. Marginal hygiene and grooming. Behavior: Patient is calmly seated without any agitated behavior. Speech: Patient's speech is fluent and non-pressured. Mood/Affect: Patient couldn't report her mood and she does nor look anxious or sad Suicidality/Homicidality: No report of suicidal or homicidal ideation intent or plan. Perceptions: Patient didn't answer question about hallucinations, but she presents internally preoccupied and responding to internal stimuli. Though content/process: No delusions could be elicited. Thought process was impoverished. Orientation: Patient was not oriented to time or place Judgment and insight: poor Assessment: Bipolar disorder, currently in manic episode with psychotic features r/o delirium unknown etiology. Plan: Continue inpatient level of care due to continued to present with mood instability and psychotic symptoms. Patient could not take care of herself and needs further stabilization on medications. Continue treatment of bipolar disorder. Precautions: Continue 15 minutes check for safety. Consider medical consultation if any acute medical issues arise. Provide the patient individual, group therapy, substance use disorder counseling to give better insight and learn coping skills. Medications: Continue Lamictal 50 mg twice daily for mood stabilization. Continue Abilify 5 mg daily for mood stabilization/psychosis. Collateral information about when was the last time she received Abilify maintaina Discharge patient to OUTPATIENT services upon a stabilization
[2019-08-26] MEDS: MAGNESIUM HYDROXIDE 2,400 MG/10 ML CUP PO PRN (13:40)
[2019-08-26] MEDS: LEVOFLOXACIN 500 MG TAB PO SCH (15:13)
[2019-08-26] MEDS: busPIRone HCl 5 MG TAB PO PRN (19:41)
[2019-08-26] MEDS: MELATONIN 5 MG TABLET PO SCH ×2 (20:36→22:09)
[2019-08-27] MEDS: LEVOTHYROXINE 88 MCG TAB PO SCH (06:20)
[2019-08-27] MEDS: LACTOBACILLUS ACIDOPH & BULGAR 1 EACH PACKET PO SCH ×2 (08:44→21:32)
[2019-08-27] MEDS: ALBUTEROL INHALER 60 PUFF/8 GM INHALER INHALATION SCH ×3 (08:44→21:32)
[2019-08-27] MEDS: MULTIVITAMINS, THERA 1 EACH TAB PO SCH (08:44)
[2019-08-27] MEDS: MAGNESIUM OXIDE 400 MG TAB PO SCH (08:44)
[2019-08-27] MEDS: ARIPiprazole 5 MG TAB PO SCH (08:44)
[2019-08-27] MEDS: CHOLECALCIFEROL 1,000 UNIT TAB PO SCH ×3 (08:44→21:55)
[2019-08-27] MEDS: lamoTRIgine 25 MG TAB PO SCH ×2 (08:44→21:32)
--- NOTE | 2019-08-27 10:15 | P.PN ---
Progress Note - Text Progress Note Date: 08/27/19 This is a psychiatric progress note as cross coverage for Dr. Goss Chief complaint:Confused and bizarre speech. Subjective: The patient has been seen today as follow-up, chart reviewed, case discussed with the treatment team. Patient presents very confused and not able to give any reliable/informative history. The patient was seen in her bed was one-to-one in the room and she was talking to herself and moving her hands in a bizarre way as she is talking to nonexisting person. According to the nursing staff last night the patient became more confused after evening and she spit out her medications, and was talking nonsense with very bizarre behavior. No aggressive or threatening behaviors reported or noticed. Reportedly patient has very poor sleep last night. Today, the patient was completely nonsensical was very bizarre speech. As per nursing report, the family reported patient usually takes 2-3 days to achieve mental stability after reestablishing her medications. No report when was the last time she received Abilify maintain. Objective: Vitals has been reviewed. Mental Status Exam: General Appearance: Patient appears to be stated age is alert, and attempts to cooperate, responding to internal stimuli. Marginal hygiene and grooming. Behavior: Patient is lying in her bed without any agitated behavior, but continuously talking to herself. Speech: Patient's speech is fluent, spontaneous, nonsensical. Mood/Affect: Patient couldn't report her mood but presented irritable Suicidality/Homicidality: No report of suicidal or homicidal ideation intent or plan. Perceptions: Patient presents internally preoccupied and responding to internal stimuli. Though content/process: Thought process was impoverished, and a nonsensical. Orientation: Patient was not oriented to time or place Judgment and insight: poor Assessment: Bipolar disorder, currently in manic episode with psychotic features r/o delirium unknown etiology. Plan: Continue inpatient level of care due to continued to present with mood instability and psychotic symptoms. Patient could not take care of herself and needs further stabilization on medications. Continue treatment of bipolar disorder. Precautions: Continue 15 minutes check for safety. Consider medical consultation if any acute medical issues arise. Provide the patient individual, group therapy, substance use disorder counseling to give better insight and learn coping skills. Medications: Continue Lamictal 50 mg twice daily for mood stabilization. Increase Abilify 7 mg daily for mood stabilization/psychosis. Collateral information about when was the last time she received Abilify maintaina Discharge patient to OUTPATIENT services upon a stabilization
[2019-08-27] MEDS: ARIPiprazole 2 MG TAB PO SCH (10:55)
[2019-08-27] MEDS: LEVOFLOXACIN 500 MG TAB PO SCH (15:07)
[2019-08-27] MEDS ORDERED: HALOPERIDOL 2 MG TAB PO PRN (15:39)
[2019-08-27] MEDS: HALOPERIDOL LACTATE 5 MG/ML 1 ML VIAL IM PRN (15:57)
[2019-08-27] MEDS: MELATONIN 5 MG TABLET PO SCH (21:32)
[2019-08-28] MEDS: LEVOTHYROXINE 88 MCG TAB PO SCH (06:27)
[2019-08-28 08:05] LABS: Basophils # (A) 0.1 k/uL (0-0.2); Basophils % (A) 1 %; Eosinophils # (A) 0.3 k/uL (0-0.7); Eosinophils % (A) 4 %; HCT 42.2 % (34.0-46.0); HGB 13.4 gm/dL (11.4-16.0); Lymphocytes # (A) 1.2 k/uL (1.0-4.8); Lymphocytes % (A) 15 %; MCH 28.5 pg (25.0-35.0); MCHC 31.8 g/dL (31.0-37.0); MCV 89.5 fL (80.0-100.0); Mean Platelet Volume 5.8; Monocytes # (A) 0.7 k/uL (0-1.0); Monocytes % (A) 9 %; Neutrophils # (A) 5.5 k/uL (1.3-7.7); Neutrophils % (A) 68 %; Platelet Count 318 k/uL (150-450); RBC 4.71 m/uL (3.80-5.40); RDW 12.9 % (11.5-15.5); WBC 8.1 k/uL (3.8-10.6)
[2019-08-28 08:24] LABS: Calcium 10.3 mg/dL (8.4-10.2); Potassium 4.3 mmol/L (3.5-5.1); Total Bilirubin 0.6 mg/dL (0.2-1.3); Total Protein 6.9 g/dL (6.3-8.2)
[2019-08-28] MEDS: ALBUTEROL INHALER 60 PUFF/8 GM INHALER INHALATION SCH ×4 (09:21→20:05)
[2019-08-28] MEDS: CHOLECALCIFEROL 1,000 UNIT TAB PO SCH ×3 (09:22→21:08)
[2019-08-28] MEDS: ARIPiprazole 5 MG TAB PO SCH ×2 (09:22→09:42)
[2019-08-28] MEDS: ARIPiprazole 2 MG TAB PO SCH ×2 (09:22→09:42)
[2019-08-28] MEDS: LACTOBACILLUS ACIDOPH & BULGAR 1 EACH PACKET PO SCH ×3 (09:22→21:07)
[2019-08-28] MEDS: lamoTRIgine 25 MG TAB PO SCH ×2 (09:23→09:42)
[2019-08-28] MEDS: MULTIVITAMINS, THERA 1 EACH TAB PO SCH ×2 (09:23→09:42)
[2019-08-28] MEDS: MAGNESIUM OXIDE 400 MG TAB PO SCH ×2 (09:23→09:42)
--- NOTE | 2019-08-28 10:23 | P.PN ---
Progress Note - Text Progress Note Date: 08/28/19 Interval History: Patient was seen lying down in her bed with a sitter at the bedside. Patient appeared to be actively responding to internal stimuli speaking rapidly, nonsensically closing her eyes. Patient was difficult to interrupt however did answer brief questions and then resumed rambling. Patient did acknowledge quality analyst/technical writer however cursed the quality analyst/technical writer several times and stated "euro but loving ear loving nose loving". Patient did state that she is in the hospital and what her name was however did not give the date today. Patient as been noted by staff to the noncompliant with medications this morning and spit them out several times. Patient was unable to cooperate with the rest of the interview did not mention how her night was. Patient did admit to hearing voices however was not able to communicate what the voices were saying and continued rambling on illogically. Patient has poor impulse control at this time and poor insight. Mental Status Exam: General Appearance: Patient appears to be stated age is alert, actively responding to internal stimuli. Poor hygiene and grooming. Behavior: Patient is lying down with her hands up and closing her eyes. Speech: Patient's speech is rapid and illogical. Mood/Affect: Patient reports their mood is "ok", affect is congruent and constricted. Suicidality/Homicidality: Patient denies having any suicidal or homicidal ideation intent or plan. Perceptions: Admits to auditory hallucinations. Though content/process: Patient is a logical, rambling and loose in associations. Tangential. Memory and concentration: AOX2, appears somewhat confused and unable to participate. Judgment and insight: poor Assessment Bipolar disorder, currently in manic episode with psychotic features r/o delirium unknown etiology. Plan: -Patient is admitted under involuntary status to [facility]HU for stabilization of psychiatric symptoms and safety. Patient declined signing the adult voluntary form and declined signing medication consent form. Currently awaiting deferral and court date. -Medications : Will switch Lamictal to Depakene syrup 500 mg daily for mood stabilization. We'll switch Abilify to Haldol liquid 2 mg twice a day with plan to titrate up as needed. Continue with Melatonin 5 mg daily at bedtime for sleep. BuSpar 7.5 mg twice a day when necessary for anxiety. -Haldol PRN for agitation/aggression -UA and UDS negative. CBC and electrolytes appear to be ok at this time. Vitals show elevated blood pressure this morning likely as patient is not taking her medications. -NRT -need to his patient does not smoke. -SW on board for discharge planning. Weigher [employer] will attempt to speak with patient's outpatient psychiatrist Dr. Sweeney at [phone].
[2019-08-28] MEDS: HALOPERIDOL ORAL SOLN 10 MG/5 ML CUP PO SCH ×2 (10:38→21:07)
[2019-08-28] MEDS: VALPROIC ACID ORAL SOLN 250 MG/5 ML CUP PO SCH (10:43)
[2019-08-28] MEDS: LEVOFLOXACIN 250 MG TAB PO SCH (15:08)
[2019-08-28] MEDS: MELATONIN 5 MG TABLET PO SCH (21:09)
[2019-08-28] MEDS: HALOPERIDOL LACTATE 5 MG/ML 1 ML VIAL IM PRN (23:45)
[2019-08-29] MEDS: busPIRone HCl 5 MG TAB PO PRN ×2 (00:32→01:10)
[2019-08-29] MEDS: MULTIVITAMINS, THERA 1 EACH TAB PO SCH (09:24)
[2019-08-29] MEDS: LEVOTHYROXINE 88 MCG TAB PO SCH (09:24)
[2019-08-29] MEDS: MAGNESIUM OXIDE 400 MG TAB PO SCH (09:24)
[2019-08-29] MEDS: CHOLECALCIFEROL 1,000 UNIT TAB PO SCH ×2 (09:24→20:48)
[2019-08-29] MEDS: LACTOBACILLUS ACIDOPH & BULGAR 1 EACH PACKET PO SCH ×2 (09:24→20:48)
[2019-08-29] MEDS: ALBUTEROL INHALER 60 PUFF/8 GM INHALER INHALATION SCH ×3 (09:24→20:46)
[2019-08-29] MEDS: HALOPERIDOL ORAL SOLN 10 MG/5 ML CUP PO SCH ×2 (09:25→20:48)
[2019-08-29] MEDS: VALPROIC ACID ORAL SOLN 250 MG/5 ML CUP PO SCH (09:25)
--- NOTE | 2019-08-29 09:31 | P.PN ---
Progress Note - Text Progress Note Date: 08/29/19 Interval History: Patient was seen sitting in a chair beside her bed with a sitter at the bedside her. Patient appeared to be sleeping this morning however was awakened by rfp writer. Patient appeared to look confused and looking around the room and stated repeatedly "where am I in one of my doing here". Patient was asked where she was in her orientation and patient stated "[facility]" and then followed that up with "where am I in what am I doing here". Patient would not answer other questions besides stating her name. Patient was difficult to redirect this morning however appeared to be more logical and responding less to internal stimuli. Patient appeared to have dry lips however was noted to have her dinner last night and has not had her breakfast yet this morning. Patient was not rambling this morning. Patient did state that she slept last night after she received a a PRN medication. Patient was unable to cooperate with the rest of the interview and needed to be oriented several times. Patient expressed concern about her and his whereabouts to rfp writer. Patient has poor impulse control at this time and poor insight. Mental Status Exam: General Appearance: Patient appears to be stated age is alert, responding less to internal stimuli. Poor hygiene and grooming. Behavior: Patient is sitting down in her chair and appears to be confused. Speech: Patient's speech is logical. Mood/Affect: Patient reports their mood is "fine", affect is congruent and co nstricted. Suicidality/Homicidality: Patient denies having any suicidal or homicidal ideation intent or plan. Perceptions: Admits to auditory hallucinations. Though content/process: Patient is a logical. Tangential, and appropriate. Memory and concentration: AOX2, appears somewhat confused and unable to participate. Poor attention span. Judgment and insight: poor, improving mildly. Assessment Bipolar disorder, currently in manic episode with psychotic features r/o delirium unknown etiology. Plan: -Patient is admitted under involuntary status to [facility]HU for stabilization of psychiatric symptoms and safety. Patient declined signing the adult voluntary form and declined signing medication consent form. Currently awaiting deferral and court date. -Medications : Will continue with Depakene syrup 500 mg daily for mood stabilization. We'll continue with Haldol liquid 2 mg twice a day with plan to titrate up as needed. Continue with Melatonin 5 mg daily at bedtime for sleep. BuSpar 7.5 mg twice a day when necessary for anxiety. -Haldol PRN for agitation/aggression -UA and UDS negative. CBC and electrolytes appear to be ok at this time. -NRT -need to his patient does not smoke. -SW on board for discharge planning. Dielectric Embossing Machine Operator called Dr. Sweeney at [phone], no answer and left a voicemail. Awaiting deferral and court date.
[2019-08-29] MEDS: LEVOFLOXACIN 250 MG TAB PO SCH (14:37)
[2019-08-29] MEDS: MELATONIN 5 MG TABLET PO SCH (20:48)
[2019-08-30] MEDS: MULTIVITAMINS, THERA 1 EACH TAB PO SCH (09:19)
[2019-08-30] MEDS: CHOLECALCIFEROL 1,000 UNIT TAB PO SCH ×2 (09:19→21:41)
[2019-08-30] MEDS: LEVOTHYROXINE 88 MCG TAB PO SCH (09:19)
[2019-08-30] MEDS: ALBUTEROL INHALER 60 PUFF/8 GM INHALER INHALATION SCH ×3 (09:19→21:41)
[2019-08-30] MEDS: MAGNESIUM OXIDE 400 MG TAB PO SCH (09:19)
[2019-08-30] MEDS: LACTOBACILLUS ACIDOPH & BULGAR 1 EACH PACKET PO SCH ×2 (09:19→21:41)
[2019-08-30] MEDS: VALPROIC ACID ORAL SOLN 250 MG/5 ML CUP PO SCH (09:19)
[2019-08-30] MEDS: HALOPERIDOL ORAL SOLN 10 MG/5 ML CUP PO SCH ×3 (09:20→21:42)
--- NOTE | 2019-08-30 10:05 | P.PN ---
Progress Note - Text Progress Note Date: 08/30/19 Interval History: Patient was seen sitting in a chair beside her bed with a sitter at the bedside her attempting to eat her breakfast. Patient stopped but she was doing when music writer entered the room and held her fork in mid air with food on it. Patient was difficult to engage in conversation and looked away from music writer. Patient did not speak at all during the interaction and did not answer any questions. Patient followed some commands and moved her left arm slowly. Patient did not answer any orientation questions this morning and gave no other information. Mental Status Exam: General Appearance: Patient appears to be stated age is alert, not responding to internal stimuli. Poor hygiene and grooming. Neurological: No tremors no abnormal movements. Patient did have moderate rigidity in her upper and lower limbs. Follow minimal commands. Behavior: Patient is sitting down in her chair and appears to be confused. Uncooperative with interview. Speech: Patient's speech is absent today. Mood/Affect: Unable to assess mood, affect is constricted. Suicidality/Homicidality: Unable to assess Perceptions: Unable to assess. Patient is not responding to internal stimuli today. Though content/process: Patient did not speak today, follow minimal commands. Memory and concentration: Unable to assess. Poor attention span. Judgment and insight: poor Assessment Bipolar disorder, currently in manic episode with psychotic features Plan: -Patient is admitted under involuntary status to [facility] for stabilization of psychiatric symptoms and safety. Patient declined signing the adult voluntary form and declined signing medication consent form. Patient was seen by state's attorney yesterday however did not sign deferral. Automatic Driller [employer] Reamer will revisit patient prior to court date next week. -Medications : Will continue with Depakene syrup 500 mg daily for mood stabilization. We'll decrease Haldol liquid 2 mg twice a day for psychosis. Continue with Melatonin 5 mg daily at bedtime for sleep. BuSpar 7.5 mg twice a day when necessary for anxiety. Will likely cross titrate to Risperdal and eventually start patient on long-acting injection. -Transfer Agent spoke with Dr. Stewart over the phone this morning who states that patient has a long history of noncompliance with medications and paranoia about the medications. She also states that patient is brittle and can become psychotic if noncompliant along with difficult to stabilize. She claims that patient has done well on Abilify in the past along with lithium and Depakote and also Baljit. She claims that patient will do much better on a long-acting medication due to noncompliance. -Haldol PRN for agitation/aggression -UA and UDS negative. CBC and electrolytes appear to be ok at this time. -NRT -need to his patient does not smoke. -SW on board for discharge planning. Court date set for next week.
[2019-08-30] MEDS: LEVOFLOXACIN 250 MG TAB PO SCH (14:25)
[2019-08-30] MEDS: MELATONIN 5 MG TABLET PO SCH (21:41)
[2019-08-31] MEDS: LEVOTHYROXINE 88 MCG TAB PO SCH (06:09)
[2019-08-31] MEDS: ALBUTEROL INHALER 60 PUFF/8 GM INHALER INHALATION SCH ×3 (09:17→20:15)
[2019-08-31] MEDS: VALPROIC ACID ORAL SOLN 250 MG/5 ML CUP PO SCH (09:18)
[2019-08-31] MEDS: LACTOBACILLUS ACIDOPH & BULGAR 1 EACH PACKET PO SCH ×2 (09:18→21:59)
[2019-08-31] MEDS: MAGNESIUM OXIDE 400 MG TAB PO SCH (09:18)
[2019-08-31] MEDS: MULTIVITAMINS, THERA 1 EACH TAB PO SCH (09:18)
[2019-08-31] MEDS: CHOLECALCIFEROL 1,000 UNIT TAB PO SCH ×2 (09:18→22:00)
--- NOTE | 2019-08-31 10:21 | P.PN ---
Progress Note - Text Progress Note Date: 08/31/19 Interval History: Patient was seen sitting in a chair beside her bed with a sitter at the bedside after eating her breakfast and holding a water cup in her hand. Patient appeared to be more awake today and mildly more interactive with bid writer. Patient looked away several times and staring at the wall when bid writer was asking questions. Patient did acknowledge a bid writer and nodded her head when bid writer asked if she knew him. Patient had a Bible in her lap and when asked about inpatient simply stared at it and did not reply. Patient was willing to follow more commands this morning and was able to shake bid writer's hand. Patient had less muscle rigidity and did not have any tremors. Patient was noted by [facility] to have been using the bathroom with some assistance and partially eating her breakfast this morning. Patient did not answer any orientation questions this morning and gave no other information. Mental Status Exam: General Appearance: Patient appears to be stated age is alert, not responding to internal stimuli. Improving hygiene and grooming. Neurological: No tremors no abnormal movements. Mild rigidity in her upper and lower limbs. Follows some commands. Behavior: Patient is sitting down in her chair. Speech: Patient's speech is is mildly improved today. Mood/Affect: Unable to assess mood, affect is constricted. Suicidality/Homicidality: Unable to assess Perceptions: Unable to assess. Patient is not responding to internal stimuli today. Though content/process: Patient spoke more today, followed more commands. Memory and concentration: Unable to assess. Poor attention span. Judgment and insight: poor Assessment Bipolar disorder, currently in manic episode with psychotic features Plan: -Patient is admitted under involuntary status to MHU for stabilization of psychiatric symptoms and safety. Patient declined signing the adult voluntary form and declined signing medication consent form. Road Grader will revisit patient prior to court date next week. -Medications : Will continue with Depakene syrup 500 mg daily for mood stabilization. We'll continue with Haldol liquid 2 mg twice a day for psychosis. Continue with Melatonin 5 mg daily at bedtime for sleep. BuSpar 7.5 mg twice a day when necessary for anxiety. Patient will likely need to be transitioned onto either Risperdal versus Abilify to be put on a long-acting injection due to medication noncompliance. -Haldol PRN for agitation/aggression -NRT -need to his patient does not smoke. -SW on board for discharge planning. Court date set for 2018 at 9:30am
[2019-08-31] MEDS: LEVOFLOXACIN 250 MG TAB PO SCH (15:50)
[2019-08-31] MEDS: HALOPERIDOL ORAL SOLN 10 MG/5 ML CUP PO SCH (21:01)
[2019-08-31] MEDS: MELATONIN 5 MG TABLET PO SCH (22:00)
[2019-09-01] MEDS: LEVOTHYROXINE 88 MCG TAB PO SCH (06:25)
[2019-09-01] MEDS: ALBUTEROL INHALER 60 PUFF/8 GM INHALER INHALATION SCH ×3 (09:32→21:00)
[2019-09-01] MEDS: LACTOBACILLUS ACIDOPH & BULGAR 1 EACH PACKET PO SCH ×2 (09:34→21:59)
[2019-09-01] MEDS: MAGNESIUM OXIDE 400 MG TAB PO SCH (09:34)
[2019-09-01] MEDS: MULTIVITAMINS, THERA 1 EACH TAB PO SCH (09:34)
[2019-09-01] MEDS: CHOLECALCIFEROL 1,000 UNIT TAB PO SCH ×2 (09:34→21:59)
[2019-09-01] MEDS: VALPROIC ACID ORAL SOLN 250 MG/5 ML CUP PO SCH (09:34)
--- NOTE | 2019-09-01 09:50 | P.PN ---
Progress Note - Text Progress Note Date: 09/01/19 Interval History: Patient was seen sitting in her chair beside her bed and appeared to be awake. Patient appeared to be looking around the room and was able to engage with scientific writer momentarily. She states that she knows who scientific writer is. Patient was initially more cooperative with the interview and spoke more than yesterday. Patient was able to follow more commands today and shook scientific writer's hand. Patient thought the year was "1993" however was oriented to place and person. Patient looked away several times and staring at the wall when scientific writer was asking questions. Patient had a Bible in her lap and was able to take it from the scientific writer and look through it Briefly. Patient had less muscle rigidity and did not have any tremors. Mental Status Exam: General Appearance: Patient appears to be stated age is alert, not responding to internal stimuli however looks around the room at times. Improving hygiene and grooming. Neurological: No tremors no abnormal movements. Mild rigidity in her upper and lower limbs. Follows some commands. Behavior: Patient is sitting down in her chair. Speech: Patient's speech is is mildly improved today. Mood/Affect: Unable to assess mood, affect is constricted. Suicidality/Homicidality: Unable to assess Perceptions: Unable to assess. Patient is not responding to internal stimuli today. Looking around the room at times. Though content/process: Patient spoke more today however continues to have poverty of content and thought., followed more commands. Memory and concentration: Unable to assess. Poor attention span. Judgment and insight: poor Assessment Bipolar disorder, currently in manic episode with psychotic features Plan: -Patient is admitted under involuntary status to MHU for stabilization of psychiatric symptoms and safety. Patient declined signing the adult voluntary form and declined signing medication consent form. Will await court date next week. -Medications : Will switch Depakene syrup 500 mg nightly for mood stabilization. We'll attempt to cross titrate Haldol with Abilify gradually. Haldol decreased to 1 mg daily at bedtime for tonight or psychosis and then to be discontinued. We'll start Abilify 2.5 mg every morning tomorrow with plan to increase as tolerated. Continue with Melatonin 5 mg daily at bedtime for sleep. BuSpar 7.5 mg twice a day when necessary for anxiety. -Haldol PRN for agitation/aggression -NRT -need to his patient does not smoke. -SW on board for discharge planning. Court date set for 2018 at 9:30am.
[2019-09-01] MEDS: LEVOFLOXACIN 250 MG TAB PO SCH (14:37)
[2019-09-01] MEDS ORDERED: HALOPERIDOL ORAL SOLN 10 MG/5 ML CUP PO SCH (21:00)
[2019-09-01] MEDS: MELATONIN 5 MG TABLET PO SCH (21:59)
[2019-09-02] MEDS: LEVOTHYROXINE 88 MCG TAB PO SCH (06:32)
[2019-09-02] MEDS: ALBUTEROL INHALER 60 PUFF/8 GM INHALER INHALATION SCH ×3 (09:21→20:17)
[2019-09-02] MEDS: MULTIVITAMINS, THERA 1 EACH TAB PO SCH (09:21)
[2019-09-02] MEDS: CHOLECALCIFEROL 1,000 UNIT TAB PO SCH ×2 (09:21→21:16)
[2019-09-02] MEDS: ARIPiprazole 5 MG TAB PO SCH (09:21)
[2019-09-02] MEDS: LACTOBACILLUS ACIDOPH & BULGAR 1 EACH PACKET PO SCH ×2 (09:22→21:17)
[2019-09-02] MEDS: MAGNESIUM OXIDE 400 MG TAB PO SCH (09:22)
--- NOTE | 2019-09-02 12:02 | P.PN ---
Progress Note - Text Interval history: The patient is found in the [facility] seated in a wheelchair we spoke in an interview room. For the most part she appears withdrawn she verbalizes no spontaneous speech other than a few unintelligible whispers. She does not provide answers to some questions pertaining to mood or symptoms of psychosis. Staff reported she slept 6 hours. No reports of any behavioral disturbance. Mental status exam: The patient is an overweight female appearing her stated age she has white hair pulled back in a ponytail she is dressed in hospital gowns she seated in a wheelchair. She allows me to push her to the interview room in the wheelchair. Eye contact is poor. She answers a few questions in a linear fashion she has several unrelated intrusions often time she whispers things that cannot understood. She demonstrates disorganization of thought. Initially she was not oriented to day or month she was given that information and when retested a few moments later she was able to repeat the correct answers. She demonstrates no verbal or physical aggressiveness she maintains a flat affect she demonstrates no involuntary repetitive movements. Insight and judgment are impaired. Plan: The patient will continue on her psychotropic medications as planned. We will monitor her for safety and encourage participation in the milieu. Vital signs reviewed. She requires continued psychiatric hospitalization due to her acute symptoms.
[2019-09-02] MEDS: LEVOFLOXACIN 250 MG TAB PO SCH (14:28)
[2019-09-02] MEDS: MELATONIN 5 MG TABLET PO SCH (21:16)
[2019-09-02] MEDS: VALPROIC ACID ORAL SOLN 250 MG/5 ML CUP PO SCH (22:16)
[2019-09-03] MEDS: LEVOTHYROXINE 88 MCG TAB PO SCH (06:14)
[2019-09-03] MEDS: ALBUTEROL INHALER 60 PUFF/8 GM INHALER INHALATION SCH ×3 (09:46→20:47)
[2019-09-03] MEDS: CHOLECALCIFEROL 1,000 UNIT TAB PO SCH ×2 (09:47→21:46)
[2019-09-03] MEDS: MAGNESIUM OXIDE 400 MG TAB PO SCH (09:47)
[2019-09-03] MEDS: ARIPiprazole 5 MG TAB PO SCH (09:47)
[2019-09-03] MEDS: LACTOBACILLUS ACIDOPH & BULGAR 1 EACH PACKET PO SCH ×2 (09:47→21:46)
[2019-09-03] MEDS: MULTIVITAMINS, THERA 1 EACH TAB PO SCH (09:47)
--- NOTE | 2019-09-03 13:04 | P.PN ---
Progress Note - Text Interval history: The patient is found in her room she seated in a recliner. She is awake upon approach. She reports her mood is not so good. She indicates that she was having nightmares last night about seen people get shot in the war. Staff report that she slept only 4 hours last evening. She indicates she reckless. She did not attend any groups that I'm aware of this morning. She has no questions or concerns regarding medication. There is no report of behavioral disturbance. Mental status exam: The patient is alert but tired-appearing she seated upright in her chair. Eye contact is intermittent. Speech is soft quiet nonpressured. She continues to focus on "the war" and seen people shot. It is unclear if this is a hallucination that's occurring during her waking hours. She reports no suicidal or homicidal ideation intent or plan. She will make some random statements that are unrelated to the topic we are trying to discuss. Thought process can be tangential or loose. She demonstrates no verbal or physical aggressiveness. She retains a blunted affect throughout the session. She demonstrates no involuntary repetitive movements. She is oriented to person place and date. Insight and judgment are impaired. Plan: The patient will continue on her current psychotropic medication. We may decide to titrate the Abilify further. We will monitor her for safety and encourage participation in the milieu. Vital signs reviewed. She requires continued psychiatric hospitalization for further clinical stabilization.
[2019-09-03] MEDS: LEVOFLOXACIN 250 MG TAB PO SCH (15:50)
[2019-09-03] MEDS: MELATONIN 5 MG TABLET PO SCH (21:46)
[2019-09-03] MEDS: VALPROIC ACID ORAL SOLN 250 MG/5 ML CUP PO SCH (21:47)
[2019-09-04] MEDS: LEVOTHYROXINE 88 MCG TAB PO SCH (06:24)
[2019-09-04] MEDS: ALBUTEROL INHALER 60 PUFF/8 GM INHALER INHALATION SCH ×3 (09:38→20:18)
[2019-09-04] MEDS: CHOLECALCIFEROL 1,000 UNIT TAB PO SCH ×2 (09:39→20:18)
[2019-09-04] MEDS: MULTIVITAMINS, THERA 1 EACH TAB PO SCH (09:39)
[2019-09-04] MEDS: ARIPiprazole 5 MG TAB PO SCH (09:39)
[2019-09-04] MEDS: MAGNESIUM OXIDE 400 MG TAB PO SCH (09:39)
[2019-09-04] MEDS: LACTOBACILLUS ACIDOPH & BULGAR 1 EACH PACKET PO SCH ×2 (09:39→20:18)
[2019-09-04] MEDS ORDERED: ARIPiprazole 5 MG TAB PO ONE (10:30)
--- NOTE | 2019-09-04 10:33 | P.PN ---
Progress Note - Text Progress Note Date: 09/04/19 Interval History: Patient was seen laying down in her bed however was okay and very easily and m uch more communicative with the technical publications writer today. Patient did not appear to be responding to internal stimuli. She states that her came to visit her over the weekend which she appreciated. She states that "the Haldol made me feel like a zombie" and states that she did not want to take the medication any longer. She states that her Abilify needed to be taken as a shot every month to help her stay stable. She claims that she feels "better today". Patient appeared to have better attention span this morning and was alert and oriented 3. Patient was focused on discharge however when asked about groups she states that she has not been going to any. Patient was encouraged to go to groups for today. She states that she refused her Depakote yesterday. Patient denies any auditory or visual hallucinations at this time. She denies any suicidal or homicidal ideations intent or plan. Mental Status Exam: General Appearance: Patient appears to be stated age is alert, attempts to coope rate and is more directable this morning. Improving hygiene and grooming. Neurological: No tremors no abnormal movements. Follows some commands. Behavior: Patient is laying in bed, no agitation. Speech: Patient's speech is is mildly improved today. Mood/Affect: Patient reports feeling "better", affect is congruent and appropriate. Suicidality/Homicidality: Denies Perceptions: Denies any auditory or visual hallucinations at this time. Patient is not responding to internal stimuli today. Though content/process: Patient was more verbal today and communicative. Patient was oriented and more logical. followed more commands. Memory and concentration: Alert and oriented 3, Improving attention span. Judgment and insight: poor, improving. Assessment Bipolar disorder, currently in manic episode with psychotic features Plan: -Patient is admitted under involuntary status to MHU for stabilization of psychiatric symptoms and safety. Patient declined signing the adult voluntary form and declined signing medication consent form. Will await court date on Wednesday. -Medications : Will switch to Depakote ER 500 mg daily at bedtime for mood stabilization. We'll continue increasing Abilify 5 mg every morning with plan to increase as tolerated. Continue with Melatonin 5 mg daily at bedtime for sleep. BuSpar 7.5 mg twice a day when necessary for anxiety. -Haldol PRN for agitation/aggression -NRT -need to his patient does not smoke. -SW on board for discharge planning. Court date set for 2018 at 9:30am.
[2019-09-04] MEDS: DIVALPROEX ER 500 MG TAB.ER.24H PO SCH (20:18)
[2019-09-04] MEDS: MELATONIN 5 MG TABLET PO SCH (20:18)
[2019-09-05] MEDS: LEVOTHYROXINE 88 MCG TAB PO SCH (06:38)
[2019-09-05] MEDS: ALBUTEROL INHALER 60 PUFF/8 GM INHALER INHALATION SCH ×3 (10:20→20:04)
[2019-09-05] MEDS: ARIPiprazole 5 MG TAB PO SCH (10:20)
[2019-09-05] MEDS: MAGNESIUM OXIDE 400 MG TAB PO SCH (10:21)
[2019-09-05] MEDS: CHOLECALCIFEROL 1,000 UNIT TAB PO SCH ×2 (10:21→20:04)
[2019-09-05] MEDS: LACTOBACILLUS ACIDOPH & BULGAR 1 EACH PACKET PO SCH ×2 (10:21→20:04)
[2019-09-05] MEDS: MULTIVITAMINS, THERA 1 EACH TAB PO SCH (10:21)
--- NOTE | 2019-09-05 14:17 | P.PN ---
Progress Note - Text Progress Note Date: 09/05/19 Interval History: Patient was seen at her bedside sitting in her chair and finishing up her lunch and was agreeable to speak to grant writer. Patient appeared to be somewhat more communicative today however was slow to answer. Patient states that she did not sleep well last night and that she misses her family. She appeared to follow most directions during conversation and also commands. Patient was alert and oriented 2 today, she states that it is the year "1950" and is September. Patient did not appear to be responding to internal stimuli however was whispering under her breath at times and looked away from grant writer. When asked about her medications patient has poor insight towards him and only knows that she is taking Abilify for her "mood". She claims that she feels "good today". Patient appeared to have better attention span. Patient was encouraged to go to groups for today. Patient denies any auditory or visual hallucinations at this time. She denies any suicidal or homicidal ideations intent or plan. Patient abruptly ended the interview and wanted to be left alone and asked grant writer to leave. Mental Status Exam: General Appearance: Patient appears to be stated age is alert, attempts to cooperate. Fair hygiene and grooming. Neurological: No tremors no abnormal movements. Follows some commands. Behavior: Patient is laying in bed, no agitation. Speech: Patient's speech is is mildly improved today. Slow to respond. Mood/Affect: Patient reports feeling "ok", affect is congruent and appropriate. Suicidality/Homicidality: Denies Perceptions: Denies any auditory or visual hallucinations at this time. Patient is not responding to internal stimuli today. Though content/process: Patient was more verbal today and communicative. Patient was oriented and more logical. followed more commands. Memory and concentration: Alert and oriented 2, she believes it is September 1950, Improving attention span. Judgment and insight: poor, improving. Assessment Bipolar disorder, currently in manic episode with psychotic features Plan: -Patient is admitted under involuntary status to MHU for stabilization of psychiatric symptoms and safety. Patient declined signing the adult voluntary form and declined signing medication consent form. Will await court date on Wednesday. -Medications : Will continue with Depakote ER 500 mg daily at bedtime for mood stabilization. We'll continue with Abilify 5 mg every morning with plan to increase as tolerated. Continue with Melatonin 5 mg daily at bedtime for sleep. BuSpar 7.5 mg twice a day when necessary for anxiety. -Haldol PRN for agitation/aggression -NRT -need to his patient does not smoke. -TOM on board for discharge planning. Patient met with attorneys yesterday and deferred.
[2019-09-05] MEDS: DIVALPROEX ER 500 MG TAB.ER.24H PO SCH (20:04)
[2019-09-05] MEDS: MELATONIN 5 MG TABLET PO SCH (20:04)
[2019-09-06] MEDS: LEVOTHYROXINE 88 MCG TAB PO SCH (06:37)
[2019-09-06] MEDS: ALBUTEROL INHALER 60 PUFF/8 GM INHALER INHALATION SCH ×3 (09:50→21:47)
[2019-09-06] MEDS: LACTOBACILLUS ACIDOPH & BULGAR 1 EACH PACKET PO SCH ×3 (09:51→22:09)
[2019-09-06] MEDS: ARIPiprazole 5 MG TAB PO SCH (09:51)
[2019-09-06] MEDS: MAGNESIUM OXIDE 400 MG TAB PO SCH (09:51)
[2019-09-06] MEDS: CHOLECALCIFEROL 1,000 UNIT TAB PO SCH ×2 (09:51→21:43)
[2019-09-06] MEDS: MULTIVITAMINS, THERA 1 EACH TAB PO SCH (09:51)
--- NOTE | 2019-09-06 11:21 | P.PN ---
Progress Note - Text Progress Note Date: 09/06/19 Interval History: Patient was seen at her bedside laying down in her bed and was agreeable to sp eak to publicity writer. Patient appeared to be more awake today and was more communicative with publicity writer. Patient answered more questions however was somewhat slow to answer at times. Patient did whisper under her breath at times during the interview. Patient states that she is feeling better today in terms of her mood and also anxiety. Patient was focused on discharge and appeared to be somewhat confused however was able to answer orientation questions correctly including date, name and location. She claims that she spoke with her who will be coming to visit her today. She also states that she slept well last night. Patient continues to claim that she does not want to take Depakote at this time and prefers to be on her Abilify injection. She claims that her appetite is gradually been improving and also that she has not been going to groups. Patient did state that she was up walking yesterday however was not visible to publicity writer or other staff. Patient appeared to have better attention span. Patient was encouraged to go to groups for today and patient agreed and claims that she will. Patient denies any auditory or visual hallucinations at this time. She denies any suicidal or homicidal ideations intent or plan. Mental Status Exam: General Appearance: Patient appears to be stated age is alert, attempts to cooperate. Fair hygiene and grooming. Neurological: No tremors no abnormal movements. Follows most commands. Behavior: Patient is laying in bed, no agitation. Speech: Patient's speech is is mildly improved today. Slow to respond at times. Mood/Affect: Patient reports feeling "better", affect is congruent and appropriate. Suicidality/Homicidality: Denies Perceptions: Denies any auditory or visual hallucinations at this time. Not responding to internal stimuli today. Though content/process: Patient was more verbal today and communicative. Patient was goal oriented and more logical Memory and concentration: Alert and oriented 3, Improving attention span. Judgment and insight: poor, improving. Assessment Bipolar disorder, currently in manic episode with psychotic features Plan: -Patient is admitted under involuntary status to MHU for stabilization of psychiatric symptoms and safety. Patient declined signing the adult voluntary form and declined signing medication consent form. Patient signed deferral on 09/04/2019. -Medications : Will decrease Depakote ER 250 mg daily at bedtime for mood stabilization. We'll increase Abilify 7.5 mg daily for mood stabilization with plan to increase as tolerated. Continue with Melatonin 5 mg daily at bedtime for sleep. BuSpar 7.5 mg twice a day when necessary for anxiety. -Haldol PRN for agitation/aggression -NRT -need to his patient does not smoke. -TOM on board for discharge planning. Patient met with attorneys on 09/04/2019 and deferred. child and family services worker to reach out to patient's to come and visit [place] to assess for baseline and functioning.
[2019-09-06] MEDS ORDERED: DIVALPROEX ER 250 MG TAB.ER.24H PO SCH (21:00)
[2019-09-06] MEDS: MELATONIN 5 MG TABLET PO SCH (21:44)
[2019-09-07] MEDS: LEVOTHYROXINE 88 MCG TAB PO SCH (06:46)
[2019-09-07] MEDS: MAGNESIUM OXIDE 400 MG TAB PO SCH (09:44)
[2019-09-07] MEDS: CHOLECALCIFEROL 1,000 UNIT TAB PO SCH ×2 (09:44→20:23)
[2019-09-07] MEDS: ARIPiprazole 5 MG TAB PO SCH (09:44)
[2019-09-07] MEDS: MULTIVITAMINS, THERA 1 EACH TAB PO SCH (09:44)
[2019-09-07] MEDS: LACTOBACILLUS ACIDOPH & BULGAR 1 EACH PACKET PO SCH ×2 (09:44→20:23)
[2019-09-07] MEDS: ALBUTEROL INHALER 60 PUFF/8 GM INHALER INHALATION SCH ×3 (09:45→20:23)
--- NOTE | 2019-09-07 11:31 | P.PN ---
Progress Note - Text Progress Note Date: 09/07/19 Interval History: Patient was seen at her bedside laying down and was agreeable to follow medical technical writer and speak in the office. Patient appeared to be more awake today and expressed more of her thoughts was brighter. Patient spoke about being under financial stress and taking out loans from a bank to pay off her debt. She states that she was on track to pay her debts however claims that her is not keeping up with that. She claimed that her did come last night to visit her however did not give details about how the interaction went and stated that will be dropping off close. Patient was somewhat hesitant/slow to respond and appeared to be confused at times when answering questions and was looking around the room blankly. She claims that she did sleep last night and has been taking her medications. She states that she was on Lamictal in the past and helped with her depression and mood and was willing to go back on this medication. Patient was adamant with medical technical writer that she did not want to be on Depakote or Haldol at this time as it "makes me into a zombie". Patient did whisper under her breath at times during the interview. Patient again appeared to be somewhat confused however was able to answer orientation questions correctly including date, name and location. She claims that her appetite is gradually been improving and also that she went to some groups yesterday however did not remember the details or the topic of the group. Patient admitted to hearing auditory hallucinations however did not give details further. Patient denies any visual hallucinations at this time. She denies any suicidal or homicidal ideations intent or plan. Mental Status Exam: General Appearance: Patient appears to be stated age is alert, attempts to cooperate, appears to be somewhat confused at times. Improving hygiene and grooming. Neurological: No tremors no abnormal movements. Behavior: Patient is sitting in chair, no agitation. Attempts to cooperate. Speech: Patient's speech is hesitant and slow to respond Mood/Affect: Patient reports feeling "not good today", affect is congruent and constricted. Suicidality/Homicidality: Denies Perceptions: Denies visual hallucinations at this time. Patient admits to auditory hallucinations Though content/process: Patient was more verbal today and communicative. Patient was goal oriented and more logical. Hesitant. Memory and concentration: Alert and oriented 3, Improving attention span. Judgment and insight: poor, improving. Assessment Bipolar disorder, currently in manic episode with psychotic features Plan: -Patient is admitted under involuntary status to MHU for stabilization of psychiatric symptoms and safety. Patient declined signing the adult voluntary form and declined signing medication consent form. Patient signed deferral for treatment on 09/04/2019. -Medications : Will discontinue Depakote at this time and start patient on Lamictal 25 mg daily at bedtime for mood stabilization/depression. We'll continue with Abilify 7.5 mg daily for mood stabilization with plan to increase as tolerated. Continue with Melatonin 5 mg daily at bedtime for sleep. BuSpar 7.5 mg twice a day when necessary for anxiety. -Haldol PRN for agitation/aggression -NRT -need to his patient does not smoke. -SW on board for discharge planning. As per social sciences instructor, states that she spoke with over the phone after visitation and claims that patient has been improving however is not at her baseline at this time.
[2019-09-07] MEDS: MELATONIN 5 MG TABLET PO SCH (20:23)
[2019-09-07] MEDS: lamoTRIgine 25 MG TAB PO SCH (20:24)
[2019-09-08] MEDS: LEVOTHYROXINE 88 MCG TAB PO SCH (07:11)
[2019-09-08] MEDS: CHOLECALCIFEROL 1,000 UNIT TAB PO SCH ×2 (08:11→20:42)
[2019-09-08] MEDS: MULTIVITAMINS, THERA 1 EACH TAB PO SCH (08:11)
[2019-09-08] MEDS: ARIPiprazole 5 MG TAB PO SCH (08:11)
[2019-09-08] MEDS: LACTOBACILLUS ACIDOPH & BULGAR 1 EACH PACKET PO SCH ×2 (08:11→20:42)
[2019-09-08] MEDS: ALBUTEROL INHALER 60 PUFF/8 GM INHALER INHALATION SCH ×3 (09:13→20:42)
[2019-09-08] MEDS: MAGNESIUM OXIDE 400 MG TAB PO SCH (09:14)
--- NOTE | 2019-09-08 09:52 | P.PN ---
Progress Note - Text Progress Note Date: 09/08/19 Interval History: Patient was seen at her bedside laying down and was agreeable to follow scientific technical writer and speak in the office. Patient appeared to be more awake today and was more communicative with scientific technical writer during interview. Patient continues to be distracted and looking around the room and began reading words on binders and other labels in the office. Patient states that she is taking her medications and claims that she feels "the same" and began speaking about leaving the hospital. She states that "I want to get the shot and I want to leave". She claims that she feels her mood is much more stable and denies any depression at this time. Patient spoke about missing her and when asked about groups she states that she went to 1 group yesterday and is agreeable to go to the morning group today. She also claimed that she ate her breakfast again this morning with no issues. Patient continues to be somewhat hesitant/slow to respond and appeared to be confused at times when answering questions and was looking around the room blankly. She claims that she did sleep last night and has been taking her medications. She was able to answer orientation questions correctly including date, name and location. Patient also had 2 of 3 memory recall after 5 minutes and has a fair fund of knowledge listing the past presidents. She claims that her appetite is gradually been improving. Patient again admits to hearing auditory hallucinations however did not give details further. Patient denies any visual hallucinations at this time. She denies any suicidal or homicidal ideations intent or plan. Mental Status Exam: General Appearance: Patient appears to be stated age is alert, attempts to cooperate, appears to be somewhat confused at times. Improving hygiene and grooming. Neurological: No tremors no abnormal movements. Behavior: Patient is sitting in chair, no agitation. Attempts to cooperate. Speech: Patient's speech is hesitant and slow to respond Mood/Affect: Patient reports feeling "ok", affect is congruent and constricted. Suicidality/Homicidality: Denies Perceptions: Denies visual hallucinations at this time. Patient admits to auditory hallucinations Though content/process: Patient was more verbal today and communicative. Patient was goal oriented and more logical. Hesitant. Memory and concentration: Alert and oriented 3, Improving attention span. 2 out of 3 memory recall to 5 minutes and fair fund of knowledge. Judgment and insight: poor, improving Assessment Bipolar disorder, currently in manic episode with psychotic features Plan: -Patient is admitted under involuntary status to [facility] for stabilization of psychiatric symptoms and safety. Patient declined signing the adult voluntary form and declined signing medication consent form. Patient signed deferral for treatment on 09/04/2019. -Medications : Will continue with Lamictal 25 mg daily at bedtime for mood stabilization/depression with plan to titrate up as needed. We'll increase Abilify 10 mg daily for mood stabilization. Continue with Melatonin 5 mg daily at bedtime for sleep. BuSpar 7.5 mg twice a day when necessary for anxiety. -Will plan to give Abilify maintainna injection once patient is stabilized on PO. -Haldol PRN for agitation/aggression -NRT -need to his patient does not smoke. -SW on board for discharge planning.
[2019-09-08] MEDS: lamoTRIgine 25 MG TAB PO SCH (20:42)
[2019-09-08] MEDS: MELATONIN 5 MG TABLET PO SCH (20:42)
[2019-09-09] MEDS: LEVOTHYROXINE 88 MCG TAB PO SCH (06:38)
[2019-09-09] MEDS: MAGNESIUM OXIDE 400 MG TAB PO SCH (08:39)
[2019-09-09] MEDS: ARIPiprazole 10 MG TAB PO SCH (08:39)
[2019-09-09] MEDS: ALBUTEROL INHALER 60 PUFF/8 GM INHALER INHALATION SCH ×4 (08:39→20:49)
[2019-09-09] MEDS: MULTIVITAMINS, THERA 1 EACH TAB PO SCH (08:39)
[2019-09-09] MEDS: LACTOBACILLUS ACIDOPH & BULGAR 1 EACH PACKET PO SCH ×3 (08:39→20:48)
[2019-09-09] MEDS: CHOLECALCIFEROL 1,000 UNIT TAB PO SCH ×2 (08:39→20:41)
[2019-09-09] MEDS: MAGNESIUM HYDROXIDE 2,400 MG/10 ML CUP PO PRN (09:11)
--- NOTE | 2019-09-09 11:44 | P.PN ---
Progress Note - Text Progress Note Date: 09/09/19 Interval History: Patient was seen at her bedside laying down and was agreeable to speak to [facility]. Patient appeared to be more awake today and claims that she feels "better". She states that her mood has been improving and that she feels that she has a better appetite. Patient spoke about her morning breakfast. Patient also states that she was up walking around the unit earlier on went back to sleep. Patient was encouraged to continue to be visible on the unit and go to groups however patient was dismissive and reluctant. Patient did state that her was coming to see her tonight which she was happy for. Patient was alert and oriented 3 today and appeared to be not responding to internal stimuli this morning. She states that she slept most of the night with some interruptions. Today patient denies any auditory hallucinations. Patient denies any visual hallucinations at this time. She denies any suicidal or homicidal ideations intent or plan. Mental Status Exam: General Appearance: Patient appears to be stated age is alert, attempts to cooperate. Improving hygiene and grooming. Patient was laying in the bed. Behavior: Patient laying in her bed, no agitation. Was dismissive at times. Speech: Patient's speech is hesitant and slow to respond Mood/Affect: Patient reports feeling "better", affect is congruent and constricted. Suicidality/Homicidality: Denies Perceptions: Denies visual hallucinations or auditory hallucinations Though content/process: Patient was more verbal today and communicative. Patient was goal oriented and more logical. Hesitant. Memory and concentration: Alert and oriented 3, Improving attention span. 2 out of 3 memory recall to 5 minutes and fair fund of knowledge. Judgment and insight: poor, improving mildly Assessment Bipolar disorder, currently in manic episode with psychotic features Plan: -Patient is admitted under involuntary status to [facility]HU for stabilization of psychiatric symptoms and safety. Patient declined signing the adult voluntary form and declined signing medication consent form. Patient signed deferral for treatment on 09/04/2019. -Medications : Will increase Lamictal 50 mg daily at bedtime for mood stabilization/depression with plan to titrate up as needed. We'll continue with Abilify 10 mg daily for mood stabilization. Continue with Melatonin 5 mg daily at bedtime for sleep. BuSpar 7.5 mg twice a day when necessary for anxiety. -Will plan to give Abilify maintainna injection once patient is stabilized on PO. -Haldol PRN for agitation/aggression -NRT -need to his patient does not smoke. -SW on board for discharge planning.
[2019-09-09] MEDS: MELATONIN 5 MG TABLET PO SCH (20:40)
[2019-09-09] MEDS: lamoTRIgine 25 MG TAB PO SCH (20:41)
[2019-09-10] MEDS: LEVOTHYROXINE 88 MCG TAB PO SCH (06:23)
[2019-09-10] MEDS: CHOLECALCIFEROL 1,000 UNIT TAB PO SCH ×2 (09:20→22:06)
[2019-09-10] MEDS: ARIPiprazole 10 MG TAB PO SCH (09:20)
[2019-09-10] MEDS: LACTOBACILLUS ACIDOPH & BULGAR 1 EACH PACKET PO SCH ×2 (09:21→22:07)
[2019-09-10] MEDS: MULTIVITAMINS, THERA 1 EACH TAB PO SCH (09:21)
[2019-09-10] MEDS: ALBUTEROL INHALER 60 PUFF/8 GM INHALER INHALATION SCH ×4 (09:21→22:04)
[2019-09-10] MEDS: MAGNESIUM OXIDE 400 MG TAB PO SCH (09:21)
--- NOTE | 2019-09-10 11:23 | P.PN ---
Progress Note - Text Progress Note Date: 09/10/19 Interval History: Patient was seen at her bedside laying down and was agreeable to speak to [facility] (formerly [facility])[3]. patient continues to state that she is feeling more improved than yesterday however patient continues to want to be lying down in her bed. When asked if patient has been attempting to go to groups patient claims that she has not. She did state that her came to visit her yesterday and states that she believes she is going home soon. Patient was oriented 3 today and appears less confused. She claims that her mood has been improving along with her anxiety. she did state that she got up for breakfast and was encouraged to stay out of bed during the day. She states that she slept most of the night with some interruptions. Today patient denies any auditory hallucinations. Patient denies any visual hallucinations at this time. She denies any suicidal or homicidal ideations intent or plan. Mental Status Exam: General Appearance: Patient appears to be stated age is alert, attempts to cooperate. Improving hygiene and grooming. Patient was laying in the bed. Behavior: Patient laying in her bed, no agitation. Speech: Patient's speech is hesitant and slow to respond Mood/Affect: Patient reports feeling "good", affect is congruent and constricted. Suicidality/Homicidality: Denies Perceptions: Denies visual hallucinations or auditory hallucinations Though content/process: Patient was more verbal today and communicative. Patient was goal oriented and more logical. Hesitant. Memory and concentration: Alert and oriented 3, Improving attention span. Judgment and insight: poor, improving mildly Assessment Bipolar disorder, currently in manic episode with psychotic features Plan: -Patient is admitted under involuntary status to [facility] for stabilization of psychiatric symptoms and safety. Patient declined signing the adult voluntary form and declined signing medication consent form. Patient signed deferral for treatment on 09/04/2019. -Medications : Will continue with Lamictal 50 mg daily at bedtime for mood stabilization/depression with plan to titrate up as needed. We'll increase Abilify 12.5 mg daily for mood stabilization. Continue with Melatonin 5 mg daily at bedtime for sleep. BuSpar 7.5 mg twice a day when necessary for anxiety. -Will plan to give Abilify maintainna injection once patient is stabilized on PO. -Haldol PRN for agitation/aggression -NRT -need to his patient does not smoke. -SW on board for discharge planning. likely discharge in 2-3 days once patient is stabilized on current medication and given Abilify Maintenna injection
[2019-09-10] MEDS: lamoTRIgine 25 MG TAB PO SCH (22:06)
[2019-09-10] MEDS: MELATONIN 5 MG TABLET PO SCH (22:07)
[2019-09-11] MEDS: ARIPiprazole 5 MG TAB PO SCH (09:53)
[2019-09-11] MEDS: LEVOTHYROXINE 88 MCG TAB PO SCH (09:53)
[2019-09-11] MEDS: CHOLECALCIFEROL 1,000 UNIT TAB PO SCH ×2 (09:53→20:35)
[2019-09-11] MEDS: MAGNESIUM OXIDE 400 MG TAB PO SCH (09:53)
[2019-09-11] MEDS: LACTOBACILLUS ACIDOPH & BULGAR 1 EACH PACKET PO SCH ×2 (09:53→20:36)
[2019-09-11] MEDS: MULTIVITAMINS, THERA 1 EACH TAB PO SCH (09:54)
[2019-09-11] MEDS: ALBUTEROL INHALER 60 PUFF/8 GM INHALER INHALATION SCH ×3 (10:05→20:36)
--- NOTE | 2019-09-11 11:23 | P.PN ---
Progress Note - Text Progress Note Date: 09/11/19 Interval History: Patient was seen at her bedside sitting down and was agreeable to speak to irina bower in the office. patient was more cooperative today and not responding to internal stimuli. She claimed that her came to visit her over the weekend twice. Patient was focused on discharge today and focused on receiving her Abilify Maintenna injection. Patient also appeared to be paranoid and spoke about not trusting people in the groups. She was asked to attend groups as best as she could today however patient was superficial and showed no motivation. She also stated that she is refusing to shower in the hospitalat this time as she does not trust the shower room. patient has been mainly staying in her room and reading the Bible. Patient was oriented 3 today and was able to spell "world" backwards. She claims that her mood is "fine" however continues to have anxiety. She states that she slept most of the night with some interruptions. Today patient claims that she has many internal thoughts and her own voice when asked about auditory hallucinations. Patient denies any visual hallucinations at this time. She denies any suicidal or homicidal ideations intent or plan. Mental Status Exam: General Appearance: Patient appears to be stated age is alert, attempts to co operate. has a blank face, fair hygiene and grooming. Patient was laying in the bed. Behavior: Patient laying in her bed, no agitation. Speech: Patient's speech is hesitant and slow to respond Mood/Affect: Patient reports feeling "fine", affect is congruent and blunted affect Suicidality/Homicidality: Denies Perceptions: Denies visual hallucinations. "my own thoughts" when asked about auditory hallucinations. Though content/process: Patient was more verbal today and communicative. Patient was goal oriented and more logical. Hesitant. paranoia. Memory and concentration: Alert and oriented 3, fair attention span. Judgment and insight: poor, improving mildly Assessment Bipolar disorder, currently in manic episode with psychotic features Plan: -Patient is admitted under involuntary status to [facility] for stabilization of psychiatric symptoms and safety. Patient declined signing the adult voluntary form and declined signing medication consent form. Patient signed deferral for treatment on 09/04/2019. -Medications : Will increase Lamictal 50 mg nightly + 25mg daily for mood stabilization/depression with plan to titrate up as needed. We'll continue with Abilify 12.5 mg daily for mood stabilization. Continue with Melatonin 5 mg daily at bedtime for sleep. scheduled BuSpar 7.5 mg twice a day for anxiety. -Will plan to give Abilify maintainna injection once patient is stabilized on PO . likely in 1-2 days. -Haldol PRN for agitation/aggression -NRT -need to his patient does not smoke. -SW on board for discharge planning. likely discharge in 2-3 days once patient is stabilized on current medication and given Abilify Maintenna injection. Regulatory Affairs Analyst spoke with over the phone who states that patient is less confused and "not cycling like she used to" however states that patient is paranoid and not at her baseline at this time.
[2019-09-11] MEDS: busPIRone HCl 5 MG TAB PO SCH ×2 (11:39→20:35)
[2019-09-11] MEDS: lamoTRIgine 25 MG TAB PO SCH (20:34)
[2019-09-11] MEDS: MELATONIN 5 MG TABLET PO SCH (20:34)
[2019-09-12] MEDS: LEVOTHYROXINE 88 MCG TAB PO SCH (06:07)
[2019-09-12] MEDS: busPIRone HCl 5 MG TAB PO SCH ×2 (08:12→20:51)
[2019-09-12] MEDS: CHOLECALCIFEROL 1,000 UNIT TAB PO SCH ×2 (08:13→20:50)
[2019-09-12] MEDS: MAGNESIUM OXIDE 400 MG TAB PO SCH (08:13)
[2019-09-12] MEDS: ARIPiprazole 5 MG TAB PO SCH (08:13)
[2019-09-12] MEDS: MULTIVITAMINS, THERA 1 EACH TAB PO SCH (08:14)
[2019-09-12] MEDS: ALBUTEROL INHALER 60 PUFF/8 GM INHALER INHALATION SCH ×3 (08:15→21:00)
[2019-09-12] MEDS: LACTOBACILLUS ACIDOPH & BULGAR 1 EACH PACKET PO SCH ×2 (08:17→20:52)
[2019-09-12] MEDS ORDERED: lamoTRIgine 25 MG TAB PO SCH (09:00)
--- NOTE | 2019-09-12 11:25 | P.PN ---
Progress Note - Text Progress Note Date: 09/12/19 Interval History: Patient was seen wandering the hallways after group and was agreeable to speak to telegraphic typewriter repairer in the office. patient appeared to be more cooperative today and not responding to internal stimuli however was focused on discharge during the interview. Patient spoke about having financial troubles at home and was requesting to have financial brochures for help. Patient continues to appear to be anxious and paranoid during the interview. She claims that her will be visiting her tomorrow on the unit. Patient was agreeable to have her Abilify titrated up and receive the Abilify injection tomorrow. she did state that she is attempting to go to more groups however has been mainly isolative in her room. Patient was speaking about God and the Bible. patient is continuing to state that she is refusing to shower in the hospital that she does not trust others. Patient was oriented 3 today. She claims that her mood is "alright" however continues to have anxiety. She states that she slept most of the night with some interruptions. Patient continues to state that she has many internal thoughts and hears her own voice talking to her when asked about auditory hallucinations. Patient denies any visual hallucinations at this time. She denies any suicidal or homicidal ideations intent or plan. Mental Status Exam: General Appearance: Patient appears to be stated age is alert, attempts to cooperate. has a blank face, fair hygiene and grooming. Patient was laying in the bed. Behavior: Patient laying in her bed, no agitation. Speech: Patient's speech is hesitant and slow to respond, improving mildly. Mood/Affect: Patient reports feeling "alright", affect is congruent and constricted. Suicidality/Homicidality: Denies Perceptions: Denies visual hallucinations. patient states that she hears "my own thoughts" when asked about auditory hallucinations. Though content/process: Patient was more verbal today and communicative. Patient was goal oriented and more logical. paranoia, mildly improving. Memory and concentration: Alert and oriented 3, fair attention span. Judgment and insight: poor, improving mildly Assessment Bipolar disorder, currently in manic episode with psychotic features Plan: -Patient is admitted under involuntary status to MHU for stabilization of psychiatric symptoms and safety. Patient declined signing the adult voluntary form and declined signing medication consent form. Patient signed deferral for treatment on 09/04/2019. -Medications : Will increase Lamictal 50 mg nightly + 50mg daily for mood stabilization/depression with plan to titrate up as needed. We'll increase Abilify 15 mg daily for mood stabilization. Continue with Melatonin 5 mg daily at bedtime for sleep. scheduled BuSpar 7.5 mg twice a day for anxiety. -Will plan to give Abilify maintainna injection tomorrow. -Haldol PRN for agitation/aggression -NRT -need to his patient does not smoke. -SW on board for discharge planning. likely discharge in 1-2 days. Will discharge once patient is stabilized on current medication and given Abilify Maintenna injection. to visit patient tomorrow night prior to discharge.
[2019-09-12 13:54] VITALS: BMI 32.1
[2019-09-12] MEDS: MAGNESIUM HYDROXIDE 2,400 MG/10 ML CUP PO PRN (19:08)
[2019-09-12] MEDS: lamoTRIgine 25 MG TAB PO SCH (20:51)
[2019-09-12] MEDS: MELATONIN 5 MG TABLET PO SCH (20:52)
[2019-09-13] MEDS: LEVOTHYROXINE 88 MCG TAB PO SCH (06:25)
[2019-09-13 07:01] VITALS: RESP 16
[2019-09-13] MEDS: MULTIVITAMINS, THERA 1 EACH TAB PO SCH (08:28)
[2019-09-13] MEDS: ALBUTEROL INHALER 60 PUFF/8 GM INHALER INHALATION SCH ×3 (08:28→22:16)
[2019-09-13] MEDS: CHOLECALCIFEROL 1,000 UNIT TAB PO SCH ×2 (08:29→22:18)
[2019-09-13] MEDS: MAGNESIUM OXIDE 400 MG TAB PO SCH (08:29)
[2019-09-13] MEDS: ARIPiprazole 15 MG TAB PO SCH (08:29)
[2019-09-13] MEDS: busPIRone HCl 5 MG TAB PO SCH ×2 (08:29→22:18)
[2019-09-13] MEDS: lamoTRIgine 25 MG TAB PO SCH ×2 (08:29→22:19)
[2019-09-13] MEDS: LACTOBACILLUS ACIDOPH & BULGAR 1 EACH PACKET PO SCH ×2 (08:31→22:18)
--- NOTE | 2019-09-13 11:29 | P.PN ---
Progress Note - Text Progress Note Date: 09/13/19 Interval History: Patient was seen this morning sitting at the side of her bed and was agreeable to speak to sheet writer. patient appeared to be more cooperative this morning with improved attention span. Patient was again focused on discharge and asked if she could be discharged today as "Yohana been here for too long and miss home". Patient also spoke about her financial issues which she is trying to sort out with her and her before the new year. She states that she spoke with her over the phone and will be seeing him tonight for visitation. She appears to be less paranoid today and states that she feels the staff and people on the unit are "here to help me". Patient was agreeable to have her Abilify Maintenna injection today and understands that the dose will be increased to 400mg. she states that she has been going to groups whenever she can and has been attempting to participate. Patient was oriented 3 today and was able to name the past 3 presidents. She claims that her mood is "good" and has improvement in her anxiety. She states that she slept most of the night with some interruptions. Patient denies any auditory or visual hallucinations at this time. She denies any suicidal or homicidal ideations intent or plan. Mental Status Exam: General Appearance: Patient appears to be stated age is alert, attempts to cooperate. Fair hygiene and grooming. Patient was sitting at side of bed Behavior: Patient sitting at side of bed, no agitation. Cooperative Speech: Patient's speech is improving mildly. Mood/Affect: Patient reports feeling "good", affect is congruent and constricted. Suicidality/Homicidality: Denies Perceptions: Denies visual hallucinations. patient denies any auditory hallucinations. Though content/process: Patient was more verbal today and communicative. Patient was goal oriented and more logical. focused on discharge Memory and concentration: Alert and oriented 3, fair attention span. Judgment and insight: improving mildly Assessment Bipolar disorder, currently in manic episode with psychotic features Plan: -Patient is admitted under involuntary status to [facility]HU for stabilization of psychiatric symptoms and safety. Patient declined signing the adult voluntary form and declined signing medication consent form. Patient signed deferral for treatment on 09/04/2019. -Medications : Will continue with Lamictal 50 mg nightly + 50mg daily for mood stabilization/depression with plan to titrate up as needed. We'll continue with Abilify PO 15 mg daily for mood stabilization. Continue with Melatonin 5 mg daily at bedtime for sleep. scheduled BuSpar 7.5 mg twice a day for anxiety. Will give Abilify maintainna injection 400mg today. -Haldol PRN for agitation/aggression -NRT -need to his patient does not smoke. -SW on board for discharge planning. likely discharge tomorrow home. To follow up with Dr. Stewart psychiatrist upon discharge.
[2019-09-13] MEDS ORDERED: ARIPiprazole IM SYRINGE 400 MG (NO CHARGE) IM ONE (12:30)
[2019-09-13] MEDS: MELATONIN 5 MG TABLET PO SCH (22:19)
[2019-09-14] MEDS: LEVOTHYROXINE 88 MCG TAB PO SCH (06:27)
[2019-09-14 07:24] VITALS: TEMP 97.9
[2019-09-14] MEDS: ALBUTEROL INHALER 60 PUFF/8 GM INHALER INHALATION SCH ×2 (09:01→12:49)
[2019-09-14] MEDS: LACTOBACILLUS ACIDOPH & BULGAR 1 EACH PACKET PO SCH ×2 (09:05→09:13)
[2019-09-14] MEDS: ARIPiprazole 15 MG TAB PO SCH (09:05)
[2019-09-14] MEDS: busPIRone HCl 5 MG TAB PO SCH (09:05)
[2019-09-14] MEDS: CHOLECALCIFEROL 1,000 UNIT TAB PO SCH (09:05)
[2019-09-14] MEDS: lamoTRIgine 25 MG TAB PO SCH (09:06)
[2019-09-14] MEDS: MULTIVITAMINS, THERA 1 EACH TAB PO SCH (09:06)
[2019-09-14] MEDS: MAGNESIUM OXIDE 400 MG TAB PO SCH (09:06)
[2019-09-14 09:15] VITALS: BP 125/56; PULSE 74
--- NOTE | 2019-09-14 09:52 | P.DS ---
Providers Date of admission: 08/24/19 03:17 Expected date of discharge: 09/14/19 Attending physician: Robert Goss MD Consults: 08/24/19 03:20 Consult Physician Routine Consulting Provider: Addie Miguel Consult Reason/Comments: H & P Do you want consulting provider notified?: Yes, Notify in am Primary care physician: Yeison He - Discharge Diagnosis(es) (1) Bipolar disorder, current episode manic severe with psychotic features Current Visit: Yes Status: Acute Priority: High Hospital Course: Admission HPI: Patient is a 68-year-old female who currently lives with her in a house has a history of bipolar disorder and has 1 daughter. Patient presented to the hospital yesterday with complaints of being aggressive with her and not taking her medications at home. As per ER note, claims that patient was not sleeping and being agitated. Patient was admitted to the [facility] on petition and certification. Patient was agreeable to be seen by sign writer hand today and was somewhat directable however. To be confused during the conversation and was responding to internal stimuli looking around the room. Patient was disorganized at times and her thought content and process. Patient admitted to "yelling at my " and states that she was under financial stress due to the bills for the house. She states that she is having difficulty cleaning and maintaining the house. She states that she has been borrowing money from different sources and finding it difficult to pay them back. When asked about what she's been spending money on she claimed that her has been buying things and she has as well however did not want to much detail. Patient spoke about her medications and states that she was feeling well and stopped taking her Lamictal and claims that she feels guilty about it. She states that she has been getting her Abilify Maintenna long-acting injection 300 mg every month and states that she recently contacted dose on August 16 at her primary care physician's office. She states that her mood has been labile denies any depression at this time. She admitted to having auditory hallucinations stating "accusing voices". She admits to poor sleep and poor appetite. Patient has multiple delusions about guilt.Patient denies any suicidal or homicidal ideations intent or plan. At this time patient denies any visual hallucinations. Patient denies using any illicit substances at this time. She denies any alcohol or cigarettes. Hospital course: Upon admission to the unit patient was initially psychotic, disorganized and responding to internal stimuli. Patient was not engaging in treatment initially and was not taking medications by mouth. Patient did however take Depakene syrup and Haldol which improved patient's mental status however patient appeared to have EPS symptoms, muscle stiffness and had a flat affect however was more cooperative and less bizarre. At that time patient was transitioned onto Abilify by mouth which was titrated up to a dose of 15 mg daily for psychosis/mood stabilization. Patient was given a dose of 400 mg IM of Abilify Maintenna on 09/13/2019 and tolerated it well and will be due for her next Abilify Maintenna dose of 400 mg on 10/11/2019. Patient was also started on Lamictal by mouth and titrated up to a dose of 100 mg daily for mood stabilization. Haldol and Depakene were titrated off. Patient was initially involuntary on the unit and was given referral meeting with the consumer attorney and patient agreed to treatment, signing the deferral on 09/04/2019. Patient gradually progressed while on the unit and got along well with other patients on the unit and followed unit protocol. Patient spoke of her stressors and engaged in therapy both group and individual. Patient was also seen by medical team for history and physical exam. A chest x-ray was ordered on 08/24/2019 for shortness of breath and possible pneumonia however no suspicious acute pulmonary infiltrate was seen on x-ray. Patient was given a short course of Levaquin antibiotic during her hospitalization. Throughout the course of the hospitalization patient gradually improved with regards to mood, psychosis, anxiety, sleep and became future oriented with improved insight and judgment. On the day of discharge patient denied any suicidal or homicidal ideations intent or plan denied any auditory or visual hallucinations. Patient endorsed wanting to live for her health and her . The patient denied any access to guns or weapons. Patient denied any paranoia and did not endorse any delusions. Patient does not have a significant history of substance abuse however was counseled on abstaining from all substances including alcohol and marijuana. Patient was also counseled on the medications and need for regular compliance and was encouraged to follow-up with their outpatient appointment for mental health and also for primary care. Prior to discharge a family meeting will be arranged by social service coordinator to answer any questions and ensure safety upon discharge. Mental status exam: General Appearance: Patient appears to be stated age is alert, directable and cooperative. Patient is in no acute distress and has fair hygiene and grooming Behavior: Patient is calmly seated without any agitated behavior. Speech: Patient's speech is fluent and nonpressured. Mood/Affect: Patient reports their mood is "better", affect is congruent and euthymic. Suicidality/Homicidality: Patient denies having any suicidal or homicidal ideation intent or plan. Perceptions: Patient denies any auditory or visual hallucinations. Though content/process: There is no evidence of any delusional thought content and thought process is linear and goal-directed. Memory and concentration: AOX3, grossly intact for the purposes of this session. Can spell "WORLD" backwards correctly. Judgment and insight: fair, improved Impression: Bipolar disorder type I, severe, manic episode with psychotic features Plan: -Continue with discharge today as patient has improved and stabilized psychiatrically and is not currently an imminent threat to herself and/or others. -Continue medications: Patient to continue on Abilify by mouth 15 mg daily for 13 days and then it is to be discontinued. Patient was given a dose of 400 mg IM of Abilify Maintenna on 09/13/2019 and tolerated it well and will be due for her next Abilify Maintenna dose of 400 mg on 10/11/2019. Continue with Lamictal 100 mg daily for mood stabilization, melatonin 5 mg nightly for sleep. Patient requested to be off and have BuSpar discontinued. -Patient was counseled about her vitamins/supplements and to review these with her outpatient psychiatrist and primary care physician. Patient also was advised to avoid anticholinergic medication including Benadryl at nighttime as it may worsen her symptoms and confusion. -Patient was counseled on the need for medication compliance and appropriate follow-up at mental health and also primary care for medical issues. Patient verbalized understanding and agreed. -Social work to arrange for and conduct family meeting to ensure safety upon discharge and answer any questions/concerns. Social work also to arrange for patients follow up appointments with Dr. Stewart for psychiatric care along with follow up with primary care provider. -Patient counseled on abstaining from recreational drugs and marijuana and alcohol. Was informed/educated on the adverse effects on their physical and mental health. Patient verbally agreed and understood -Patient was instructed to return to the hospital or seek immediate medical care if their psychiatric or medical symptoms do worsen or reoccur. Allergies Allergy/AdvReac Type Severity Reaction Status Date / Time alendronate sodium Allergy Rash/Hives Verified 08/23/19 23:48 [From Fosamax] amoxicillin Allergy Rash/Hives Verified 08/23/19 23:48 guaifenesin [From Robitussin] Allergy Rash/Hives Verified 08/23/19 23:48 ibandronate sodium Allergy Rash/Hives Verified 08/23/19 23:48 [From Boniva] Laboratory Results WBC 8.1 k/uL (3.8-10.6) 08/28/19 07:35 RBC 4.71 m/uL (3.80-5.40) 08/28/19 07:35 Hgb 13.4 gm/dL (11.4-16.0) 08/28/19 07:35 Hct 42.2 % (34.0-46.0) 08/28/19 07:35 MCV 89.5 fL (80.0-100.0) 08/28/19 07:35 MCH 28.5 pg (25.0-35.0) 08/28/19 07:35 MCHC 31.8 g/dL (31.0-37.0) 08/28/19 07:35 RDW 12.9 % (11.5-15.5) 08/28/19 07:35 Plt Count 318 k/uL (150-450) 08/28/19 07:35 Neutrophils % 68 % 08/28/19 07:35 Lymphocytes % 15 % 08/28/19 07:35 Monocytes % 9 % 08/28/19 07:35 Eosinophils % 4 % 08/28/19 07:35 Basophils % 1 % 08/28/19 07:35 Neutrophils # 5.5 k/uL (1.3-7.7) 08/28/19 07:35 Lymphocytes # 1.2 k/uL (1.0-4.8) 08/28/19 07:35 Monocytes # 0.7 k/uL (0-1.0) 08/28/19 07:35 Eosinophils # 0.3 k/uL (0-0.7) 08/28/19 07:35 Basophils # 0.1 k/uL (0-0.2) 08/28/19 07:35 Sodium 141 mmol/L (137-145) 08/28/19 07:35 Potassium 4.3 mmol/L (3.5-5.1) 08/28/19 07:35 Chloride 105 mmol/L (98-107) 08/28/19 07:35 Carbon Dioxide 27 mmol/L (22-30) 08/28/19 07:35 Anion Gap 9 mmol/L 08/28/19 07:35 BUN 17 mg/dL (7-17) 08/28/19 07:35 Creatinine 0.98 mg/dL (0.52-1.04) 08/28/19 07:35 Est GFR (CKD-EPI)AfAm 68 (>60 ml/min/1.73 sqM) 08/28/19 07:35 Est GFR (CKD-EPI)NonAf 59 (>60 ml/min/1.73 sqM) 08/28/19 07:35 Glucose 109 mg/dL (74-99) H 08/28/19 07:[address] Glu mg/dL 117 08/24/19 08:30 Hemoglobin A1c 5.7 % (4.0-6.0) 08/24/19 08:30 Calcium 10.3 mg/dL (8.4-10.2) H 08/28/19 07:35 Total Bilirubin 0.6 mg/dL (0.2-1.3) 08/28/19 07:35 Conjugated Bilirubin 0.0 mg/dL (0.0-0.3) 08/24/19 08:30 Unconjugated Bilirubin 0.5 mg/dL (0.0-1.1) 08/24/19 08:30 Delta Bilirubin 0.3 mg/dL (0.0-0.2) H 08/24/19 08:30 AST 40 U/L (14-36) H 08/28/19 07:35 ALT 28 U/L (9-52) 08/28/19 07:35 Alkaline Phosphatase 55 U/L (38-126) 08/28/19 07:35 Total Protein 6.9 g/dL (6.3-8.2) 08/28/19 07:35 Albumin 4.0 g/dL (3.5-5.0) 08/28/19 07:35 Triglycerides 75 mg/dL (<150) 08/24/19 08:30 Cholesterol 201 mg/dL (<200) H 08/24/19 08:30 LDL Cholesterol, Calc 101 mg/dL (0-99) H 08/24/19 08:30 HDL Cholesterol 85 mg/dL (40-60) H 08/24/19 08:30 TSH 4.050 mIU/L (0.465-4.680) 08/24/19 01:40 Urine Color Light Yellow 08/25/19 12:00 Urine Appearance Clear (Clear) 08/25/19 12:00 Urine pH 5.5 (5.0-8.0) 08/25/19 12:00 Ur Specific Harrod 1.004 (1.001-1.035) 08/25/19 12:00 Urine Protein Negative (Negative) 08/25/19 12:00 Urine Glucose (UA) Negative (Negative) 08/25/19 12:00 Urine Ketones 1+ (Negative) H 08/25/19 12:00 Urine Blood Negative (Negative) 08/25/19 12:00 Urine Nitrite Negative (Negative) 08/25/19 12:00 Urine Bilirubin Negative (Negative) 08/25/19 12:00 Urine Urobilinogen <2.0 mg/dL (<2.0) 08/25/19 12:00 Ur Leukocyte Esterase Negative (Negative) 08/25/19 12:00 Urine Opiates Screen Negative ng/mL (Negative) 08/25/19 12:00 Urine Methadone Screen Negative ng/mL (Negative) 08/25/19 12:00 Ur Propoxyphene Screen Negative ng/mL (Negative) 08/25/19 12:00 Urine Barbiturates Negative ng/mL (Negative) 08/25/19 12:00 Valproic Acid 27.7 ug/mL 09/05/19 08:21 Free Valproic Acid 5.6 mg/L (4.8-17.3) 09/01/19 08:50 Ur Phencyclidine Scrn Negative ng/mL (Negative) 08/25/19 12:00 Ur Amphetamine Screen Negative ng/mL (Negative) 08/25/19 12:00 U Benzodiazepines Scrn Negative ng/mL (Negative) 08/25/19 12:00 Urine Cocaine Screen Negative ng/mL (Negative) 08/25/19 12:00 U Cannabinoids Screen Negative ng/mL (Negative) 08/25/19 12:00 Urine Alcohol Negative mg/dL (Negative) 08/25/19 12:00 Vital Signs Temp 97.9 F 09/14/19 06:45 Pulse 74 09/14/19 09:14 Resp 16 09/14/19 09:14 BP 125/56 09/14/19 09:14 Pulse Ox 96 09/14/19 09:14 Patient Condition at Discharge: Stable Plan - Discharge Summary Discharge Rx Participant: No New Discharge Prescriptions: New ARIPiprazole [Abilify] 15 mg PO DAILY 13 Days tab ARIPiprazole IM [Abilify Maintena] 400 mg IM ONCE #1 each Melatonin 5 mg PO HS 28 Days tablet Albuterol Inhaler [Ventolin Hfa Inhaler] 2 puff INHALATION RT-TID puff Cholecalciferol [Vitamin D3 (25 Mcg = 1000 Iu)] 2,000 unit PO BID tab Continue L.acidoph,Paracasei, B.lactis [Probiotic] 1 cap PO BID Multivitamins, Thera [Multivitamin (formulary)] 1 tab PO DAILY #30 tab Levothyroxine Sodium [Synthroid] 88 mcg PO DAILY #14 tablet Magnesium Oxide [Wood] 500 mg PO DAILY Changed lamoTRIgine [LaMICtal] 100 mg PO DAILY #28 tab Discontinued Lutein-Zeaxanthin 25mg-5mg 1 cap PO DAILY Vitamin B Complex 1 cap PO DAILY Calcium Citrate 500 mg PO BID Cholecalciferol (Vitamin D3) [Vitamin D3] 2,000 unit PO BID Kelp 150mcg 150 mcg PO DAILY ARIPiprazole [Abilify Maintena] 300 mg IM Q28D Turmeric Root Extract [Turmeric] 500 mg PO DAILY Discharge Medication List L.acidoph,Paracasei, B.lactis [Probiotic] 1 cap PO BID 12/07/15 [History] Levothyroxine Sodium [Synthroid] 88 mcg PO DAILY #14 tablet 01/01/16 [Rx] Multivitamins, Thera [Multivitamin (formulary)] 1 tab PO DAILY #30 tab 01/01/16 [Rx] Magnesium Oxide [Wood] 500 mg PO DAILY 08/23/19 [History] ARIPiprazole IM [Abilify Maintena] 400 mg IM ONCE #1 each 09/14/19 [Rx] ARIPiprazole [Abilify] 15 mg PO DAILY 13 Days tab 09/14/19 [Rx] Albuterol Inhaler [Ventolin Hfa Inhaler] 2 puff INHALATION RT-TID puff 09/14/19 [Rx] Cholecalciferol [Vitamin D3 (25 Mcg = 1000 Iu)] 2,000 unit PO BID tab 09/14/19 [Rx] Melatonin 5 mg PO HS 28 Days tablet 09/14/19 [Rx] lamoTRIgine [LaMICtal] 100 mg PO DAILY #28 tab 09/14/19 [Rx] Follow up Appointment(s)/Referral(s): Jazmin Sweeney [Other] - 10/03/19 1:30 pm (Dr. Sweeney) Yeison He DO [Primary Care Provider] - 1-2 days Patient Instructions/Handouts: Bipolar Disorder (DC), Brief Psychotic Disorder (DC) Activity/Diet/Wound Care/Special Instructions: Activity and diet as tolerated. Avoid the use of street drugs and alcohol. Take all medications as prescribed. When you are in need of refills on your medications please contact your medical provider and/or outpatient psychiatrist to have this done. Please go to scheduled outpatient appointment for aftercare treatment. If symptoms return or become worse, call the crisis line at and/or go to the nearest emergency room for evaluation. Discharge Disposition: HOME SELF-CARE
== END 2019-09-14 14:47 | disposition home or self-care (01) | DRG 885 ==
LOC: EC 22:29 → 3MHU 08-24 03:17
PROVIDERS: ADMIT Psychiatry & Neurology Psychiatry; ATTEND Psychiatry & Neurology Psychiatry
DX: F31.2 Bipolar disorder, current episode manic severe with psychotic features (principal); Z91.128 Patient's intentional underdosing of medication regimen for other reason; E03.9 Hypothyroidism, unspecified; F41.9 Anxiety disorder, unspecified; T50.916A Underdosing of multiple unspecified drugs, medicaments and biological substances, initial encounter; I71.9 Aortic aneurysm of unspecified site, without rupture; I10 Essential (primary) hypertension; K59.00 Constipation, unspecified; K80.20 Calculus of gallbladder without cholecystitis without obstruction; E78.5 Hyperlipidemia, unspecified; I83.90 Asymptomatic varicose veins of unspecified lower extremity; R91.8 Other nonspecific abnormal finding of lung field; H91.90 Unspecified hearing loss, unspecified ear; Z79.890 Hormone replacement therapy; Z79.899 Other long term (current) drug therapy; Z98.84 Bariatric surgery status; Z90.49 Acquired absence of other specified parts of digestive tract; Z98.890 Other specified postprocedural states; Z91.5 Personal history of self-harm; Z59.9 Problem related to housing and economic circumstances, unspecified; Z88.0 Allergy status to penicillin; Z88.8 Allergy status to other drugs, medicaments and biological substances; Z82.49 Family history of ischemic heart disease and other diseases of the circulatory system; Y63.6 Underdosing and nonadministration of necessary drug, medicament or biological substance
CPT/HCPCS: 36415; 71045; 80048; 80053; 80061; 80164; 80165; 80306; 81003; 82075; 82248; 83036; 84443; 85025; 99285

== ENCOUNTER → 2020-03-07 | Outpatient (CLI) | payer MEDICARE ==
--- NOTE | 2020-03-07 13:11 | CT ---
EXAMINATION TYPE: CTA chest DATE OF EXAM: 03/07/2020 COMPARISON: 11/09/2016 HISTORY: 69 year-old female with thoracic aortic aneurysm without rupture, I71.2, Follow up scan per patient TECHNIQUE: Contiguous axial scanning of the chest after the administration of 80 mL of Isovue 370. C oronal/sagittal MIP reconstructions performed. 3-D reconstructions generated on a dedicated [employer] workstation. CT DLP: 434.5mGycm. Automatic exposure control utilized for a dose reduction. FINDINGS: Heart normal size without pericardial effusion. Aorta is normal caliber at 3.4 cm. Ascending aorta ectatic at 3.8 cm, unchanged. Conventional arch vessel branching anatomy. Mildly ectatic upper descending thoracic aorta at 2.8 cm, unchanged. Mild atherosclerotic calcifications throughout the thoracic aorta. No thoracic lymphadenopathy by CT size criteria. Minimal biapical pleural parenchymal scarring. Some strandy atelectasis at the left base. No consolid ation or pleural effusion. Small hiatal hernia. Some postsurgical changes at the GE junction. Suggestion of a tiny cortical cyst lateral right kidney. Numerous layering gallstones measuring 9 mm. Bones: Degenerative disc disease lower thoracic spine progressed from 2017. IMPRESSION: 1. Stable ascending aortic ectasia at 3.8 cm and upper descending thoracic aortic ectasia at 2.8 cm. 2. Small hiatal hernia with some postsurgical change noted at the GE junction. Correlate as to the jones rgery that was performed. 3. Cholelithiasis.
== END | disposition home or self-care (01) ==
LOC: RADCTMAIN 11:12
PROVIDERS: ATTEND Family Medicine
DX: I77.810 Thoracic aortic ectasia (principal); Z01.812 Encounter for preprocedural laboratory examination
CPT/HCPCS: 82565; 84520; 71260; 36415; Q9967

== ENCOUNTER → 2020-07-09 | Outpatient (CLI) | payer MEDICARE ==
[2020-07-09 15:42] LABS: HCT 41.2 % (34.0-46.0); HGB 13.2 gm/dL (11.4-16.0); Hypochromasia Slight; MCH 28.9 pg (25.0-35.0); MCV 90.3 fL (80.0-100.0); Mean Platelet Volume 6.4; Platelet Count 256 k/uL (150-450); RBC 4.57 m/uL (3.80-5.40); RDW 13.8 % (11.5-15.5); WBC 7.5 k/uL (3.8-10.6)
[2020-07-09 15:55] LABS: Albumin 4.2 g/dL (3.5-5.0); Calcium 9.7 mg/dL (8.4-10.2); Potassium 4.7 mmol/L (3.5-5.1); Total Bilirubin 0.6 mg/dL (0.2-1.3); Total Protein 6.9 g/dL (6.3-8.2)
[2020-07-09 15:57] LABS: INR 0.9 (<1.2); Partial Thromboplastin Time 24.6 sec (22.0-30.0); Prothrombin Time 9.8 sec (9.0-12.0)
[2020-07-09 17:01] LABS: Appearance,Urine Clear (Clear); Bilirubin,Urine Negative (Negative); Blood,Urine Negative (Negative); Color,Urine Yellow; Glucose,Urine (UA) Negative (Negative); Ketones,Urine Negative (Negative); Leukocyte Esterase,Urine Large (Negative); Mucus,Urine Rare /hpf; Nitrite,Urine Negative (Negative); Protein,Urine Negative (Negative); RBC,Urine 1 /hpf (0-5); Specific Gravity,Urine 1.022 (1.001-1.035); Squamous Epithelial Cell,Urine <1 /hpf (0-4); Urobilinogen,Urine <2.0 mg/dL (<2.0); WBC,Urine 21 /hpf (0-5)
== END | disposition home or self-care (01) ==
LOC: LABPAT 14:40
PROVIDERS: ATTEND Orthopaedic Surgery Sports Medicine
DX: Z01.818 Encounter for other preprocedural examination (principal); M17.11 Unilateral primary osteoarthritis, right knee; Z79.01 Long term (current) use of anticoagulants; Z01.812 Encounter for preprocedural laboratory examination
CPT/HCPCS: 36415; 80053; 81001; 85027; 85610; 85730; 87070; 93005

== ENCOUNTER 2020-07-18 07:34 | Day surgery (SDC) | payer MEDICARE ==
[2020-07-15 12:21] VITALS: BMI 32.5
[~2020-07-18 07:34] MED LIST: ACETAMINOPHEN TAB 500 MG TAB PO ONE; DEXAMETHASONE SOD PHOSPHATE 10 MG/ML 1 ML VIAL IV ONE; GABAPENTIN 300 MG CAP PO ONE; MELOXICAM 7.5 MG TAB PO ONE; MIDAZOLAM 2 MG/2 ML VIAL IV PRN; ONDANSETRON 4 MG/2 ML VIAL IVP ONE; TRANEXAMIC ACID 1,000 MG in SODIUM CHLORIDE 0.9% 100 ML IVPB ONE
[2020-07-18] MEDS: LACTATED RINGERS 1,000 ML IV SCH ×3 (08:10→21:19)
[2020-07-18] MEDS ORDERED: LIDOCAINE 1% (10MG/ML) FOR IV START INTRADERMA ONE (08:20)
[2020-07-18] MEDS ORDERED: ROPIVACAINE 0.2%-NS ON-Q PUMP 1,090 MG, EMPTY PAIN BALL 1 EACH MISCELLANE PRN (08:46)
--- NOTE | 2020-07-18 08:46 | P.ANPRN ---
Procedure Note - Anesthesia - Nerve Block Performed Left Adductor Canal Infusion Time Out Performed: Yes ([id number]) Date of Procedure: 07/18/20 Procedure Start Time: : Procedure Stop Time: :33 Location of Patient: PreOp Indication: Acute Post-Operative Pain, Analgesia, Requested by Surgeon Specifically requested for management of pain by : Gurvinder Sandoval Sedation Type: Sedate with meaningful contact maintained Preparation: Sterile Prep, Sterile Dressing Position: Supine Catheter: Indwelling Needle Types: Pajunk Needle Gauge: 18 Ultrasound used to visualize needle placement: Yes Ultrasound used to observe medication spread: Yes Injectate: 0.5% Ropivacaine (see comment for volume) (20 mL) Blood Aspirated: No Pain Paresthesia on Injection Noted: No Resistance on Injection: Normal Image Stored and Saved: Yes Events: Uneventful and Well Tolerated
[2020-07-18] MEDS ORDERED: PROPOFOL 10 MG/ML 20 ML VIAL IV ONE (09:21)
[2020-07-18] MEDS ORDERED: MIDAZOLAM 2 MG/2 ML VIAL ONE (09:21)
[2020-07-18] MEDS ORDERED: fentaNYL (PF) 50 MCG/ML 2 ML AMP ONE (09:21)
[2020-07-18] MEDS ORDERED: SUCCINYLCHOLINE CHLORIDE 100 MG/5 ML SYR IV ONE (09:21)
[2020-07-18] MEDS ORDERED: TRANEXAMIC ACID 1,000 MG/10 ML VIAL ONE (09:21)
[2020-07-18] MEDS ORDERED: LIDOCAINE 1% INJ 10MG/ML (20 ML MDV) ONE (09:21)
[2020-07-18] MEDS ORDERED: SODIUM CHLORIDE 0.9% 100 ML BAG ONE (09:21)
[2020-07-18] MEDS ORDERED: NA PHOS,M-B/NA PHOS,DI-BA 133 ML ENEMA RECTAL PRN (09:25)
[2020-07-18] MEDS ORDERED: HYDROcodone/APAP 5-325MG 1 EACH TAB PO PRN (09:25)
[2020-07-18] MEDS ORDERED: MAGNESIUM HYDROXIDE 2,400 MG/10 ML CUP PO PRN (09:25)
[2020-07-18] MEDS ORDERED: bisacodyL 10 MG SUPP RECTAL PRN (09:25)
[2020-07-18] MEDS ORDERED: ONDANSETRON 4 MG/2 ML VIAL IVP PRN (09:25)
[2020-07-18] MEDS ORDERED: HYDROmorphone 0.5 MG/0.5 ML SYRINGE IVP PRN ×2 (09:25)
[2020-07-18] MEDS ORDERED: NALOXONE 0.4 MG/ML 1 ML VIAL IV PRN (09:25)
[2020-07-18] MEDS ORDERED: traMADol 50 MG TAB PO PRN (09:25)
[2020-07-18] MEDS ORDERED: TEMAZEPAM 15 MG CAP PO PRN (09:25)
[2020-07-18] MEDS ORDERED: diazePAM 5 MG TAB PO PRN (09:25)
[2020-07-18] MEDS ORDERED: ACETAMINOPHEN TAB 325 MG TAB PO PRN (09:25)
[2020-07-18] MEDS ORDERED: ceFAZolin 3,000 MG in SODIUM CHLORIDE 0.9% IRRIGATIO 3,000 ML IRRIGATION ONE (09:26)
[2020-07-18] MEDS: ROPIVACAINE 246.25 MG, EPINEPHrine 0.5 MG, KETOROLAC 30 MG, cloNIDine HCL/PF 80 MCG, WA... MISCELLANE ONE ×10 (10:00→10:25)
[2020-07-18] MEDS ORDERED: LACTATED RINGERS 1,000 ML IV ONE ×2 (10:30→13:36)
[2020-07-18] MEDS: fentaNYL (PF) 50 MCG/ML 2 ML AMP IVP ONE ×2 (11:42→11:51)
[2020-07-18] MEDS ORDERED: MEPERIDINE 50 MG/ML SYRINGE IVP ONE (11:46)
--- NOTE | 2020-07-18 11:56 | XR ---
EXAMINATION TYPE: XR knee limited LT DATE OF EXAM: 07/18/2020 COMPARISON: NONE TECHNIQUE: Two views submitted HISTORY: Post op FINDINGS: There is a prosthetic knee in near anatomic alignment. There is soft tissue edema and emphysema. IMPRESSION: 1. Postoperative change. Appears in near-anatomic alignment
[2020-07-18] MEDS: HYDROmorphone 0.5 MG/0.5 ML SYRINGE IVP PRN ×4 (12:09→19:21)
--- NOTE | 2020-07-18 15:26 | OP ---
OPERATIVE REPORT DATE OF PROCEDURE: 07/18/2020 SURGEON: Gurvinder Sandoval MD SCAFFOLDER: Caesar Stephens PA-C. PREOPERATIVE DIAGNOSIS: Left knee osteoarthrosis. POSTOPERATIVE DIAGNOSIS: Left knee osteoarthrosis. OPERATION: Left total knee arthroplasty. ANESTHESIA: Spinal with sedation. ESTIMATED BLOOD LOSS: 200 mL. TOURNIQUET TIME: 42 minutes at 250 mmHg. COMPLICATIONS: None apparent. DRAINS: None. DISPOSITION: Post-Anesthesia Care Unit INDICATIONS: Radha is a very pleasant 69-year-old female with longstanding history of left knee pain. History and physical examination are consistent with advanced left knee osteoarthrosis. She has been through significant nonoperative management up to this point. Further treatment options were discussed, and she has decided to go forward with left total knee arthroplasty. The risks of the procedure were discussed with her in detail. These risks include but are not limited to risk of infection, nerve damage, bleeding, pain, and a small risk of deep vein thrombosis which could lead to fatal pulmonary embolism. There is also a risk of loosening of the implant which could require revision operation. The patient understands these risks. All of her questions were answered to her satisfaction, and appropriate informed consent was obtained. DESCRIPTION OF PROCEDURE: Patient was identified in the preoperative holding area. Surgical site was marked by both the patient and myself. She was given 2 grams of Ancef IV for prophylactic purposes. She was then transferred to the operative suite, where she was placed supine on the operating room table. Spinal anesthetic was then administered and dosed per the anesthesia department without apparent complication. Examination under anesthesia was then performed. The patient was 2 to 3 degrees shy of full extension. She had 100 degrees of flexion, and the medial collateral ligament, lateral collateral ligament and posterior cruciate ligaments were stable. Tourniquet was then placed high on the left upper thigh, well padded in preparation for surgery. The patient's left lower extremity was then prepped and draped in the usual sterile fashion. Standard surgical pause was undertaken to ensure that we were operating on the correct site and that appropriate preoperative antibiotics had been given. All staff in the room were in agreement and we proceeded. The outlines of the patella were marked with a surgical pen. A planned 12 cm vertical incision centered over the patella was marked with a surgical pen. The leg was then exsanguinated with an Esmarch dressing. The knee was then flexed and the tourniquet was inflated to 250 mmHg. The total tourniquet time for the procedure was 42 minutes. Incision was then made with a 10-blade scalpel. Dissection was carried down sharply to the overlying fascia. Great care was taken to minimize the skin flaps. The knee was then exposed using a standard medial parapatellar approach. A small cuff of quadriceps tendon was then left for suturing. She was in a bit of varus preoperatively. A very minimal medial release was made. This was done just enough to place the medial retractors. The medial meniscus was then excised as well. The lateral meniscus was also released anteriorly. The leg was then externally rotated. The patella was everted. The knee was flexed. The retractors were then placed to protect the collateral ligaments. I then proceeded to remove the infrapatellar fat pad. This was excised sharply tangentially with the fibers of the patellar tendon. I then proceeded to remove peripheral osteophytes. This was done with a rongeur. I then proceeded with the distal femoral resection. She did have near-full extension. A planned 9 mm resection was then done. The femoral canal was then entered in the midline of the femur, approximately 10 mm anterior to the origin of the posterior cruciate ligament. The mariah was then advanced down the center of the femur and placed intramedullary. Based on the preoperative radiographs, the angle between the anatomic and mechanical axis of the femur was approximately 4-5 degrees. The valgus angle of the distal femoral cutting guide was then set at 4 degrees for the left knee. The distal femoral cutting guide was then advanced over the intramedullary mariah. This was seated firmly against the femur. I then, as mentioned, planned to take 9 mm off the distal femur. The cutting block was then secured onto the femur with pins. The jig was removed. The distal femoral cut was made through the slot of the block. The pins were then removed. The distal femoral cutting block was removed. The accuracy of the distal femoral cuts was checked with 2 flat bars. I then proceeded with femoral sizing. The posterior referencing sizing guide was held firmly against the resected distal surface of the femur. The posterior condyles were resting on the posterior plane of the guide. The sizing stylus was then placed onto the anterior femur. The size was measured as a size 7. I then assessed for femoral rotation. The plan was for 3 degrees of external rotation. Three degrees of external rotation was placed onto the jig. These holes were then marked. I then confirmed the rotation by 3 separate methods. This was done using the epicondylar axis as well as Whitesides line and posterior referencing. It was deemed that the external rotation was proper. I then went forward with placing the femoral cutting block. This was placed over the previously placed pin holes. The Linden wing was then placed on to the anterior slots to ensure that we would not notch the anterior femur with the anterior femoral cut. I then proceeded with the anterior femoral cut. This was flush with the anterior cortex of the femur. The posterior cuts were then made followed by the anterior chamfer cut and then the posterior chamfer cut. The cutting block was then removed. Throughout the resection, the collateral ligaments were protected with retractors. I then placed a trial size 7 femur. It was slightly wide medial-lateral, but the narrow fit very nicely, and it fit flush with the distal end of the femur. The drill holes were then made. I then proceeded with the tibial cut. I planned for cruciate-retaining knee. The guide was placed and set for varus, valgus and for slope. The height was set for an approximate 2 mm resection from the lateral tibial plateau, which was the lower side. I was happy with the alignment and amount of resection. The cutting block was then pinned to the proximal tibia. The alignment mariah was removed and the proximal tibia was resected with a reciprocating saw. Again this was done with retractors protecting the collateral ligaments as well as the posterior cruciate ligament. I then proceeded to evaluate the flexion and extension gaps. A 10 mm block was then placed. The flexion and extension gaps were equal. I then proceeded with resection of the posterior osteophytes. She had very minimal posterior osteophytes. This was done using a curved osteotome. This resected the posterior osteophytes, and posterior capsule stripping was done off the posterior aspect of the femur at this time. The osteophytes were then removed. I then proceeded with resection of patella. The thickness of the patella was measured using the caliper. The thickness was 22 mm. The thickness of the anticipated patellar dome was taken into account. Resection was then performed and confirmed to be equal in 4 quadrants using a caliper. Approximately 14 mm of bone remained after resection. A 31 x 8 mm standard patellar trial was then placed. The holes were drilled and the trial was then placed. I then proceeded with sizing the tibial plate. A size C tibial plate fit very nicely. I then placed the trial femur, the tibial tray and the patellar button. A 10 mm trial tibial insert was also placed. The components fit very nicely. She had full extension and flexion. The extension and flexion gaps were equal and stable to both varus and valgus stress. The patella tracked appropriately. The tibial tray rotation was then marked with a Bovie. This was externally rotated properly. I then proceeded with the tibial preparation. First we drilled femoral holes and removed the femoral component. The tibial tray was then set for proper external rotation as well as mediolateral placement onto the tibia. It was then pinned into place. I then proceeded with punching the keel. I then decided to proceed with cementing of all of our components. The knee was thoroughly irrigated with sterile saline solution via pulse lavage. The lateral geniculate artery was identified and cauterized. All blood was removed from the bone of the tibia, femur and patella with pulse lavage. I then proceeded with cementing. Two packs of antibiotic bone cement were prepared on the back on the back table by the surgical instruments inspector. I then proceeded with cementing of the tibia first. The cement was impacted in the keel as well as deeply seated into the bone. A second coat of cement was then placed. The tibia was then impacted into place. Excess cement was removed with Koyuk's and jokers. I then proceeded with cementing of the femoral component. The femoral component was also cemented using standard technique. Excess cement was removed. A 10 mm trial insert was then placed into the knee. It was brought into full extension with a constant axial load placed until the cement had hardened. The patellar component was then cemented. This was held firmly with a compressive device until the cement had dried. When the cement had dried, the knee was taken out of extension. All excess cement was removed from around the prosthesis. I then trialed the knee with a 10 mm insert. The flexion and extension gaps were appropriate. The knee was stable. It came into full extension. I decided to go forward with a 10 mm cross-linked cruciate-retaining tibial insert. Polyethylene was then placed onto the tray and locked into place. The knee was then reduced. The knee was again further irrigated with sterile saline solution with antibiotic added. The tourniquet was then deflated. Total tourniquet time for the procedure was 42 minutes at 250 mmHg. Final components were Billy Persona size 7 narrow cruciate-retaining femoral component, a size C tibial tray, a 10 mm medial- congruent cruciate-retaining polyethylene insert and a 29 x 8 mm patella. I then proceeded with closure. Again, the knee was thoroughly irrigated. Quadriceps tendon and the medial retinaculum were reapproximated with #2 Ethibond suture. The extensor mechanism was then closed with a running #2 Quill suture. Subcutaneous tissues were closed with 2-0 Vicryl interrupted suture. The skin was closed with a running 3-0 Quill suture. Dermabond was applied to the incision. Sterile compressive dressing was then applied. All sponge and needle counts were deemed correct prior to closure. The patient tolerated the procedure without apparent complication. She was transferred to the recovery room in stable condition. MMODL / IJN: [id number] /
[2020-07-18 17:48] VITALS: RESP 16
[2020-07-18] MEDS ORDERED: MELATONIN 5 MG TABLET PO SCH (21:00)
[2020-07-18] MEDS ORDERED: SENNOSIDES-DOCUSATE SODIUM 1 EACH TAB PO SCH (21:00)
[2020-07-18] MEDS: ASPIRIN 81 MG PO SCH (21:16)
[2020-07-18] MEDS: CHOLECALCIFEROL 1,000 UNIT TAB PO SCH (21:17)
[2020-07-18] MEDS: HYDROcodone/APAP 10-325MG 1 EACH TAB PO PRN (23:09)
[2020-07-19] MEDS: LACTATED RINGERS 1,000 ML IV SCH ×2 (02:18→06:20)
[2020-07-19] MEDS: HYDROmorphone 0.5 MG/0.5 ML SYRINGE IVP PRN (02:38)
[2020-07-19] MEDS: HYDROcodone/APAP 10-325MG 1 EACH TAB PO PRN ×2 (05:34→11:38)
--- NOTE | 2020-07-19 06:19 | P.PN ---
Progress Note - Text Progress Note Date: 07/19/20 Patient was seen at bedside at [] AM. Patient is postop day 1 from left total knee replacement with adductor canal catheter placed for pain . Ropivacaine 0.2% infusion running at 8 ml per hour. VAS score is 5. Patient denies side effects. Lower extremity sensation and motor function is intact. Patient has ambulated. Dressing clean dry and intact over catheter site
[2020-07-19] MEDS ORDERED: LEVOTHYROXINE 88 MCG TAB PO SCH (06:30)
[2020-07-19 07:38] VITALS: BP 95/59; PULSE 70; TEMP 98.2
[2020-07-19 07:50] LABS: Basophils % (A) 0 %; Eosinophils # (A) 0.1 k/uL (0-0.7); Eosinophils % (A) 1 %; HCT 30.5 % (34.0-46.0); Hypochromasia Slight; Lymphocytes # (A) 1.1 k/uL (1.0-4.8); Lymphocytes % (A) 13 %; MCH 29.2 pg (25.0-35.0); MCHC 32.1 g/dL (31.0-37.0); MCV 90.9 fL (80.0-100.0); Mean Platelet Volume 6.8; Monocytes # (A) 0.7 k/uL (0-1.0); Monocytes % (A) 8 %; Neutrophils # (A) 6.7 k/uL (1.3-7.7); Neutrophils % (A) 77 %; Platelet Count 197 k/uL (150-450); RBC 3.36 m/uL (3.80-5.40); RDW 13.7 % (11.5-15.5); WBC 8.7 k/uL (3.8-10.6)
[2020-07-19 07:55] LABS: HGB 9.8 gm/dL (11.4-16.0)
[2020-07-19] MEDS: CHOLECALCIFEROL 1,000 UNIT TAB PO SCH (08:16)
[2020-07-19] MEDS: ASPIRIN 81 MG PO SCH (08:16)
[2020-07-19] MEDS ORDERED: MAGNESIUM OXIDE 400 MG TAB PO SCH (09:00)
[2020-07-19] MEDS ORDERED: lamoTRIgine 100 MG TAB PO SCH (09:00)
[2020-07-19] MEDS ORDERED: buPROPion XL 150 MG TAB.ER.24H PO SCH (09:00)
[2020-07-19] MEDS ORDERED: MULTIVITAMINS, THERA 1 EACH TAB PO SCH (12:00)
--- NOTE | 2020-07-19 12:39 | P.DS ---
Providers Expected date of discharge: 07/19/20 Attending physician: Gurvinder Sandoval Consults: 07/18/20 09:25 Consult Physician Routine Consulting Provider: Addie Miguel Consult Reason/Comments: post op medical management Do you want consulting provider notified?: Yes Primary care physician: Yeison He - Discharge Diagnosis(es) (1) Status post total left knee replacement Patient was admitted to the OR on 07/18/2020 to undergo a left total knee arthroplasty. She had failed conservative measures as an outpatient and desired to proceed with elective surgery after given informed consent. She underwent the above procedure which he tolerated well without complication. Postoperative hospital course has remained without complication. On day of discharge she is afebrile, vital signs stable, labs within acceptable ranges, tolerating by mouth meds and diet, voiding without difficulty, positive flatus, denies abdominal pain or calf pain, pain is controlled on oral pain medication and has no new complaints. Wound is benign, neurovascular status is intact, calf is soft and nontender, abdomen soft and nontender. Review of systems is negative for numbness, tingling, fever, chills, chest pain, shortness of breath, nausea, vomiting, dizziness, headaches, slurred speech or other. Current Visit: Yes Status: Acute Priority: Medium Patient Condition at Discharge: Good Plan - Discharge Summary Discharge Rx Participant: Yes New Discharge Prescriptions: New Aspirin [Adult Low Dose Aspirin EC] 81 mg PO BID #60 tablet. HYDROcodone/APAP 7.5-325MG [[place] 7.5-325] 1 - 2 each PO Q6HR PRN #56 tab PRN Reason: Pain No Action Multivitamins, Thera [Multivitamin (formulary)] 1 tab PO DAILY #30 tab Magnesium Oxide [Wood] 500 mg PO DAILY Melatonin 5 mg PO HS 28 Days tablet Cholecalciferol [Vitamin D3 (25 Mcg = 1000 Iu)] 2,000 unit PO BID tab lamoTRIgine [LaMICtal] 100 mg PO QAM Levothyroxine Sodium [Synthroid] 88 mcg PO QAM ARIPiprazole IM patients own [Abilify Maintena] 400 mg IM Q30D buPROPion XL [Wellbutrin Xl] 150 mg PO QAM Discharge Medication List Multivitamins, Thera [Multivitamin (formulary)] 1 tab PO DAILY #30 tab 01/01/16 [Rx] Magnesium Oxide [Wood] 500 mg PO DAILY 08/23/19 [History] Cholecalciferol [Vitamin D3 (25 Mcg = 1000 Iu)] 2,000 unit PO BID tab 09/14/19 [Rx] Melatonin 5 mg PO HS 28 Days tablet 09/14/19 [Rx] ARIPiprazole IM patients own [Acefmaxwell Maintena] 400 mg IM Q30D 07/15/20 [History] Levothyroxine Sodium [Synthroid] 88 mcg PO QAM 07/15/20 [History] buPROPion XL [Wellbutrin Xl] 150 mg PO QAM 07/15/20 [History] lamoTRIgine [LaMICtal] 100 mg PO QAM 07/15/20 [History] Aspirin [Adult Low Dose Aspirin EC] 81 mg PO BID #60 tablet.dr 07/19/20 [Rx] HYDROcodone/APAP 7.5-325MG [[place] 7.5-325] 1 - 2 each PO Q6HR PRN #56 tab 07/19/20 [Rx] Follow up Appointment(s)/Referral(s): [facility], [NON-STAFF] - 1 Week Yeison He DO [Primary Care Provider] - 07/25/20 10:20 am (With Misa) Gurvinder Sandoval MD [STAFF PHYSICIAN] - 07/29/20 11:00 am Patient Instructions/Handouts: *Surgery [facility] - On-Q Pain Pump Discharge Instructions, Joint Replacement Surgery (DC) Activity/Diet/Wound Care/Special Instructions: Keep wound clean and dry Take meds as directed Follow-up with Dr. Sandoval in office Weight bear as tolerated May shower in 3 days if no bleeding Discharge Disposition: HOME WITH HOME HEALTH SERVICES
[2020-07-19] MEDS ORDERED: HYDROcodone/APAP 7.5-325MG 1 EACH TAB PO PRN (15:30)
--- NOTE | 2020-07-19 16:29 | P.CONS ---
History of Present Illness - Reason for Consult hypotension - History of Present Illness 68 of-year-old the female was admitted for left knee arthroplasty. Patient is clinically doing well. Patient is being discharged today patient denied any fever chills nausea vomiting dysuria. Patient presently doesn't have any Rodney catheter. Review of Systems REVIEW OF SYSTEMS: CONSTITUTIONAL: No fever, no malaise, no fatigue. HEENT: No recent visual problems or hearing problems. Denied any sore throat. CARDIOVASCULAR: No chest pain, orthopnea, PND, no palpitations, no syncope. PULMONARY: No shortness of breath, no cough, no hemoptysis. GASTROINTESTINAL: No diarrhea, no nausea, no vomiting, no abdominal pain. NEUROLOGICAL: No headaches, no weakness, no numbness. HEMATOLOGICAL: Denies any bleeding or petechiae. GENITOURINARY: Denies any burning micturition, frequency, or urgency. MUSCULOSKELETAL/RHEUMATOLOGICAL: Denies any joint pain, swelling, or any muscle pain. ENDOCRINE: Denies any polyuria or polydipsia. The rest of the 14-point review of systems is negative. Past Medical History Past Medical History: Thyroid Disorder, Vascular Disorder Additional Past Medical History / Comment(s): recent UTI, finished course of Bactrim on 07/15/20, hx osteoporosis, unable to take medications, R lung nodules-pt states noncancerous , slight kidney problems-lab tests a little abnormal pt states due to previously having been on lithium, varicose veins kathy legs, History of Any Multi-Drug Resistant Organisms: None Reported Past Surgical History: Adenoidectomy, Appendectomy, Bariatric Surgery, Ear Surgery, Tonsillectomy Additional Past Surgical History / Comment(s): Lap band 2003 with a port replacement 2011 ,then in 2016- lap band port/lap band removed , L ear cyst removal, colonoscopy-normal,EXP LAP REDUCTION OF VENTRAL HERNIA,DECOMPRESSION OF BOWEL,DIVISION OF GASTRIC BAND CATHETER FREEING OF BOWEL THAT WAS STRANGU LATED. Past Anesthesia/Blood Transfusion Reactions: No Reported Reaction Additional Past Anesthesia/Blood Transfusion Reaction / Comm: Pt has never re cieved blood. Past Psychological History: Bipolar Smoking Status: Never smoker Past Alcohol Use History: None Reported Past Drug Use History: None Reported - Past Family History Father Additional Family Medical History / Comment(s): Father of ruptured aortic aneurysm at age 76yrs. Mother Additional Family Medical History / Comment(s): Mother had an abdominal aneurysm. She in her sleep at age 78yrs. Medications and Allergies Home Medications Medication Instructions Recorded Confirmed Type Multivitamins, Thera [Multivitamin 1 tab PO DAILY #30 tab 01/01/16 07/18/20 Rx (formulary)] Magnesium Oxide [Wood] 500 mg PO DAILY 08/23/19 07/18/20 History Cholecalciferol [Vitamin D3 (25 2,000 unit PO BID tab 09/14/19 07/18/20 Rx Mcg = 1000 Iu)] Melatonin 5 mg PO HS 28 Days tablet 09/14/19 07/18/20 Rx ARIPiprazole IM patients own 400 mg IM Q30D 07/15/20 07/18/20 History [Abilify Maintena] Levothyroxine Sodium [Synthroid] 88 mcg PO QAM 07/15/20 07/18/20 History buPROPion XL [Wellbutrin Xl] 150 mg PO QAM 07/15/20 07/18/20 History lamoTRIgine [LaMICtal] 100 mg PO QAM 07/15/20 07/18/20 History Aspirin [Adult Low Dose Aspirin EC] 81 mg PO BID #60 tablet.dr 07/19/20 Rx HYDROcodone/APAP 7.5-325MG [[place] 1 - 2 each PO Q6HR PRN #56 tab 07/19/20 Rx 7.5-325] Allergies Allergy/AdvReac Type Severity Reaction Status Date / Time alendronate sodium Allergy Rash/Hives Verified 07/15/20 12:10 [From Fosamax] amoxicillin Allergy Rash/Hives Verified 07/15/20 12:10 guaifenesin [From Robitussin] Allergy Rash/Hives Verified 07/15/20 12:10 ibandronate sodium Allergy Rash/Hives Verified 07/15/20 12:10 [From Boniva] Physical Exam Vitals: Vital Signs Temp Pulse Resp BP Pulse Ox 07/19/20 07:00 98.2 F 70 16 95/59 96 07/19/20 02:32 98.1 F 72 16 108/67 97 07/18/20 19:55 98.5 F 74 16 102/65 95 07/18/20 17:47 98.5 F 86 16 124/76 96 Intake and Output 10/07/19/20 07/19/20 06:59 14:59 22:59 Intake Total 432 Balance 432 Intake: Oral 432 Other: # Voids 2 2 PHYSICAL EXAMINATION: GENERAL: The patient is alert and oriented x3, not in any acute distress. Well developed, well nourished. HEENT: Pupils are round and equally reacting to light. EOMI. No scleral icterus. No conjunctival pallor. Normocephalic, atraumatic. No pharyngeal erythema. No thyromegaly. CARDIOVASCULAR: S1 and S2 present. No murmurs, rubs, or gallops. PULMONARY: Chest is clear to auscultation, no wheezing or crackles. ABDOMEN: Soft, nontender, nondistended, normoactive bowel sounds. No palpable organomegaly. MUSCULOSKELETAL: No joint swelling or deformity.left knee is postsurgically packed EXTREMITIES: No cyanosis, clubbing, or pedal edema. NEUROLOGICAL: Gross neurological examination did not reveal any focal deficits. SKIN: No rashes. Results CBC & Chem 7: 07/19/20 07:11 Labs: Abnormal Lab Results - Last 24 Hours (Table) 07/19/20 Range/Units 07:11 RBC 3.36 L (3.80-5.40) m/uL Hgb 9.8 L D (11.4-16.0) gm/dL Hct 30.5 L (34.0-46.0) % Assessment and Plan Plan: -hypertension: Expected in the perioperative period patient doesn't have any symptoms at this time patient is medically stable to be discharged -Hyperthyroidism -Bipolar disorder: Patient was resumed on her home medications patient can be discharged from medical perspective.
== END 2020-07-19 16:30 | disposition home health service (06) ==
LOC: OR 07:34 → 4SSUR 11:19 → OR 07-19 16:30
PROVIDERS: ATTEND Orthopaedic Surgery Sports Medicine
DX: M17.0 Bilateral primary osteoarthritis of knee (principal); M21.062 Valgus deformity, not elsewhere classified, left knee; M25.762 Osteophyte, left knee; I10 Essential (primary) hypertension; M81.0 Age-related osteoporosis without current pathological fracture; F31.9 Bipolar disorder, unspecified; I83.93 Asymptomatic varicose veins of bilateral lower extremities; E05.90 Thyrotoxicosis, unspecified without thyrotoxic crisis or storm; Z88.0 Allergy status to penicillin; Z88.8 Allergy status to other drugs, medicaments and biological substances; Z87.440 Personal history of urinary (tract) infections; Z79.890 Hormone replacement therapy; Z79.899 Other long term (current) drug therapy; Z98.84 Bariatric surgery status; Z98.890 Other specified postprocedural states; Z82.49 Family history of ischemic heart disease and other diseases of the circulatory system
CPT/HCPCS: 27447; 97110; 97161; 64448; 76942; 85025; 88300; 73560; C1776; C1713; J2250; J0171; J1100; J2175; J0690 ×3; J2405; J2001; J3010; J1885; J2795 ×2; J0330; J2704; J0735; J1170 ×2

== ENCOUNTER 2021-01-30 10:56 | Inpatient (IN) | payer MEDICARE ==
--- NOTE | 2021-01-30 11:42 | ED ---
Psych HPI - General Source: patient, EMS, RN notes reviewed Mode of arrival: EMS Limitations: no limitations <Yeison Lambert - Last Filed: 01/30/21 11:40> <Milton Nieves - Last Filed: 01/30/21 20:14> - General Chief Complaint: Psychiatric Symptoms Stated Complaint: Mental Health Time Seen by Provider: 01/30/21 11:18 - History of Present Illness Initial Comments: This a 70-year-old female presents emergency Department with chief complaint of needing psychiatric help. Patient is brought as she was combative, had a manic episode. Patient does have a long history of psychiatric disorder. Patient is not providing much information as she is having flight of ideas, random thoughts in the room. Patient denies being suicidal patient has no physical complaints denies chest pain shortness of breath abdominal pain headache or dizziness. Denies any current drug use. (Yeison Lambert) - Related Data Home Medications Medication Instructions Recorded Confirmed ARIPiprazole IM patients own 400 mg IM Q30D 07/15/20 01/30/21 [Abilify Maintena] Levothyroxine Sodium [Synthroid] 88 mcg PO QAM 07/15/20 01/30/21 ARIPiprazole [Abilify] 20 mg PO DAILY 01/30/21 01/30/21 lamoTRIgine [LaMICtal] 25 mg PO BID 01/30/21 01/30/21 Allergies Allergy/AdvReac Type Severity Reaction Status Date / Time alendronate sodium Allergy Rash/Hives Verified 01/30/21 12:40 [From Fosamax] amoxicillin Allergy Rash/Hives Verified 01/30/21 12:40 guaifenesin [From Robitussin] Allergy Rash/Hives Verified 01/30/21 12:40 ibandronate sodium Allergy Rash/Hives Verified 01/30/21 12:40 [From Boniva] Review of Systems ROS Other: All systems not noted in ROS Statement are negative. <Yeison Lambert - Last Filed: 01/30/21 11:40> ROS Other: All systems not noted in ROS Statement are negative. <Milton Nieves - Last Filed: 01/30/21 20:14> ROS Statement: Those systems with pertinent positive or pertinent negative responses have been documented in the HPI. Past Medical History Past Medical History: Thyroid Disorder, Vascular Disorder Additional Past Medical History / Comment(s): Other HX: R lung nodules-pt states noncancerous , slight kidney problems-lab tests a little abnormal pt states due to previously having been on lithium, previously charted stable descending aortic aneurysm- pt denies this, cholelithiasis, hypothyroidism, vari cosities R leg, constipation. past BOWEL OBSTUCTION, wears a bite guard at night History of Any Multi-Drug Resistant Organisms: None Reported Past Surgical History: Adenoidectomy, Appendectomy, Bariatric Surgery, Ear Surgery, Tonsillectomy Additional Past Surgical History / Comment(s): Lap band 2004 with a port replacement 2011 ,then in 2016- lap band port/lap band removed , L ear cyst removal, colonoscopy-normal,EXP LAP REDUCTION OF VENTRAL HERNIA,DECOMPRESSION OF BOWEL,DIVISION OF GASTRIC BAND CATHETER FREEING OF BOWEL THAT WAS STRANGULATED. Past Anesthesia/Blood Transfusion Reactions: No Reported Reaction Additional Past Anesthesia/Blood Transfusion Reaction / Comment(s): Pt has never recieved blood. Past Psychological History: Bipolar Smoking Status: Former smoker Past Alcohol Use History: None Reported Past Drug Use History: None Reported - Past Family History Father Additional Family Medical History / Comment(s): Father of ruptured aortic aneurysm at age 76yrs. Mother Additional Family Medical History / Comment(s): Mother had an abdominal aneurysm. She in her sleep at age 78yrs. <Yeison Lambert M - Last Filed: 01/30/21 11:40> General Exam General appearance: alert, in no apparent distress Head exam: Present: atraumatic, normocephalic, normal inspection Eye exam: Present: normal appearance, PERRL, EOMI. Absent: scleral icterus, conjunctival injection, periorbital swelling ENT exam: Present: normal exam, mucous membranes moist Neck exam: Present: normal inspection. Absent: tenderness, meningismus, lymphadenopathy Respiratory exam: Present: normal lung sounds bilaterally. Absent: respiratory distress, wheezes, rales, rhonchi, stridor Cardiovascular Exam: Present: regular rate, normal rhythm, normal heart sounds. Absent: systolic murmur, diastolic murmur, rubs, gallop, clicks Neurological exam: Present: alert Psychiatric exam: Present: anxious, manic <Yeison Lambert M - Last Filed: 01/30/21 11:40> Course Vital Signs 01/30/21 11:57 Temperature 97.7 F Pulse Rate 88 Respiratory 18 Rate Blood Pressure 163/88 O2 Sat by Pulse 100 Oximetry Medical Decision Making - Lab Data Result diagrams: 01/30/21 11:42 01/30/21 11:42 <Milton Nieves - Last Filed: 01/30/21 20:14> - Medical Decision Making Patient seen by mental health services with plans for transfer for geriatric psychiatric care. (Milton Nieves) - Lab Data Lab Results 01/30/21 01/30/21 01/30/21 Range/Units 11:42 11:42 11:42 WBC 7.4 (3.8-10.6) k/uL RBC 4.63 (3.80-5.40) m/uL Hgb 13.4 (11.4-16.0) gm/dL Hct 41.0 (34.0-46.0) % MCV 88.6 (80.0-100.0) fL MCH 29.1 (25.0-35.0) pg MCHC 32.8 (31.0-37.0) g/dL RDW 14.0 (11.5-15.5) % Plt Count 325 (150-450) k/uL MPV 6.4 Neutrophils % 77 % Lymphocytes % 12 % Monocytes % 7 % Eosinophils % 3 % Basophils % 1 % Neutrophils # 5.7 (1.3-7.7) k/uL Lymphocytes # 0.9 L (1.0-4.8) k/uL Monocytes # 0.5 (0-1.0) k/uL Eosinophils # 0.2 (0-0.7) k/uL Basophils # 0.1 (0-0.2) k/uL Sodium 140 (137-145) mmol/L Potassium 4.7 (3.5-5.1) mmol/L Chloride 102 (98-107) mmol/L Carbon Dioxide 30 (22-30) mmol/L Anion Gap 8 mmol/L BUN 21 H (7-17) mg/dL Creatinine 1.05 H (0.52-1.04) mg/dL Est GFR (CKD-EPI)AfAm 61 (>60 ml/min/1.73 sqM) Est GFR (CKD-EPI)NonAf 53 (>60 ml/min/1.73 sqM) Glucose 99 (74-99) mg/dL Calcium 10.8 H (8.4-10.2) mg/dL Total Bilirubin 0.5 (0.2-1.3) mg/dL AST 40 H (14-36) U/L ALT 23 (4-34) U/L Alkaline Phosphatase 76 (38-126) U/L Total Protein 7.9 (6.3-8.2) g/dL Albumin 4.8 (3.5-5.0) g/dL Urine Color Yellow Urine Appearance Clear (Clear) Urine pH 7.5 (5.0-8.0) Ur Specific [place] 1.011 (1.001-1.035) Urine Protein Trace H (Negative) Urine Glucose (UA) Negative (Negative) Urine Ketones Negative (Negative) Urine Blood Negative (Negative) Urine Nitrite Negative (Negative) Urine Bilirubin Negative (Negative) Urine Urobilinogen <2.0 (<2.0) mg/dL Ur Leukocyte Esterase Small H (Negative) Urine RBC <1 (0-5) /hpf Urine WBC 4 (0-5) /hpf Ur Squamous Epith Cells 2 (0-4) /hpf Ur Transition Epith Cell <1 (0-1) /hpf Urine Bacteria Rare H (None) /hpf Hyaline Casts 1 (0-2) /lpf Urine Mucus Rare H (None) /hpf Urine Opiates Screen Not Detected (NotDetected) Ur Oxycodone Screen Not Detected (NotDetected) Urine Methadone Screen Not Detected (NotDetected) Ur Propoxyphene Screen Not Detected (NotDetected) Ur Barbiturates Screen Not Detected (NotDetected) U Tricyclic Antidepress Not Detected (NotDetected) Ur Phencyclidine Scrn Not Detected (NotDetected) Ur Amphetamines Screen Not Detected (NotDetected) U Methamphetamines Scrn Not Detected (NotDetected) U Benzodiazepines Scrn Not Detected (NotDetected) Urine Cocaine Screen Not Detected (NotDetected) U Marijuana (THC) Screen Not Detected (NotDetected) Disposition <Yeison Lambert - Last Filed: 01/30/21 11:40> Is patient prescribed a controlled substance at d/c from ED?: No Time of Disposition: 20:14 <Milton Nieves - Last Filed: 01/30/21 20:14> Clinical Impression: Asmita Disposition: TRANSFER TO PSYCH HOSP/UNIT Referrals: Yeison He DO [Primary Care Provider] - 1-2 days
[2021-01-30 12:12] LABS: Basophils # (A) 0.1 k/uL (0-0.2); Basophils % (A) 1 %; Eosinophils # (A) 0.2 k/uL (0-0.7); Eosinophils % (A) 3 %; HGB 13.4 gm/dL (11.4-16.0); Lymphocytes # (A) 0.9 k/uL (1.0-4.8); Lymphocytes % (A) 12 %; MCH 29.1 pg (25.0-35.0); MCHC 32.8 g/dL (31.0-37.0); MCV 88.6 fL (80.0-100.0); Mean Platelet Volume 6.4; Monocytes # (A) 0.5 k/uL (0-1.0); Monocytes % (A) 7 %; Neutrophils # (A) 5.7 k/uL (1.3-7.7); Neutrophils % (A) 77 %; Platelet Count 325 k/uL (150-450); RBC 4.63 m/uL (3.80-5.40); WBC 7.4 k/uL (3.8-10.6)
[2021-01-30 12:18] LABS: Appearance,Urine Clear (Clear); Bacteria,Urine Rare /hpf; Bilirubin,Urine Negative (Negative); Blood,Urine Negative (Negative); Color,Urine Yellow; Glucose,Urine (UA) Negative (Negative); Hyaline Casts,Urine 1 /lpf (0-2); Ketones,Urine Negative (Negative); Leukocyte Esterase,Urine Small (Negative); Mucus,Urine Rare /hpf; Nitrite,Urine Negative (Negative); PH, Urine 7.5 (5.0-8.0); Protein,Urine Trace (Negative); RBC,Urine <1 /hpf (0-5); Specific Gravity,Urine 1.011 (1.001-1.035); Squamous Epithelial Cell,Urine 2 /hpf (0-4); Transitional Epi Cells,Urine <1 /hpf (0-1); Urobilinogen,Urine <2.0 mg/dL (<2.0); WBC,Urine 4 /hpf (0-5)
[2021-01-30 12:19] LABS: Albumin 4.8 g/dL (3.5-5.0); Calcium 10.8 mg/dL (8.4-10.2); Potassium 4.7 mmol/L (3.5-5.1); Total Bilirubin 0.5 mg/dL (0.2-1.3); Total Protein 7.9 g/dL (6.3-8.2)
[2021-01-30 12:56] LABS: Amphetamine Screen,Urine Not Detected (NotDetected); Barbiturate Screen,Urine Not Detected (NotDetected); Benzodiazepines Screen,Urine Not Detected (NotDetected); Cocaine Screen,Urine Not Detected (NotDetected); Methadone Screen, Urine Not Detected (NotDetected); Opiate Screen,Urine Not Detected (NotDetected); Oxycodone Screen, Urine Not Detected (NotDetected); Phencyclidine Screen,Urine Not Detected (NotDetected); Tricyclic Antidepressant,Urine Not Detected (NotDetected); Urn Cannabinoid Scrn Not Detected (NotDetected)
[2021-01-31] MEDS ORDERED: ARIPiprazole 10 MG TAB PO SCH (12:00)
[2021-01-31] MEDS ORDERED: LEVOTHYROXINE 88 MCG TAB PO SCH (12:00)
[2021-02-01] MEDS ORDERED: ACETAMINOPHEN TAB 325 MG TAB PO PRN (00:23)
[2021-02-01] MEDS ORDERED: MAG HYDROX/AL HYDROX/SIMETH 30 ML CUP PO PRN (00:23)
[2021-02-01] MEDS ORDERED: MAGNESIUM HYDROXIDE 2,400 MG/10 ML CUP PO PRN (00:23)
[2021-02-01] MEDS ORDERED: LORazepam 2 MG/ML INJ IM PRN (00:27)
[2021-02-01] MEDS: LEVOTHYROXINE 88 MCG TAB PO SCH (06:23)
--- NOTE | 2021-02-01 11:04 | P.HP ---
Psychiatric H&P - . H&P Date: 02/01/21 History & Physical: IDENTIFYING DATA: Radha is a 70-year-old female who has a history of a bipolar illness. HISTORY OF PRESENT ILLNESS: She is well known to this unit from her prior psychiatric hospitalizations. I attempted to interview the patient and spoke with her on the telephone. Her completed a Petition that was tersely worded. The petition read "went to bed Wednesday night about 10 PM. Radha talked a lot. Got up about 5 AM." Her provided minimal additional information when we spoke on the telephone. He perseverated about her history of a bipolar illness and complained that become "bipolar again". She was not sleeping, "talking constantly" and her speech was incoherent. He denied that she has been assaultive or aggressive. He acknowledged that she is maintaining her personal hygiene. He noticed that she had become more and more depressed over the last few months and recently has not been sleeping at night. He complained that she talks constantly and her speech has become incomprehensible. He stated he brought her to Hospital because he could no longer "manage her at home." When I pressed him about the specifics of her behavior he talked about an incident where he took the car keys from her because she did not believe she was competent to be able to drive safely. She proceeded to get dressed to leave the house. She went into the garage, sat in the car and kept honking horn to get his attention. She was unable to provide a coherent history. Her speech pressured and incoherent. PAST PSYCHIATRIC HISTORY: This is at least her sixth admission to the psychiatric unit. Her last discharge was in August 2019 and her discharge diagnoses was bipolar disorder Court episode manic with psychotic features. According to her , she has met with a private psychiatrist, Dr. Jazmin Sweeney at [facility] for the last [address] Sweeney started Radha on Abilify last year and has been administering Abilify Maintena injections. PAST MEDICAL HISTORY: The patient was unable to provide a coherent past medical history. According to the medical record she has history of hypothyroidism. ALLERGIES: alendronate sodium, amoxicillin, one is seen, ibandronate sodium SUBSTANCE USE HISTORY: Her denied that she has a history of substance use problems. FAMILY PSYCHIATRIC/SUBSTANCE USE HISTORY: She is unaware of family history of mental illness. LEGAL HISTORY: Her believes that their daughter has guardianship. SOCIAL HISTORY: Patient lives at home with her . They were in 1986 and has 1 daughter. She was an unwed single mother for years prior to marrying her . She has 2 grandchildren. She has 2 sisters that live in [place] and are a support to her. MENTAL STATUS EXAM: She presented as a beavers-haired, obese 70-year-old occasion female who was pleasant on approach. She made intermittent eye contact and appeared to attend to the interview. She had no distinguishing features or pr ominent physical abnormalities. She had a blunted facial expression. She was alert to person and place. (I was unable to understand her responses to my questions about orientation) she showed no abnormality of psychomotor activity. Her gait was slow but steady. Her speech was spontaneous, pressured, dysarthric and at times and audible. She mumbled during most of the interview. Her affect was stable and appropriate. She did not express suicidal ideation, wishes or homicidal ideation. She did not express clear ideas of hopelessness, helplessness or worthlessness. She perseverated about her and appeared to alleged that her will be coming to the hospital soon to take her home. Her thinking was grossly disorganized, incoherent and not goal directed. She did not appear to responding to internal stimuli. Global impression of intellect is average. She has no insight or understanding of her illness or need for treatment. STRENGTHS: We will see good physical health, supportive family, engagement with psychiatric services WEAKNESSES: chronic and severe mental illness IMPRESSION: She is a 70-year-old female who has a well- established diagnosis of a bipolar illness. She presented to the psychiatric unit involuntarily with signs and symptoms consistent with an acute manic episode. Her speech is grossly disorganized and she shows no insight or understanding of her need for treatment. Should be treated inpatient basis with combination of psychopharmacology and multimodal therapy. PRINCIPLE DIAGNOSIS: Bipolar disorder most recent episode manic severe, rule out major neurocognitive disorder RECOMMENDATION: Admitted to the psychiatric unit. Proceed with involuntary hospitalization. Consult medicine for initial physical exam and medical history. ironworker completed initial psychosocial assessment coordinate discharge and aftercare. Continue Abilify 20 mg daily. Determine date of the last Abilify Maintena injection. Continue Lamictal 25 mg twice a day and titrated clinical response and tolerance. Encourage participation in therapeutic groups and activities as tolerated. Evaluate clinical status response to treatment daily basis. Allergies Allergy/AdvReac Type Severity Reaction Status Date / Time alendronate sodium Allergy Rash/Hives Verified 01/30/21 12:40 [From Fosamax] amoxicillin Allergy Rash/Hives Verified 01/30/21 12:40 guaifenesin [From Robitussin] Allergy Rash/Hives Verified 01/30/21 12:40 ibandronate sodium Allergy Rash/Hives Verified 01/30/21 12:40 [From Boniva] Vital Signs Temp 97.7 F 02/01/21 00:42 Pulse 111 H 02/01/21 00:42 Resp 18 02/01/21 00:42 BP 112/74 02/01/21 00:42 Pulse Ox 91 L 02/01/21 00:42 Laboratory Last Values WBC 7.4 k/uL (3.8-10.6) 01/30/21 11:42 RBC 4.63 m/uL (3.80-5.40) 01/30/21 11:42 Hgb 13.4 gm/dL (11.4-16.0) 01/30/21 11:42 Hct 41.0 % (34.0-46.0) 01/30/21 11:42 MCV 88.6 fL (80.0-100.0) 01/30/21 11:42 MCH 29.1 pg (25.0-35.0) 01/30/21 11:42 MCHC 32.8 g/dL (31.0-37.0) 01/30/21 11:42 RDW 14.0 % (11.5-15.5) 01/30/21 11:42 Plt Count 325 k/uL (150-450) 01/30/21 11:42 MPV 6.4 01/30/21 11:42 Neutrophils % 77 % 01/30/21 11:42 Lymphocytes % 12 % 01/30/21 11:42 Monocytes % 7 % 01/30/21 11:42 Eosinophils % 3 % 01/30/21 11:42 Basophils % 1 % 01/30/21 11:42 Neutrophils # 5.7 k/uL (1.3-7.7) 01/30/21 11:42 Lymphocytes # 0.9 k/uL (1.0-4.8) L 01/30/21 11:42 Monocytes # 0.5 k/uL (0-1.0) 01/30/21 11:42 Eosinophils # 0.2 k/uL (0-0.7) 01/30/21 11:42 Basophils # 0.1 k/uL (0-0.2) 01/30/21 11:42 Sodium 140 mmol/L (137-145) 01/30/21 11:42 Potassium 4.7 mmol/L (3.5-5.1) 01/30/21 11:42 Chloride 102 mmol/L (98-107) 01/30/21 11:42 Carbon Dioxide 30 mmol/L (22-30) 01/30/21 11:42 Anion Gap 8 mmol/L 01/30/21 11:42 BUN 21 mg/dL (7-17) H 01/30/21 11:42 Creatinine 1.05 mg/dL (0.52-1.04) H 01/30/21 11:42 Est GFR (CKD-EPI)AfAm 61 (>60 ml/min/1.73 sqM) 01/30/21 11:42 Est GFR (CKD-EPI)NonAf 53 (>60 ml/min/1.73 sqM) 01/30/21 11:42 Glucose 99 mg/dL (74-99) 01/30/21 11:42 Calcium 10.8 mg/dL (8.4-10.2) H 01/30/21 11:42 Total Bilirubin 0.5 mg/dL (0.2-1.3) 01/30/21 11:42 AST 40 U/L (14-36) H 01/30/21 11:42 ALT 23 U/L (4-34) 01/30/21 11:42 Alkaline Phosphatase 76 U/L (38-126) 01/30/21 11:42 Total Protein 7.9 g/dL (6.3-8.2) 01/30/21 11:42 Albumin 4.8 g/dL (3.5-5.0) 01/30/21 11:42 TSH 1.050 mIU/L (0.465-4.680) 01/30/21 11:42 Urine Color Yellow 01/30/21 11:42 Urine Appearance Clear (Clear) 01/30/21 11:42 Urine pH 7.5 (5.0-8.0) 01/30/21 11:42 Ur Specific [place] 1.011 (1.001-1.035) 01/30/21 11:42 Urine Protein Trace (Negative) H 01/30/21 11:42 Urine Glucose (UA) Negative (Negative) 01/30/21 11:42 Urine Ketones Negative (Negative) 01/30/21 11:42 Urine Blood Negative (Negative) 01/30/21 11:42 Urine Nitrite Negative (Negative) 01/30/21 11:42 Urine Bilirubin Negative (Negative) 01/30/21 11:42 Urine Urobilinogen <2.0 mg/dL (<2.0) 01/30/21 11:42 Ur Leukocyte Esterase Small (Negative) H 01/30/21 11:42 Urine RBC <1 /hpf (0-5) 01/30/21 11:42 Urine WBC 4 /hpf (0-5) 01/30/21 11:42 Ur Squamous Epith Cells 2 /hpf (0-4) 01/30/21 11:42 Ur Transition Epith Cell <1 /hpf (0-1) 01/30/21 11:42 Urine Bacteria Rare /hpf (None) H 01/30/21 11:42 Hyaline Casts 1 /lpf (0-2) 01/30/21 11:42 Urine Mucus Rare /hpf (None) H 01/30/21 11:42 Urine Opiates Screen Not Detected (NotDetected) 01/30/21 11:42 Ur Oxycodone Screen Not Detected (NotDetected) 01/30/21 11:42 Urine Methadone Screen Not Detected (NotDetected) 01/30/21 11:42 Ur Propoxyphene Screen Not Detected (NotDetected) 01/30/21 11:42 Ur Barbiturates Screen Not Detected (NotDetected) 01/30/21 11:42 U Tricyclic Antidepress Not Detected (NotDetected) 01/30/21 11:42 Ur Phencyclidine Scrn Not Detected (NotDetected) 01/30/21 11:42 Ur Amphetamines Screen Not Detected (NotDetected) 01/30/21 11:42 U Methamphetamines Scrn Not Detected (NotDetected) 01/30/21 11:42 U Benzodiazepines Scrn Not Detected (NotDetected) 01/30/21 11:42 Urine Cocaine Screen Not Detected (NotDetected) 01/30/21 11:42 U Marijuana (THC) Screen Not Detected (NotDetected) 01/30/21 11:42 Influenza Type A (PCR) Not Detected (Not Detectd) 01/31/21 00:49 Influenza Type B (PCR) Not Detected (Not Detectd) 01/31/21 00:49 RSV (PCR) Not Detected (Not Detectd) 01/31/21 00:49 SARS-CoV-2 (PCR) Not Detected (Not Detectd) 01/31/21 00:49 02/01/21 10:30
[2021-02-01] MEDS: lamoTRIgine 25 MG TAB PO SCH ×2 (12:00→22:00)
--- NOTE | 2021-02-01 13:10 | P.CONS ---
History of Present Illness - Reason for Consult Hypothyroidism - History of Present Illness Patient is admitted for bipolar disorder. Patient is clinically doing well denied any fever chills nausea vomiting cough fever chills.. Patient does have history of hypothyroidism patient was started on levothyroxine. Patient had a noncancerous pulmonary nodules for which she is to follow with pulmonology as an outpatient. Review of Systems REVIEW OF SYSTEMS: CONSTITUTIONAL: No fever, no malaise, no fatigue. HEENT: No recent visual problems or hearing problems. Denied any sore throat. CARDIOVASCULAR: No chest pain, orthopnea, PND, no palpitations, no syncope. PULMONARY: No shortness of breath, no cough, no hemoptysis. GASTROINTESTINAL: No diarrhea, no nausea, no vomiting, no abdominal pain. NEUROLOGICAL: No headaches, no weakness, no numbness. HEMATOLOGICAL: Denies any bleeding or petechiae. GENITOURINARY: Denies any burning micturition, frequency, or urgency. MUSCULOSKELETAL/RHEUMATOLOGICAL: Denies any joint pain, swelling, or any muscle pain. ENDOCRINE: Denies any polyuria or polydipsia. The rest of the 14-point review of systems is negative. Past Medical History Past Medical History: Thyroid Disorder, Vascular Disorder Additional Past Medical History / Comment(s): Other HX: R lung nodules-pt states noncancerous , slight kidney problems-lab tests a little abnormal pt states due to previously having been on lithium, previously charted stable descending aortic aneurysm- pt denies this, cholelithiasis, hypothyroidism, varicosities R leg, constipation. past BOWEL OBSTUCTION, wears a bite guard at night History of Any Multi-Drug Resistant Organisms: None Reported Past Surgical History: Adenoidectomy, Appendectomy, Bariatric Surgery, Ear Surgery, Tonsillectomy Additional Past Surgical History / Comment(s): Lap band 2003 with a port replacement 2011 ,then in 2016- lap band port/lap band removed , L ear cyst removal, colonoscopy-normal,EXP LAP REDUCTION OF VENTRAL HERNIA,DECOMPRESSION OF BOWEL,DIVISION OF GASTRIC BAND CATHETER FREEING OF BOWEL THAT WAS STRANGULATED. Past Anesthesia/Blood Transfusion Reactions: No Reported Reaction Additional Past Anesthesia/Blood Transfusion Reaction / Comm: Pt has never recieved blood. Past Psychological History: Bipolar Smoking Status: Former smoker Past Alcohol Use History: None Reported Past Drug Use History: None Reported - Past Family History Father Additional Family Medical History / Comment(s): Father of ruptured aortic aneurysm at age 76yrs. Mother Additional Family Medical History / Comment(s): Mother had an abdominal aneurysm. She in her sleep at age 78yrs. Medications and Allergies Home Medications Medication Instructions Recorded Confirmed Type ARIPiprazole IM patients own 400 mg IM Q30D 07/15/20 01/30/21 History [Abilify Maintena] Levothyroxine Sodium [Synthroid] 88 mcg PO QAM 07/15/20 01/30/21 History ARIPiprazole [Abilify] 20 mg PO DAILY 01/30/21 01/30/21 History lamoTRIgine [LaMICtal] 25 mg PO BID 01/30/21 01/30/21 History Allergies Allergy/AdvReac Type Severity Reaction Status Date / Time alendronate sodium Allergy Rash/Hives Verified 01/30/21 12:40 [From Fosamax] amoxicillin Allergy Rash/Hives Verified 01/30/21 12:40 guaifenesin [From Robitussin] Allergy Rash/Hives Verified 01/30/21 12:40 ibandronate sodium Allergy Rash/Hives Verified 01/30/21 12:40 [From Boniva] Physical Exam Vitals: Vital Signs Temp Pulse Pulse Resp BP BP Pulse Ox 02/01/21 00:42 97.7 F 111 H 18 112/74 91 L 02/01/21 00:32 97.6 F 74 18 134/88 98 01/31/21 20:00 98.6 F 77 20 147/88 99 PHYSICAL EXAMINATION: GENERAL: The patient is alert and oriented x3, not in any acute distress. Well developed, well nourished. HEENT: Pupils are round and equally reacting to light. EOMI. No scleral icterus. No conjunctival pallor. Normocephalic, atraumatic. No pharyngeal erythema. No thyromegaly. CARDIOVASCULAR: S1 and S2 present. No murmurs, rubs, or gallops. PULMONARY: Chest is clear to auscultation, no wheezing or crackles. ABDOMEN: Soft, nontender, nondistended, normoactive bowel sounds. No palpable organomegaly. MUSCULOSKELETAL: No joint swelling or deformity. EXTREMITIES: No cyanosis, clubbing, or pedal edema. NEUROLOGICAL: Gross neurological examination did not reveal any focal deficits. SKIN: No rashes. Results CBC & Chem 7: 01/30/21 11:42 01/30/21 11:42 Assessment and Plan Plan: -Hyperthyroidism patient was a started on levothyroxine which is appropriate -Bipolar disorder with acute manic episodes management as per primary service
[2021-02-02 03:58] LABS: Cholesterol 202 mg/dL (<200); HDL Cholesterol 82 mg/dL (40-60); LDL Cholesterol,Calculated 96 mg/dL (0-99); Triglycerides 122 mg/dL (<150)
[2021-02-02] MEDS: LEVOTHYROXINE 88 MCG TAB PO SCH (10:01)
[2021-02-02] MEDS: lamoTRIgine 25 MG TAB PO SCH ×2 (10:01→20:48)
--- NOTE | 2021-02-02 12:10 | P.PN ---
Progress Note - Text Progress Note Date: 02/02/21 Clinical Problems: Bipolar disorder most recent episode manic severe, rule out major neurocognitive disorder Interim history: I reviewed the medical record and attempted to interview the patient. She was pleasant but guarded and suspicious. Her speech was rapid and illogical. I did not understand much of what she said. However, she has posed no management problems and has had no episodes of behavioral dyscontrol since admission to the unit. She is compliant with prescribed medications. She has difficulty sleeping and nursing describes her as being restless throughout the night. She is not attending therapeutic groups and activities. She spends special time alone in a room or pacing the unit. Mental status exam: She presented as a casually groomed moderately obese elderly woman wearing a hospital gown. She made eye contact and appeared to attend to the interview. She had a bright facial expression. She was intermittently restless but showed no abnormal involuntary movements. Her speech was spontaneous with normal rate and volume. Her speech was dysarthric. Her affect was elevated. She did not express clear suicidal ideation, wishes or homicidal ideation. She ruminated about her and her clothes. She did not express clear paranoid ideation but it was difficult to understand her speech. She did however appear paranoid. Her thinking was concrete and not coherent, organized and logical. She did not appear to be responding to internal stimuli. Assessment: She remains seriously mentally ill and minimally improve from admission. Plan: Continue inpatient treatment. Probate hearing pending. Continue Abilify 20 mg daily and Abilify Maintena 400 mg every 3 days (we to clarify when she received her last injection). Increase Lamictal to 50 mg twice a day and titrated according to clinical response and tolerance. Encourage participation in therapeutic groups and activities. Evaluate clinical status response to treatment daily basis.
[2021-02-03] MEDS: LORazepam 1 MG TAB PO PRN ×2 (01:50→23:00)
[2021-02-03] MEDS: LEVOTHYROXINE 88 MCG TAB PO SCH (07:04)
[2021-02-03] MEDS: lamoTRIgine 25 MG TAB PO SCH ×2 (09:19→22:01)
--- NOTE | 2021-02-03 11:16 | P.PN ---
Progress Note - Text Progress Note Date: 02/03/21 Interval History: Patient was seen wandering the hallways and was directable and agreeable to speak with newswriter in the office. At this time, the patient is not reporting any suicidal or homicidal ideation, intention, she does appear to be confused about the events leading to this hospitalization but does not display any significant symptoms of garrett. The patient reports that she has been sleeping well and has no issues with appetite. The patient has been adherent with her medications. The patient is not presenting with any pressured speech and is currently not reporting any significant symptoms of auditory or visual hallucinations. She does appear to make some paranoid comments regarding her situation and her family but refuses to elaborate at this time. The patient has been intermittently adherent with her medications and is not reporting any significant side effects. Mental Status Exam: General Appearance: Patient appears to be stated age is alert, directable, and cooperative. Moderately obese elderly woman wearing a hospital gown. Behavior: Patient is calmly seated without any agitated behavior. Eye contact is appropriate during the interview. Psychomotor activity is normal. Speech: Patient's speech is fluent and nonpressured. Speech is low in volume, spontaneous, with normal rate and tone. Mood/Affect: Mood is improving mildly, affect is congruent and constricted. Suicidality/Homicidality: Patient denies any suicidal or homicidal ideation, intention, and/or plan. Perceptions: Patient denies any visual hallucinations and denies any auditory hallucinations Though content/process: The patient appears to endorse some paranoid delusions but refuses to elaborate. Thought process appears to be linear and logical at this time. Memory and concentration: AOX3, grossly intact for the purposes of this session Judgment and insight: Improving mildly Assessment Bipolar disorder, type I, manic episode Plan: -Patient continues to meet criteria for inpatient psychiatric admission for symptom stabilization and safety. The patient has been petitioned and certified. -Medications: Continue Abilify 20 mg by mouth daily for mood stabilization/psychosis Continue Lamictal 50 mg by mouth twice a day - consider switching Lamictal to Depakote as patient may not be adherent with her Lamictal increasing her risk for Jacques Randy syndrome. Patient's AST slightly elevated. She does appear to have elevated BUN/creatinine make her not a good candidate for lithium. -When necessary Ativan and Haldol for agitation/aggression. -SW on board for discharge planning. Encouraged the patient to participate in milieu.
[2021-02-04] MEDS: LEVOTHYROXINE 88 MCG TAB PO SCH (06:01)
[2021-02-04 07:54] LABS: Basophils % (A) 0 %; Eosinophils # (A) 0.1 k/uL (0-0.7); Eosinophils % (A) 1 %; HCT 40.4 % (34.0-46.0); HGB 13.5 gm/dL (11.4-16.0); Lymphocytes # (A) 1.4 k/uL (1.0-4.8); Lymphocytes % (A) 13 %; MCH 29.3 pg (25.0-35.0); MCHC 33.3 g/dL (31.0-37.0); Mean Platelet Volume 6.6; Monocytes # (A) 0.6 k/uL (0-1.0); Monocytes % (A) 6 %; Neutrophils # (A) 8.2 k/uL (1.3-7.7); Neutrophils % (A) 78 %; Platelet Count 289 k/uL (150-450); RBC 4.59 m/uL (3.80-5.40); RDW 13.6 % (11.5-15.5); WBC 10.5 k/uL (3.8-10.6)
[2021-02-04 08:02] LABS: Calcium 10.1 mg/dL (8.4-10.2); Potassium 4.5 mmol/L (3.5-5.1)
[2021-02-04] MEDS: lamoTRIgine 25 MG TAB PO SCH ×2 (10:12→20:28)
[2021-02-04 10:31] LABS: Appearance,Urine Clear (Clear); Bacteria,Urine Rare /hpf; Bilirubin,Urine Negative (Negative); Blood,Urine Negative (Negative); Color,Urine Yellow; Glucose,Urine (UA) Negative (Negative); Hyaline Casts,Urine 1 /lpf (0-2); Ketones,Urine 1+ (Negative); Leukocyte Esterase,Urine Large (Negative); Mucus,Urine Few /hpf; Nitrite,Urine Negative (Negative); PH, Urine 5.5 (5.0-8.0); Protein,Urine Negative (Negative); RBC,Urine 1 /hpf (0-5); Specific Gravity,Urine 1.016 (1.001-1.035); Squamous Epithelial Cell,Urine 1 /hpf (0-4); Urobilinogen,Urine <2.0 mg/dL (<2.0); WBC,Urine 8 /hpf (0-5)
--- NOTE | 2021-02-04 11:31 | P.PN ---
Progress Note - Text Progress Note Date: 02/04/21 Interval History: Patient was seen wandering the hallways and was directable and agreeable to speak with medical technical writer in her room. The patient continues to appear somewhat confused. She is able to identify recent events, location, her name, and the year but is unable to recall events leading to this hospitalization. She does admit that she has a history of bipolar disorder and does express that she has manic episodes. She is currently not reporting any suicidal or homicidal ideation, intention, and/or plan. She is not reporting auditory visual hallucinations. She is not reporting any paranoia or other delusions at this time. She is not reporting any racing thoughts, grandiosity, or mood swings. She denies any increase in goal-directed behavior. The patient is adherent with her medications does not report any significant side effects at this time. The patient has been urinating very frequently in her room and soiled much of her bedding. She is currently being evaluated for urinary tract infection. Mental Status Exam: General Appearance: Patient appears to be stated age is alert, directable, and cooperative. Moderately obese elderly woman wearing a hospital gown. Behavior: Patient is calmly seated without any agitated behavior. Eye contact is appropriate during the interview. Psychomotor activity is normal. Speech: Patient's speech is fluent and nonpressured. Speech is low in volume, spontaneous, with normal rate and tone. Mood/Affect: Mood is improving mildly, affect is congruent and constricted. Suicidality/Homicidality: Patient denies any suicidal or homicidal ideation, intention, and/or plan. Perceptions: Patient denies any visual hallucinations and denies any auditory hallucinations Though content/process: The patient appears to endorse some paranoid delusions but refuses to elaborate. Thought process appears to be linear and logical at this time. some confusion at baseline. Memory and concentration: AOX3, grossly intact for the purposes of this session Judgment and insight: Improving mildly Assessment Bipolar disorder, type I, manic episode Urinary tract infection Plan: -Patient continues to meet criteria for inpatient psychiatric admission for symptom stabilization and safety. The patient has been petitioned and certified. -Review of the patient's UA reveals significant amount of leukocyte esterase, WBC, and bacteria indicating a urinary tract infection. -Medications: Continue Abilify 20 mg by mouth daily for mood stabilization/psychosis Continue Lamictal 50 mg by mouth twice a day -When necessary Ativan and Haldol for agitation/aggression. -SW on board for discharge planning. Encouraged the patient to participate in milieu.
[2021-02-04] MEDS: CEFDINIR 300 MG CAP PO SCH (20:31)
[2021-02-05 01:58] LABS: Urine Alcohol Negative (Negative); Urine Barbiturate Negative (Negative); Urine Cocaine Negative (Negative); Urine Methadone Negative (Negative); Urine Opiates Negative (Negative); Urine Phencyclidine Negative (Negative)
[2021-02-05] MEDS: LORazepam 1 MG TAB PO PRN (03:52)
[2021-02-05] MEDS: LEVOTHYROXINE 88 MCG TAB PO SCH (07:12)
[2021-02-05] MEDS: CEFDINIR 300 MG CAP PO SCH ×2 (09:50→21:45)
[2021-02-05] MEDS: lamoTRIgine 25 MG TAB PO SCH (10:45)
--- NOTE | 2021-02-05 11:45 | P.PN ---
Progress Note - Text Progress Note Date: 02/05/21 Interval History: Patient was seen wandering the hallways and was directable and agreeable to speak with tag writer in the office. Patient reports that he had difficulty sleeping last night. As noted by staff, the patient suffered 2.5 hours. She is making statements that appeared to be somewhat disorganized today. She is otherwise not presenting with any mood lability, mood swings, or anger. She has been adherent with her medications and is not reporting any significant side effects at this time. Patient did not bring any suicidal or homicidal ideation, intention, and/or plan. She is not reporting visual hallucinations but does admit to some auditory hallucinations. When asked to explain these auditory hallucinations, the patient is unable to appropriately respond to the question and appears to be somewhat disorganized. She is not reporting any paranoia or other delusions. Mental Status Exam: General Appearance: Patient appears to be stated age is alert, directable, and cooperative. Moderately obese elderly woman wearing a hospital gown. Behavior: Patient is calmly seated without any agitated behavior. Eye contact is appropriate during the interview. Psychomotor activity is normal. Speech: Patient's speech is fluent and nonpressured. Speech is low in volume, spontaneous, with normal rate and tone. Mood/Affect: Mood is improving mildly, affect is congruent and constricted. Suicidality/Homicidality: Patient denies any suicidal or homicidal ideation, intention, and/or plan. Perceptions: Patient denies any visual hallucinations but endorses auditory hallucinations. Though content/process: The patient appears to endorse some paranoid delusions but refuses to elaborate. talk process appears to be disorganized. Memory and concentration: AOX3, grossly intact for the purposes of this session Judgment and insight: poor Assessment Bipolar disorder, type I, manic episode Urinary tract infection Plan: -Patient continues to meet criteria for inpatient psychiatric admission for symptom stabilization and safety. The patient deferred mental health court. -Medications: Continue Abilify 20 mg by mouth daily for mood stabilization/psychosis Increase lamotrigine to 50 mg by mouth daily and 75 mg daily at bedtime for mood stabilization Start melatonin 5 mg by mouth at bedtime for insomnia -When necessary Ativan and Haldol for agitation/aggression. -SW on board for discharge planning. Encouraged the patient to participate in milieu.
[2021-02-05] MEDS ORDERED: lamoTRIgine 25 MG TAB PO SCH (21:00)
[2021-02-05] MEDS: MELATONIN 5 MG TABLET PO SCH (21:45)
[2021-02-06] MEDS: LORazepam 1 MG TAB PO PRN (03:31)
[2021-02-06] MEDS: LEVOTHYROXINE 88 MCG TAB PO SCH (06:47)
[2021-02-06] MEDS: CEFDINIR 300 MG CAP PO SCH ×2 (08:09→21:29)
[2021-02-06] MEDS: lamoTRIgine 25 MG TAB PO SCH (08:09)
--- NOTE | 2021-02-06 11:36 | P.PN ---
Progress Note - Text Progress Note Date: 02/06/21 Interval History: Patient was seen wandering the hallways and was directable and agreeable to speak with appeals writer in her room. Patient was noted by staff to only slept for 1 hour. The patient was also difficult to redirect. She was also overheard talking aloud in her room and voicing loose associations. The patient continues to display some confusion. She is alert and oriented to person and place but not to time or situation. She is unable to recall events leading up to this hospitalization. She is not reporting any suicidal or homicidal ideation, intention, and/or plan. She is not reporting any auditory or visual hallucinations. Despite this, the patient often responds to questioning in a nonsensical nonlinear fashion. At times she is difficult to understand. She is not reporting any paranoia or delusions at this time. She has been adherent with the medications and is currently not endorsing any significant side effects. She is currently receiving Omnicef for management of UTI. Mental Status Exam: General Appearance: Patient appears to be stated age is alert, directable, and cooperative. Moderately obese elderly woman wearing a hospital gown. Behavior: Patient is calmly seated without any agitated behavior. Eye contact is appropriate during the interview. Psychomotor activity is normal. Speech: Patient's speech is fluent and nonpressured. Speech is low in volume, spontaneous, somewhat difficult to understand. Mood/Affect: Mood is nervous, affect is congruent and anxious. Suicidality/Homicidality: Patient denies any suicidal or homicidal ideation, intention, and/or plan. Perceptions: Patient denies any visual hallucinations but endorses auditory hallucinations. Though content/process: The patient appears to endorse some paranoid delusions but refuses to elaborate. Disorganized. Memory and concentration: AOX3, grossly intact for the purposes of this session Judgment and insight: poor Assessment Bipolar disorder, type I, manic episode Urinary tract infection Plan: -Patient continues to meet criteria for inpatient psychiatric admission for symptom stabilization and safety. The patient deferred mental health court. -Medications: Increase Abilify to 25 mg by mouth daily for mood stabilization/psychosis Increase lamotrigine to 50 mg by mouth daily and 100 mg daily at bedtime for mood stabilization Continue melatonin 5 mg by mouth at bedtime for insomnia Continue Omnicef for UTI -When necessary Ativan and Haldol for agitation/aggression. -SW on board for discharge planning. Encouraged the patient to participate in milieu.
[2021-02-06] MEDS ORDERED: lamoTRIgine 100 MG TAB PO SCH (21:00)
[2021-02-06] MEDS: NYSTATIN 100,000 UNIT/GM OINT 30 GM TUBE TOPICAL SCH (21:29)
[2021-02-06] MEDS: MELATONIN 5 MG TABLET PO SCH (21:29)
[2021-02-07] MEDS: LEVOTHYROXINE 88 MCG TAB PO SCH (05:30)
[2021-02-07] MEDS: CEFDINIR 300 MG CAP PO SCH ×2 (08:41→20:51)
[2021-02-07] MEDS: NYSTATIN 100,000 UNIT/GM OINT 30 GM TUBE TOPICAL SCH ×3 (08:41→22:34)
[2021-02-07] MEDS: lamoTRIgine 25 MG TAB PO SCH ×2 (08:41→20:51)
[2021-02-07] MEDS ORDERED: ARIPiprazole 10 MG TAB PO SCH (09:00)
[2021-02-07] MEDS ORDERED: ARIPiprazole IM 400 MG VIAL (NO COST) PHARMACY STOCK IM ONE (10:49)
--- NOTE | 2021-02-07 11:31 | P.PN ---
Progress Note - Text Progress Note Date: 02/07/21 Interval History: Patient was seen wandering the hallways and was directable and agreeable to speak with typewriter operator automatic in the office. Patient was noted to suffer only 4 hours. She was noted to be awake throughout the night ambulating in the halls in her room. The patient has also been noted to be speaking to herself while in the hallways. At times, she appears to be disorganized and I have difficulty interpreting what she is saying. She is currently denying any suicidal or homicidal ideation, intention, and/or plan. She does admit to auditory hallucinations. Refuses to elaborate. She denies any visual hallucinations. She is not reporting any paranoia or other delusions at this time. The patient has been in adherent with her medications and acknowledges that she is due for her Abilify maintena. She is otherwise not reporting any issues with appetite. She denies any chest pain, shortness of breath, akathisia, or other side effects of her medications. Mental Status Exam: General Appearance: Patient appears to be stated age is alert, directable, and cooperative. Moderately obese elderly woman wearing a hospital gown. Behavior: Patient is calmly seated without any agitated behavior. Eye contact is appropriate during the interview. Psychomotor activity is normal. Speech: Patient's speech is fluent and nonpressured. Speech is low in volume, spontaneous, somewhat difficult to understand. Mood/Affect: Mood is nervous, affect is congruent and anxious. Suicidality/Homicidality: Patient denies any suicidal or homicidal ideation, intention, and/or plan. Perceptions: Patient denies any visual hallucinations but endorses auditory hallucinations. Though content/process: The patient appears to endorse some paranoid delusions but refuses to elaborate. Disorganized. Memory and concentration: AOX3, grossly intact for the purposes of this session Judgment and insight: poor Assessment Bipolar disorder, type I, manic episode Urinary tract infection Plan: -Patient continues to meet criteria for inpatient psychiatric admission for symptom stabilization and safety. The patient deferred mental health court. -Medications: Decrease Abilify to 20 mg by mouth daily for mood stabilization/psychosis. We will administer Abilify maintain a 400 mg IM today. Increase lamotrigine to 50 mg by mouth daily and 125 mg daily at bedtime for mood stabilization Continue melatonin 5 mg by mouth at bedtime for insomnia Continue Omnicef for UTI -When necessary Ativan and Haldol for agitation/aggression. -SW on board for discharge planning. Encouraged the patient to participate in milieu.
[2021-02-07] MEDS: MULTIVITAMINS, THERA 1 EACH TAB PO SCH (16:16)
[2021-02-07] MEDS: MELATONIN 5 MG TABLET PO SCH (20:52)
[2021-02-07] MEDS: traZODone HCL 50 MG TAB PO SCH (20:52)
[2021-02-08] MEDS: LEVOTHYROXINE 88 MCG TAB PO SCH (06:16)
[2021-02-08] MEDS: NYSTATIN 100,000 UNIT/GM OINT 30 GM TUBE TOPICAL SCH ×4 (08:30→22:35)
[2021-02-08] MEDS: CEFDINIR 300 MG CAP PO SCH ×2 (08:31→20:30)
[2021-02-08] MEDS: MULTIVITAMINS, THERA 1 EACH TAB PO SCH (08:31)
[2021-02-08] MEDS: lamoTRIgine 25 MG TAB PO SCH ×2 (08:31→20:31)
[2021-02-08] MEDS: ARIPiprazole 10 MG TAB PO SCH (08:31)
--- NOTE | 2021-02-08 11:37 | P.PN ---
Progress Note - Text Progress Note Date: 02/08/21 Interval History: Patient was seen in her room and was directable and agreeable to speak with policy writer sales. Patient is very preoccupied and talking to herself. She stated she feels ashamed. She has loose associations. She speaks in low monotonous voice. Her speech is a hardly audible. She is mumbling. She is wandering around the hallways mumbling and talking to herself. She is responding to unknown stimuli. Her speech is very nonsensical. She makes no eye contact. At this time patient denies any suicidal or homical ideations, intent or plan. Patient denies any auditory, visual hallucinations and denies any paranoia or delusions. Patient denies any side effects from the medications. Mental Status Exam: General Appearance: Patient is obese and is alert and un-cooperative. Behavior: Patient is calmly seated without any agitated behavior. Speech: Patient's speech is mumbling and harder to be understood. Mood/Affect: Mood is not improving affect is constricted. Suicidality/Homicidality: Patient denies having any suicidal or homicidal ideation intent or plan. Perceptions: Patient is responding to unknown stimuli. Though content/process: There is evidence of delusional thought content and thought process. Memory and concentration: Patient is not able to concentrate on task and her memory is not tested able. Judgment and insight: not Improving Assessment This patient continues to be grossly psychotic and out of touch with reality. Plan: -Patient continues to meet criteria for inpatient psychiatric admission for symptom stabilization and safety. -Medications: Continue medications as before. -When necessary Ativan and Haldol for agitation/aggression. -SW on board for discharge planning. Encouraged the patient to participate in milieu.
[2021-02-08] MEDS: MELATONIN 5 MG TABLET PO SCH (20:31)
[2021-02-08] MEDS: traZODone HCL 50 MG TAB PO SCH (20:31)
[2021-02-09] MEDS: LEVOTHYROXINE 88 MCG TAB PO SCH (06:40)
[2021-02-09] MEDS: ARIPiprazole 10 MG TAB PO SCH (08:07)
[2021-02-09] MEDS: lamoTRIgine 25 MG TAB PO SCH ×2 (08:07→22:17)
[2021-02-09] MEDS: NYSTATIN 100,000 UNIT/GM OINT 30 GM TUBE TOPICAL SCH ×3 (08:07→22:21)
[2021-02-09] MEDS: MULTIVITAMINS, THERA 1 EACH TAB PO SCH (08:07)
--- NOTE | 2021-02-09 12:42 | P.PN ---
Progress Note - Text Progress Note Date: 02/09/21 Interval History: Patient was seen in her home and was directable and agreeable to speak with underwriter. This 70-year-old female patient is grossly psychotic. She is mumbling and wanders around in the hallways talking to herself. She isolates herself from other people and has no interaction with her peers. Patient has been compliant with meds. Mental Status Exam: General Appearance: Patient appears to be stated age . Behavior: Patient is calmly seated without any agitated behavior. Speech: Patient's speech is non-fluent . Mood/Affect: Mood is improving mildly, affect is constricted. Suicidality/Homicidality: Patient is a high risk for suicidal or homicidal beh avior at present Perceptions: Patient is responding to internal stimuli Though content/process: There is evidence of delusional thought content Memory and concentration: Poor Judgment and insight: Not Improving Assessment This patient continues to be grossly psychotic and out of touch with reality Plan: -Patient continues to meet criteria for inpatient psychiatric admission for symptom stabilization and safety. -Medications: Continue medication as before -When necessary Ativan and Haldol for agitation/aggression. -SW on board for discharge planning. Encouraged the patient to participate in milieu.
[2021-02-09] MEDS: MELATONIN 5 MG TABLET PO SCH (22:17)
[2021-02-09] MEDS: traZODone HCL 50 MG TAB PO SCH (22:17)
[2021-02-10] MEDS: LEVOTHYROXINE 88 MCG TAB PO SCH (06:17)
[2021-02-10] MEDS: lamoTRIgine 25 MG TAB PO SCH ×2 (09:09→23:37)
[2021-02-10] MEDS: NYSTATIN 100,000 UNIT/GM OINT 30 GM TUBE TOPICAL SCH ×3 (09:09→23:37)
[2021-02-10] MEDS: ARIPiprazole 10 MG TAB PO SCH (09:09)
[2021-02-10] MEDS: MULTIVITAMINS, THERA 1 EACH TAB PO SCH ×2 (09:09→10:19)
[2021-02-10 09:23] VITALS: RESP 20
--- NOTE | 2021-02-10 10:31 | P.PN ---
Progress Note - Text Progress Note Date: 02/10/21 Interval History: Patient was seen sitting upright in her bed and was agreeable to speak with rfp writer in her room. At this time, the patient is not reporting any suicidal or homicidal ideation, intention, and/or plan. She denies any paranoia or other delusions. The patient expresses that she is having difficulty ambulating with the assistance walker and holding a cup at the same time. The patient is also able to discuss at length that she has been prescribed Abilify maintena on has been taking the medication for some time. She expresses how the previous psychiatrist stated that there were even looking at tapering the medication to 300 mg IM per month. The patient does state that she talks to herself in her room but vehemently denies that she has any auditory or visual hallucinations. She is currently alert and oriented in all spheres. There'll be at times during the interview where she begins to talk nonsensically but is redirectable and is able to respond appropriate questions. Mental Status Exam: General Appearance: Patient appears to be stated age is alert, directable, and cooperative. Moderately obese elderly woman wearing a hospital gown. Behavior: Patient is calmly seated without any agitated behavior. Eye contact is appropriate during the interview. Psychomotor activity is normal. Speech: Patient's speech is fluent and nonpressured. Speech is low in volume, spontaneous, and at times difficult to understand. Mood/Affect: Mood is "doing okay." Affect is blunted. Suicidality/Homicidality: Patient denies any suicidal or homicidal ideation, intention, and/or plan. Perceptions: Patient denies any visual hallucinations but endorses auditory hallucinations. Though content/process: The patient is not endorsing any delusional thought content. Thought process appears to be a little disorganized but linear and logical when she needs to be. Memory and concentration: AOX3, grossly intact for the purposes of this session Judgment and insight: poor Assessment Bipolar disorder, type I, manic episode Urinary tract infection Plan: -Patient continues to meet criteria for inpatient psychiatric admission for symptom stabilization and safety. The patient deferred mental health court. -Medications: Continue Abilify 20 mg by mouth daily for mood stabilization/psychosis. Abilify maintain a was administered on 02/07/21. Continue lamotrigine 50 mg by mouth daily and 125 mg daily at bedtime for mood stabilization Continue melatonin 5 mg by mouth at bedtime for insomnia Patient completed a course of Omnicef for urinary tract infection. -When necessary Ativan and Haldol for agitation/aggression. -SW on board for discharge planning. Encouraged the patient to participate in milieu.
[2021-02-10] MEDS: traZODone HCL 50 MG TAB PO SCH (23:37)
[2021-02-10] MEDS: MELATONIN 5 MG TABLET PO SCH (23:37)
[2021-02-11] MEDS: LEVOTHYROXINE 88 MCG TAB PO SCH ×2 (06:56→09:19)
[2021-02-11 09:04] LABS: Basophils # (A) 0.1 k/uL (0-0.2); Basophils % (A) 1 %; Eosinophils # (A) 0.1 k/uL (0-0.7); Eosinophils % (A) 1 %; HCT 40.3 % (34.0-46.0); HGB 13.5 gm/dL (11.4-16.0); Lymphocytes # (A) 0.7 k/uL (1.0-4.8); Lymphocytes % (A) 11 %; MCH 29.3 pg (25.0-35.0); MCHC 33.4 g/dL (31.0-37.0); MCV 87.6 fL (80.0-100.0); Mean Platelet Volume 6.3; Monocytes # (A) 0.4 k/uL (0-1.0); Monocytes % (A) 6 %; Neutrophils # (A) 5.2 k/uL (1.3-7.7); Neutrophils % (A) 80 %; Platelet Count 285 k/uL (150-450); RDW 13.6 % (11.5-15.5); WBC 6.5 k/uL (3.8-10.6)
[2021-02-11 09:20] LABS: Calcium 10.1 mg/dL (8.4-10.2); Potassium 3.8 mmol/L (3.5-5.1); Total Bilirubin 0.7 mg/dL (0.2-1.3); Total Protein 6.7 g/dL (6.3-8.2)
[2021-02-11] MEDS: LORazepam 1 MG TAB PO PRN (09:29)
[2021-02-11] MEDS: NYSTATIN 100,000 UNIT/GM OINT 30 GM TUBE TOPICAL SCH ×2 (09:29→15:46)
[2021-02-11] MEDS: MULTIVITAMINS, THERA 1 EACH TAB PO SCH (09:29)
[2021-02-11] MEDS: lamoTRIgine 25 MG TAB PO SCH (09:29)
[2021-02-11] MEDS: ARIPiprazole 10 MG TAB PO SCH ×2 (09:29→11:59)
--- NOTE | 2021-02-11 11:30 | P.DS ---
Providers Date of admission: 02/01/21 00:04 Expected date of discharge: 02/11/21 Attending physician: Geoff Pierre MD Consults: 02/01/21 00:23 Consult Physician Routine Consulting Provider: Addie Miguel Consult Reason/Comments: H&P for mental health admission Do you want consulting provider notified?: Yes, Notify in am Primary care physician: Yeison He - Discharge Diagnosis(es) (1) Urinary tract infection Current Visit: Yes Status: Acute Priority: High (2) Severe manic bipolar 1 disorder with psychotic behavior Current Visit: Yes Status: Resolved Priority: Medium Hospital Course: Admission HPI: Initial psychiatric evaluation was completed by Dr. Ceja on 02/01/2021 who wrote: "Radha is a 70-year-old female who has a history of a bipolar illness. She is well known to this unit from her prior psychiatric hospitalizations. I attempted to interview the patient and spoke with her on the telephone. Her completed a Petition that was tersely worded. The petition read "went to bed Wednesday night about 10 PM. Radha talked a lot. Got up about 5 AM." Her provided minimal additional information when we spoke on the telephone. He perseverated about her history of a bipolar illness and complained that become "bipolar again". She was not sleeping, "talking constantly" and her speech was incoherent. He denied that she has been assaultive or aggressive. He acknowledged that she is maintaining her personal hygiene. He noticed that she had become more and more depressed over the last few months and recently has not been sleeping at night. He complained that she talks constantly and her speech has become incomprehensible. He stated he brought her to Hospital because he could no longer "manage her at home." When I pressed him about the specifics of her behavior he talked about an incident where he took the car keys from her because she did not believe she was competent to be able to drive safely. She proceeded to get dressed to leave the house. She went into the garage, sat in the car and kept honking horn to get his attention. She was unable to provide a coherent history. Her speech pressured and incoherent. This is at least her sixth admission to the psychiatric unit. Her last discharge was in August 2019 and her discharge diagnoses was bipolar disorder Court episode manic with psychotic features. According to her , she has met with a private psychiatrist, Dr. Jazmin Sweeney at [facility] in [facility] for the last [address] Sweeney started Radha on Abilify last year and has been administering Abilify Maintena injections." Hospital course: Upon admission to the unit patient was initially presented with significant manic symptoms including pressured speech, perseveration, and gross disorganization. Patient was however directable and agreeable to commence treatment. The patient was petitioned and certified. The patient was continued on her regimen of Abilify and Lamictal. Patient was also seen by the medical team for history and physical examination. Over the course of the h ospitalization, the patient's Abilify was continued on her Lamictal was gradually titrated in order to address her continued symptoms of garrett. As patient continued to display significant signs and symptoms of confusion, and urinary analysis was completed and determined that the patient did indeed have a urinary tract infection. Patient was started on Omnicef. The patient was due for Abilify maintena her on 02/07/21 and was given 400 mg IM due to her uncontrolled manic episodes despite discussion about decreasing the dose for Abilify maintena her in the outpatient setting to 300 mg IM. The patient began to display significant improvement in regards her target symptoms of garrett. There were occasional episodes with the patient displayed difficulty sleeping and at times she was apparently disorganized. Despite this, the patient did remain alert and oriented in all spheres and has been calm and cooperative with staff in the milieu. The patient does have significant medical problems that need to be followed up in the outpatient setting and she was counseled on following up with her outpatient providers for mental health as well as for her general medical problems. On day of discharge, the patient is not reporting any suicidal or homicidal ideation, intention, and/or plan. Patient endorses wanting to live for herself and to see her . The patient denied any active firearms or other weapons. The patient denies any paranoia or other delusions. She reports no auditory or visual hallucinations. The patient does not have a significant history substance abuse however was counseled on abstaining from all substances including alcohol and marijuana. The patient was counseled on her medications and need for regular compliance. Prior to discharge, family meeting will be arranged by medical social consultant to answer questions and ensure safety. Mental status exam: General Appearance: Patient appears to be stated age is alert, pleasant, and cooperative. Patient is in no acute distress and has fair hygiene and grooming. Moderately obese. Behavior: Patient is calmly seated without any agitated behavior. Psychomotor activity appears normal. Speech: Patient's speech is fluent and nonpressured. Spontaneous, monotone. Mood/Affect: Patient reports their mood is "ready to go home", affect is congruent and blunted at baseline. Suicidality/Homicidality: Patient denies having any suicidal or homicidal ideation intent or plan. Perceptions: Patient denies any auditory or visual hallucinations. Though content/process: There is no evidence of any delusional thought content and thought process is linear and goal-directed. The patient is future oriented. Memory and concentration: AOX3, grossly intact for the purposes of this session. Can spell "WORLD" backwards correctly. Judgment and insight: Improved with guarded prognosis Impression: Bipolar disorder, type I, manic episode Urinary tract infection, resolved Plan: -Continue with discharge today as patient has improved and stabilized psychiatrically and is not currently an imminent threat to herself and/or others. Patient will remain at chronically elevated risk for harm to self and/or others due to her age and her treatment resistant bipolar disorder -Continue medications: Abilify 20 mg by mouth daily for 15 days Trazodone 50 mg daily at bedtime Lamictal 50 mood as by mouth every morning, 125 mg by mouth daily at bedtime for mood stabilization Melatonin 10 mg by mouth at bedtime Abilify maintena 400 mg IM - Last dose given on 02/07/2021. Next dose due on 03/07/2021. -Patient was counseled on the need for medication compliance and appropriate follow-up at mental health and also primary care for medical issues. Patient verbalized understanding and agreed. -Social work to arrange for and conduct family meeting to ensure safety upon discharge and answer any questions/concerns. Social work also to arrange for patients follow up appointments with [facility] for psychiatric care along with follow up with primary care provider. -Patient counseled on abstaining from recreational drugs and marijuana and alcohol. Was informed/educated on the adverse effects on their physical and mental health. Patient verbally agreed and understood. -Patient was instructed to return to the hospital or seek immediate medical care if their psychiatric or medical symptoms do worsen or reoccur. -Psychoeducation and supportive therapy provided to patient. Risks and benefits of pharmacological treatment versus the risks and benefits of nontreatment weight and discussed. Informed consent discussion held. Common side effects of psychotropics discussed such as, but not limited to headache, GI disturbance, sexual dysfunction, movement disorders, sedation, and orthostatic hypotension. Life threatening and blackbox warnings of prescribed medications also discussed. Potential risks of operating a vehicle or heavy machinery discussed with patient at length. Advised on importance of compliance and a reliable and responsible manner. Patient advised to review FDA consumer labeling of all medications prior to taking. Patient verbalized understanding of potential risks, and agrees with current treatment plan. Patient advised to medically contact physician/emergency personnel if any acute changes in condition occur. Vital Signs Temp 96.9 F L 02/10/21 09:21 Pulse 69 02/10/21 09:21 Resp 20 02/10/21 09:21 BP 119/62 02/10/21 09:21 Pulse Ox 91 L 02/01/21 00:42 Laboratory Results WBC 6.5 k/uL (3.8-10.6) 02/11/21 08:25 RBC 4.60 m/uL (3.80-5.40) 02/11/21 08:25 Hgb 13.5 gm/dL (11.4-16.0) 02/11/21 08:25 Hct 40.3 % (34.0-46.0) 02/11/21 08:25 MCV 87.6 fL (80.0-100.0) 02/11/21 08:25 MCH 29.3 pg (25.0-35.0) 02/11/21 08:25 MCHC 33.4 g/dL (31.0-37.0) 02/11/21 08:25 RDW 13.6 % (11.5-15.5) 02/11/21 08:25 Plt Count 285 k/uL (150-450) 02/11/21 08:25 MPV 6.3 02/11/21 08:25 Neutrophils % 80 % 02/11/21 08:25 Lymphocytes % 11 % 02/11/21 08:25 Monocytes % 6 % 02/11/21 08:25 Eosinophils % 1 % 02/11/21 08:25 Basophils % 1 % 02/11/21 08:25 Neutrophils # 5.2 k/uL (1.3-7.7) 02/11/21 08:25 Lymphocytes # 0.7 k/uL (1.0-4.8) L 02/11/21 08:25 Monocytes # 0.4 k/uL (0-1.0) 02/11/21 08:25 Eosinophils # 0.1 k/uL (0-0.7) 02/11/21 08:25 Basophils # 0.1 k/uL (0-0.2) 02/11/21 08:25 Sodium 139 mmol/L (137-145) 02/11/21 08:25 Potassium 3.8 mmol/L (3.5-5.1) 02/11/21 08:25 Chloride 105 mmol/L (98-107) 02/11/21 08:25 Carbon Dioxide 21 mmol/L (22-30) L 02/11/21 08:25 Anion Gap 13 mmol/L 02/11/21 08:25 BUN 12 mg/dL (7-17) 02/11/21 08:25 Creatinine 0.92 mg/dL (0.52-1.04) 02/11/21 08:25 Est GFR (CKD-EPI)AfAm 72 (>60 ml/min/1.73 sqM) 02/11/21 08:25 Est GFR (CKD-EPI)NonAf 63 (>60 ml/min/1.73 sqM) 02/11/21 08:25 Glucose 102 mg/dL (74-99) H 02/11/21 08:[address] Glu mg/dL 105 01/30/21 11:42 Hemoglobin A1c 5.3 % (4.0-6.0) 01/30/21 11:42 Calcium 10.1 mg/dL (8.4-10.2) 02/11/21 08:25 Total Bilirubin 0.7 mg/dL (0.2-1.3) 02/11/21 08:25 AST 65 U/L (14-36) H 02/11/21 08:25 ALT 41 U/L (4-34) H 02/11/21 08:25 Alkaline Phosphatase 76 U/L (38-126) 02/11/21 08:25 Total Protein 6.7 g/dL (6.3-8.2) 02/11/21 08:25 Albumin 4.0 g/dL (3.5-5.0) 02/11/21 08:25 Triglycerides 122 mg/dL (<150) 01/30/21 11:42 Cholesterol 202 mg/dL (<200) H 01/30/21 11:42 LDL Cholesterol, Calc 96 mg/dL (0-99) 01/30/21 11:42 HDL Cholesterol 82 mg/dL (40-60) H 01/30/21 11:42 TSH 1.050 mIU/L (0.465-4.680) 01/30/21 11:42 Urine Color Yellow 02/04/21 09:49 Urine Appearance Clear (Clear) 02/04/21 09:49 Urine pH 5.5 (5.0-8.0) 02/04/21 09:49 Ur Specific Cosby 1.016 (1.001-1.035) 02/04/21 09:49 Urine Protein Negative (Negative) 02/04/21 09:49 Urine Glucose (UA) Negative (Negative) 02/04/21 09:49 Urine Ketones 1+ (Negative) H 02/04/21 09:49 Urine Blood Negative (Negative) 02/04/21 09:49 Urine Nitrite Negative (Negative) 02/04/21 09:49 Urine Bilirubin Negative (Negative) 02/04/21 09:49 Urine Urobilinogen <2.0 mg/dL (<2.0) 02/04/21 09:49 Ur Leukocyte Esterase Large (Negative) H 02/04/21 09:49 Urine RBC 1 /hpf (0-5) 02/04/21 09:49 Urine WBC 8 /hpf (0-5) H 02/04/21 09:49 Ur Squamous Epith Cells 1 /hpf (0-4) 02/04/21 09:49 Ur Transition Epith Cell <1 /hpf (0-1) 01/30/21 11:42 Urine Bacteria Rare /hpf (None) H 02/04/21 09:49 Hyaline Casts 1 /lpf (0-2) 02/04/21 09:49 Urine Mucus Few /hpf (None) H 02/04/21 09:49 Urine Opiates Screen Negative ng/mL (Negative) 02/04/21 09:49 Ur Oxycodone Screen Not Detected (NotDetected) 01/30/21 11:42 Urine Methadone Screen Negative ng/mL (Negative) 02/04/21 09:49 Ur Propoxyphene Screen Negative ng/mL (Negative) 02/04/21 09:49 Ur Barbiturates Screen Not Detected (NotDetected) 01/30/21 11:42 Urine Barbiturates Negative ng/mL (Negative) 02/04/21 09:49 U Tricyclic Antidepress Not Detected (NotDetected) 01/30/21 11:42 Ur Phencyclidine Scrn Negative ng/mL (Negative) 02/04/21 09:49 Ur Amphetamine Screen Negative ng/mL (Negative) 02/04/21 09:49 Ur Amphetamines Screen Not Detected (NotDetected) 01/30/21 11:42 U Methamphetamines Scrn Not Detected (NotDetected) 01/30/21 11:42 U Benzodiazepines Scrn Negative ng/mL (Negative) 02/04/21 09:49 Urine Cocaine Screen Negative ng/mL (Negative) 02/04/21 09:49 U Cannabinoids Screen Negative ng/mL (Negative) 02/04/21 09:49 U Marijuana (THC) Screen Not Detected (NotDetected) 01/30/21 11:42 Urine Alcohol Negative mg/dL (Negative) 02/04/21 09:49 Influenza Type A (PCR) Not Detected (Not Detectd) 01/31/21 00:49 Influenza Type B (PCR) Not Detected (Not Detectd) 01/31/21 00:49 RSV (PCR) Not Detected (Not Detectd) 01/31/21 00:49 SARS-CoV-2 (PCR) Not Detected (Not Detectd) 01/31/21 00:49 Allergies Allergy/AdvReac Type Severity Reaction Status Date / Time alendronate sodium Allergy Rash/Hives Verified 01/30/21 12:40 [From Fosamax] amoxicillin Allergy Rash/Hives Verified 01/30/21 12:40 guaifenesin [From Robitussin] Allergy Rash/Hives Verified 01/30/21 12:40 ibandronate sodium Allergy Rash/Hives Verified 01/30/21 12:40 [From Boniva] Patient Condition at Discharge: Stable Plan - Discharge Summary Discharge Rx Participant: No New Discharge Prescriptions: New ARIPiprazole [Abilify] 20 mg PO DAILY 15 Days tab traZODone HCL [Desyrel] 50 mg PO HS 30 Days tab lamoTRIgine [LaMICtal] 50 mg PO DAILY 30 Days tab lamoTRIgine [LaMICtal] 125 mg PO HS 30 Days tab Melatonin 10 mg PO HS 30 Days tablet Nystatin 100,000 Unit/gm Oint [Mycostatin Oint] 1 applic TOPICAL TID 30 Days applic Levothyroxine Sodium [Synthroid] 88 mcg PO DAILY@0630 30 Days tab Multivitamins, Thera [Multivitamin (formulary)] 1 each PO DAILY 30 Days tab Continue ARIPiprazole IM patients own [[place] cruz Gu[place]at[place] Patients Own] 400 mg IM Q30D #1 each Discontinued Levothyroxine Sodium [Synthroid] 88 mcg PO QAM lamoTRIgine [LaMICtal] 25 mg PO BID ARIPiprazole [Abilify] 20 mg PO DAILY Discharge Medication List ARIPiprazole IM patients own [Willalifmaxwell Guerratena Patients Own] 400 mg IM Q30D #1 each 02/11/21 [Rx] ARIPiprazole [Abilify] 20 mg PO DAILY 15 Days tab 02/11/21 [Rx] Levothyroxine Sodium [Synthroid] 88 mcg PO DAILY@0630 30 Days tab 02/11/21 [Rx] Melatonin 10 mg PO HS 30 Days tablet 02/11/21 [Rx] Multivitamins, Thera [Multivitamin (formulary)] 1 each PO DAILY 30 Days tab 02/11/21 [Rx] Nystatin 100,000 Unit/gm Oint [Mycostatin Oint] 1 applic TOPICAL TID 30 Days applic 02/11/21 [Rx] lamoTRIgine [LaMICtal] 50 mg PO DAILY 30 Days tab 02/11/21 [Rx] lamoTRIgine [LaMICtal] 125 mg PO HS 30 Days tab 02/11/21 [Rx] traZODone HCL [Desyrel] 50 mg PO HS 30 Days tab 02/11/21 [Rx] Follow up Appointment(s)/Referral(s): Yeison He DO [Primary Care Provider] - 1-2 days Activity/Diet/Wound Care/Special Instructions: Activity and diet as tolerated. Avoid the use of street drugs and alcohol. Take all medications as prescribed. When you are in need of refills on your medications please contact your medical provider and/or outpatient psychiatrist to have this done. Please go to scheduled outpatient appointment for aftercare treatment. If symptoms return or become worse, call the crisis line at and/or go to the nearest emergency room for evaluation. Discharge Disposition: HOME SELF-CARE
[2021-02-11 12:55] VITALS: BP 130/60; PULSE 97; TEMP 98
== END 2021-02-11 15:55 | disposition home health service (06) | DRG 885 ==
LOC: EC 10:56 → 3MHU 02-01 00:04
PROVIDERS: ADMIT Psychiatry & Neurology Psychiatry; ATTEND Psychiatry & Neurology Psychiatry
DX: F31.2 Bipolar disorder, current episode manic severe with psychotic features (principal); N39.0 Urinary tract infection, site not specified; Z20.822 Contact with and (suspected) exposure to COVID-19; E03.9 Hypothyroidism, unspecified; E66.9 Obesity, unspecified; Z68.36 Body mass index [BMI] 36.0-36.9, adult; Z79.890 Hormone replacement therapy; Z79.899 Other long term (current) drug therapy; Z87.891 Personal history of nicotine dependence; Z98.84 Bariatric surgery status; Z90.89 Acquired absence of other organs; K59.00 Constipation, unspecified; Z90.49 Acquired absence of other specified parts of digestive tract; Z82.49 Family history of ischemic heart disease and other diseases of the circulatory system; Z88.0 Allergy status to penicillin
CPT/HCPCS: 36415; 80048; 80053; 80061; 80306; 81001; 82075; 83036; 84443; 85025; 87086; 87636; 99285

== ENCOUNTER 2021-02-12 14:59 | Emergency (ER) | payer MEDICARE ==
[2021-02-12 15:06] VITALS: BP 132/57; PULSE 69; RESP 18; TEMP 98.1
--- NOTE | 2021-02-12 15:37 | ED ---
General Adult HPI - General Source: EMS, RN notes reviewed, old records reviewed Mode of arrival: EMS Limitations: altered mental status <Breezy Walsh - Last Filed: 02/12/21 22:22> <Ilya Cardona - Last Filed: 02/12/21 23:53> - General Chief complaint: Psychiatric Symptoms Stated complaint: mental health Time Seen by Provider: 02/12/21 15:26 - History of Present Illness Initial comments: 70-year-old female presenting for evaluation of increased agitation, delusions, hallucination. She had recent admission to this facility for psychiatric evaluation and treatment. Patient is somewhat uncooperative, refusing to be seated in her bed for evaluation. Refusing to be put in a gown. Her did bring her to the emergency department but has not currently petitioned the patient. Patient is unable to give a clear history of why she is here. (Breezy Walsh) - Related Data Home Medications Medication Instructions Recorded Confirmed Multivitamins, Thera [Multivitamin 1 tab PO DAILY 02/12/21 02/12/21 (formulary)] Previous Rx's Medication Instructions Recorded ARIPiprazole IM patients own 400 mg IM Q30D #1 each 02/11/21 [Abilify Maintena Patients Own] ARIPiprazole [Abilify] 20 mg PO DAILY 15 Days tab 02/11/21 Levothyroxine Sodium [Synthroid] 88 mcg PO DAILY@0630 30 Days tab 02/11/21 Melatonin 10 mg PO HS 30 Days tablet 02/11/21 Nystatin 100,000 Unit/gm Oint 1 applic TOPICAL TID 30 Days 02/11/21 [Mycostatin Oint] applic lamoTRIgine [LaMICtal] 50 mg PO DAILY 30 Days tab 02/11/21 lamoTRIgine [LaMICtal] 125 mg PO HS 30 Days tab 02/11/21 traZODone HCL [Desyrel] 50 mg PO HS 30 Days tab 02/11/21 Allergies Allergy/AdvReac Type Severity Reaction Status Date / Time alendronate sodium Allergy Rash/Hives Verified 02/12/21 15:46 [From Fosamax] amoxicillin Allergy Rash/Hives Verified 02/12/21 15:46 guaifenesin [From Robitussin] Allergy Rash/Hives Verified 02/12/21 15:46 ibandronate sodium Allergy Rash/Hives Verified 02/12/21 15:46 [From Boniva] Review of Systems ROS Other: All systems not noted in ROS Statement are negative. <Breezy Walhs - Last Filed: 02/12/21 22:22> ROS Other: All systems not noted in ROS Statement are negative. <DulceIlya Jose Alfredo - Last Filed: 02/12/21 23:53> ROS Statement: Those systems with pertinent positive or pertinent negative responses have been documented in the HPI. Past Medical History Past Medical History: Thyroid Disorder, Vascular Disorder Additional Past Medical History / Comment(s): Other HX: R lung nodules-pt states noncancerous , slight kidney problems-lab tests a little abnormal pt states due to previously having been on lithium, previously charted stable descending aortic aneurysm- pt denies this, cholelithiasis, hypothyroidism, varicosities R leg, constipation. past BOWEL OBSTUCTION, wears a bite guard at night History of Any Multi-Drug Resistant Organisms: None Reported Past Surgical History: Adenoidectomy, Appendectomy, Bariatric Surgery, Ear Surgery, Tonsillectomy Additional Past Surgical History / Comment(s): Lap band 2004 with a port replacement 2011 ,then in 2016- lap band port/lap band removed , L ear cyst removal, colonoscopy-normal,EXP LAP REDUCTION OF VENTRAL HERNIA,DECOMPRESSION OF BOWEL,DIVISION OF GASTRIC BAND CATHETER FREEING OF BOWEL THAT WAS ST RANGULATED. Past Anesthesia/Blood Transfusion Reactions: No Reported Reaction Additional Past Anesthesia/Blood Transfusion Reaction / Comment(s): Pt has never recieved blood. Past Psychological History: Bipolar Smoking Status: Former smoker - Past Family History Father Additional Family Medical History / Comment(s): Father of ruptured aortic aneurysm at age 76yrs. Mother Additional Family Medical History / Comment(s): Mother had an abdominal aneurysm. She in her sleep at age 78yrs. <Breezy Walsh - Last Filed: 02/12/21 22:22> General Exam Limitations: altered mental status General appearance: alert, in no apparent distress Head exam: Present: atraumatic, normocephalic Eye exam: Present: normal appearance, PERRL ENT exam: Present: normal exam Neck exam: Present: normal inspection. Absent: tenderness, meningismus Respiratory exam: Present: normal lung sounds bilaterally. Absent: respiratory distress Cardiovascular Exam: Present: regular rate, normal rhythm GI/Abdominal exam: Present: soft. Absent: distended, tenderness, guarding Extremities exam: Present: normal inspection, normal capillary refill. Absent: pedal edema Neurological exam: Present: alert. Absent: oriented X3 Psychiatric exam: Present: agitated Skin exam: Present: warm, dry, intact. Absent: cyanosis, diaphoretic <Breezy Walsh - Last Filed: 02/12/21 22:22> Course <Breezy Walsh - Last Filed: 02/12/21 22:22> Vital Signs 02/12/21 02/12/21 15:01 16:06 Temperature 98.1 F Pulse Rate 69 Respiratory 18 18 Rate Blood Pressure 132/57 O2 Sat by Pulse 99 Oximetry - Reevaluation(s) Reevaluation #1: 02/12/21 2300 Care signed out at shift change to Dr. Cardona awaiting EPS evaluation and treatment. (Breezy Walsh) Medical Decision Making - Lab Data Result diagrams: 02/12/21 16:24 02/12/21 16:24 <Breezy Walsh - Last Filed: 02/12/21 22:22> - Lab Data Result diagrams: 02/12/21 16:24 02/12/21 16:24 <Ilya Cardona - Last Filed: 02/12/21 23:53> - Medical Decision Making 70 female DF for evaluation patient Dese for Lynda psych evaluation. Patient is evaluated here in the emergency department, patient deemed stable for discharge is not homicidal or suicidal and can be discharged home (Ilya Cardona) - Lab Data Lab Results 02/12/21 02/12/21 02/12/21 Range/Units 16:24 16:24 16:24 WBC 8.0 (3.8-10.6) k/uL RBC 4.38 (3.80-5.40) m/uL Hgb 12.8 (11.4-16.0) gm/dL Hct 38.5 (34.0-46.0) % MCV 88.0 (80.0-100.0) fL MCH 29.2 (25.0-35.0) pg MCHC 33.2 (31.0-37.0) g/dL RDW 13.8 (11.5-15.5) % Plt Count 227 (150-450) k/uL MPV 6.3 Neutrophils % 72 % Lymphocytes % 17 % Monocytes % 6 % Eosinophils % 3 % Basophils % 1 % Neutrophils # 5.8 (1.3-7.7) k/uL Lymphocytes # 1.4 (1.0-4.8) k/uL Monocytes # 0.5 (0-1.0) k/uL Eosinophils # 0.3 (0-0.7) k/uL Basophils # 0.1 (0-0.2) k/uL Sodium 138 (137-145) mmol/L Potassium 4.2 (3.5-5.1) mmol/L Chloride 104 (98-107) mmol/L Carbon Dioxide 28 (22-30) mmol/L Anion Gap 6 mmol/L BUN 17 (7-17) mg/dL Creatinine 1.04 (0.52-1.04) mg/dL Est GFR (CKD-EPI)AfAm 62 (>60 ml/min/1.73 sqM) Est GFR (CKD-EPI)NonAf 54 (>60 ml/min/1.73 sqM) Glucose 77 (74-99) mg/dL Calcium 9.8 (8.4-10.2) mg/dL Total Bilirubin 0.4 (0.2-1.3) mg/dL AST 53 H (14-36) U/L ALT 37 H (4-34) U/L Alkaline Phosphatase 66 (38-126) U/L Total Protein 6.1 L (6.3-8.2) g/dL Albumin 3.8 (3.5-5.0) g/dL Urine Color Yellow Urine Appearance Clear (Clear) Urine pH 6.0 (5.0-8.0) Ur Specific [place] 1.015 (1.001-1.035) Urine Protein Trace H (Negative) Urine Glucose (UA) Negative (Negative) Urine Ketones Trace H (Negative) Urine Blood Negative (Negative) Urine Nitrite Negative (Negative) Urine Bilirubin Negative (Negative) Urine Urobilinogen <2.0 (<2.0) mg/dL Ur Leukocyte Esterase Small H (Negative) Urine WBC 4 (0-5) /hpf Ur Squamous Epith Cells <1 (0-4) /hpf Hyaline Casts 1 (0-2) /lpf Urine Mucus Few H (None) /hpf Urine Opiates Screen (NotDetected) Ur Oxycodone Screen (NotDetected) Urine Methadone Screen (NotDetected) Ur Propoxyphene Screen (NotDetected) Ur Barbiturates Screen (NotDetected) U Tricyclic Antidepress (NotDetected) Ur Phencyclidine Scrn (NotDetected) Ur Amphetamines Screen (NotDetected) U Methamphetamines Scrn (NotDetected) U Benzodiazepines Scrn (NotDetected) Urine Cocaine Screen (NotDetected) U Marijuana (THC) Screen (NotDetected) 02/12/21 Range/Units 16:24 WBC (3.8-10.6) k/uL RBC (3.80-5.40) m/uL Hgb (11.4-16.0) gm/dL Hct (34.0-46.0) % MCV (80.0-100.0) fL MCH (25.0-35.0) pg MCHC (31.0-37.0) g/dL RDW (11.5-15.5) % Plt Count (150-450) k/uL MPV Neutrophils % % Lymphocytes % % Monocytes % % Eosinophils % % Basophils % % Neutrophils # (1.3-7.7) k/uL Lymphocytes # (1.0-4.8) k/uL Monocytes # (0-1.0) k/uL Eosinophils # (0-0.7) k/uL Basophils # (0-0.2) k/uL Sodium (137-145) mmol/L Potassium (3.5-5.1) mmol/L Chloride (98-107) mmol/L Carbon Dioxide (22-30) mmol/L Anion Gap mmol/L BUN (7-17) mg/dL Creatinine (0.52-1.04) mg/dL Est GFR (CKD-EPI)AfAm (>60 ml/min/1.73 sqM) Est GFR (CKD-EPI)NonAf (>60 ml/min/1.73 sqM) Glucose (74-99) mg/dL Calcium (8.4-10.2) mg/dL Total Bilirubin (0.2-1.3) mg/dL AST (14-36) U/L ALT (4-34) U/L Alkaline Phosphatase (38-126) U/L Total Protein (6.3-8.2) g/dL Albumin (3.5-5.0) g/dL Urine Color Urine Appearance (Clear) Urine pH (5.0-8.0) Ur Specific [place] (1.001-1.035) Urine Protein (Negative) Urine Glucose (UA) (Negative) Urine Ketones (Negative) Urine Blood (Negative) Urine Nitrite (Negative) Urine Bilirubin (Negative) Urine Urobilinogen (<2.0) mg/dL Ur Leukocyte Esterase (Negative) Urine WBC (0-5) /hpf Ur Squamous Epith Cells (0-4) /hpf Hyaline Casts (0-2) /lpf Urine Mucus (None) /hpf Urine Opiates Screen Not Detected (NotDetected) Ur Oxycodone Screen Not Detected (NotDetected) Urine Methadone Screen Not Detected (NotDetected) Ur Propoxyphene Screen Not Detected (NotDetected) Ur Barbiturates Screen Not Detected (NotDetected) U Tricyclic Antidepress Not Detected (NotDetected) Ur Phencyclidine Scrn Not Detected (NotDetected) Ur Amphetamines Screen Not Detected (NotDetected) U Methamphetamines Scrn Not Detected (NotDetected) U Benzodiazepines Scrn Detected H (NotDetected) Urine Cocaine Screen Not Detected (NotDetected) U Marijuana (THC) Screen Not Detected (NotDetected) Disposition <Breezy Walsh N - Last Filed: 02/12/21 22:22> Is patient prescribed a controlled substance at d/c from ED?: No <Ilya Cardona - Last Filed: 02/12/21 23:53> Clinical Impression: Adjustment reaction of adult life, Bipolar disorder Disposition: HOME SELF-CARE Condition: Fair Instructions (If sedation given, give patient instructions): Mood Disorders (ED) Referrals: Yeison He DO [Primary Care Provider] - 1-2 days
[2021-02-12 16:30] LABS: Basophils # (A) 0.1 k/uL (0-0.2); Basophils % (A) 1 %; Eosinophils # (A) 0.3 k/uL (0-0.7); Eosinophils % (A) 3 %; HCT 38.5 % (34.0-46.0); HGB 12.8 gm/dL (11.4-16.0); Lymphocytes # (A) 1.4 k/uL (1.0-4.8); Lymphocytes % (A) 17 %; MCH 29.2 pg (25.0-35.0); MCHC 33.2 g/dL (31.0-37.0); Mean Platelet Volume 6.3; Monocytes # (A) 0.5 k/uL (0-1.0); Monocytes % (A) 6 %; Neutrophils # (A) 5.8 k/uL (1.3-7.7); Neutrophils % (A) 72 %; Platelet Count 227 k/uL (150-450); RBC 4.38 m/uL (3.80-5.40); RDW 13.8 % (11.5-15.5)
[2021-02-12 16:42] LABS: Albumin 3.8 g/dL (3.5-5.0); Calcium 9.8 mg/dL (8.4-10.2); Potassium 4.2 mmol/L (3.5-5.1); Total Bilirubin 0.4 mg/dL (0.2-1.3); Total Protein 6.1 g/dL (6.3-8.2)
--- NOTE | 2021-02-12 16:48 | CT ---
EXAMINATION TYPE: CT brain wo con EXAM: CT brain wo con CLINICAL HISTORY: Altered mental status. COMPARISON: 02/05/2019 TECHNIQUE: Contiguous axial noncontrast images of the brain were obtained. Coronal and sagittal refor mats were generated and reviewed. Automated dose control was used for this exam. FINDINGS: There is no evidence for intracranial hemorrhage, mass effect or midline shift. There is mild parench ymal atrophy. The white matter is grossly preserved. Ventricular size and configuration is within normal limits for degree of parenchymal volume. The paranasal sinuses are clear. The mastoid air cells are clear. No evidence for calvarial fracture. IMPRESSION: No acute intracranial abnormality.
[2021-02-12 19:04] LABS: Appearance,Urine Clear (Clear); Bilirubin,Urine Negative (Negative); Blood,Urine Negative (Negative); Color,Urine Yellow; Glucose,Urine (UA) Negative (Negative); Hyaline Casts,Urine 1 /lpf (0-2); Ketones,Urine Trace (Negative); Leukocyte Esterase,Urine Small (Negative); Mucus,Urine Few /hpf; Nitrite,Urine Negative (Negative); Protein,Urine Trace (Negative); Specific Gravity,Urine 1.015 (1.001-1.035); Squamous Epithelial Cell,Urine <1 /hpf (0-4); Urobilinogen,Urine <2.0 mg/dL (<2.0); WBC,Urine 4 /hpf (0-5)
[2021-02-12 19:11] LABS: Amphetamine Screen,Urine Not Detected (NotDetected); Barbiturate Screen,Urine Not Detected (NotDetected); Benzodiazepines Screen,Urine Detected (NotDetected); Cocaine Screen,Urine Not Detected (NotDetected); Methadone Screen, Urine Not Detected (NotDetected); Opiate Screen,Urine Not Detected (NotDetected); Oxycodone Screen, Urine Not Detected (NotDetected); Phencyclidine Screen,Urine Not Detected (NotDetected); Tricyclic Antidepressant,Urine Not Detected (NotDetected); Urn Cannabinoid Scrn Not Detected (NotDetected)
== END 2021-02-13 01:01 | disposition home or self-care (01) ==
LOC: EC 14:59
DX: F43.20 Adjustment disorder, unspecified (principal); F31.9 Bipolar disorder, unspecified; R44.3 Hallucinations, unspecified; E03.9 Hypothyroidism, unspecified; Z87.891 Personal history of nicotine dependence; Z79.890 Hormone replacement therapy
CPT/HCPCS: 36415; 70450; 80053; 80306; 81001; 85025; 99285

== ENCOUNTER → 2021-03-21 | Outpatient (CLI) | payer MEDICARE ==
--- NOTE | 2021-03-21 12:31 | BD ---
EXAMINATION TYPE: Axial Bone Density DATE OF EXAM: 03/21/2021 COMPARISON: 11/22/2014 CLINICAL HISTORY: Height: 63.2 IN Weight: 200 LBS FRAX RISK QUESTIONS: History of Fracture in Adulthood: LT WRIST AGE 63; LT FOOT AGE 63 RISK FACTORS HISTORY OF: History of Wrist Fracture: LT WRIST AGE 63; RT WRIST AGE 18 Active: MODERATE Postmenopausal woman: AGE 55 MEDICATIONS: Thyroid Medications: YES Which medication: Synthroid How Lon+ YEARS Additional Medications: CALCIUM, VIT D, SYNTHROID, BIPOLAR MEDS, EXAM MEASUREMENTS: Bone mineral densitometry was performed using the [employer] System. Bone mineral density as measured about the Lumbar spine is: ----- L1-L4(G/cm2): 1.071 T Score Values are as follows: ----- L2: -0.8 ----- L3: -0.4 ----- L4: 0.6 ----- L1-L4: -0.9 Bone mineral density has: Increased 4.4% since study of: 11/22/2014 Bone mineral density about the R hip (g/cm2): 0.737 Bone mineral density about the L hip (g/cm2): 0.724 T Score values are as follows: -----R Neck: -2.2 -----L Neck: -2.3 -----R Total: -1.8 -----L Total: -2.2 Bone mineral density has: Increased 2.7% since study of: 11/22/2014 IMPRESSION: Osteopenia. NOTE: T-SCORE=SD OF THE YOUNG ADULT MEAN.
== END | disposition home or self-care (01) ==
LOC: RADBDWWP 09:11
PROVIDERS: ATTEND Family Medicine
DX: Z13.820 Encounter for screening for osteoporosis (principal); M85.89 Other specified disorders of bone density and structure, multiple sites; Z78.0 Asymptomatic menopausal state
CPT/HCPCS: 77080

== ENCOUNTER → 2022-05-04 | Outpatient (CLI) | payer MEDICARE ==
--- NOTE | 2022-05-04 10:43 | XR ---
EXAMINATION TYPE: XR foot complete LT DATE OF EXAM: 05/04/2022 COMPARISON: NONE HISTORY: Pain TECHNIQUE: Three views are submitted. FINDINGS: There is displaced fracture the distal margin proximal phalanx fifth digit with significant displacem ent. Arthropathy of the DIP joint of the fifth digit and there is marked tarsometatarsal joint arthro madeline with associated osteoarthritis or gout. Diffuse osteopenia. IMPRESSION: 1. Displaced fracture proximal phalanx fifth digit.
== END | disposition home or self-care (01) ==
LOC: RADXRYALE 10:17
PROVIDERS: ATTEND Physician Assistant Medical
DX: S92.512A Displaced fracture of proximal phalanx of left lesser toe(s), initial encounter for closed fracture (principal)

== ENCOUNTER → 2022-06-02 | Outpatient (CLI) | payer MEDICARE ==
--- NOTE | 2022-06-02 11:04 | XR ---
Left toes HISTORY: [id number] PAIN LT FOOT/TOE 2 views the left toes, comparison to prior exam 05/18/2022 Findings similar. Fracture of the distal aspect of the proximal to the fifth digit is again noted, th ere may be some periosteal reaction, there is persistent lucency, soft tissue swelling. Digits are fl exed. Bone mineralization is reduced. Marked arthropathy at the tarsometatarsal joints again noted di gits 1 through 4. IMPRESSION: Suspect healing fracture fifth digit.
== END | disposition home or self-care (01) ==
LOC: RADXRYALE 09:48
PROVIDERS: ATTEND Physician Assistant Medical
DX: M79.672 Pain in left foot (principal); M79.675 Pain in left toe(s)

== ENCOUNTER → 2022-06-23 | Outpatient (CLI) | payer MEDICARE ==
--- NOTE | 2022-06-23 16:06 | XR ---
Left toes HISTORY: Fracture fifth digit follow-up 2 views the left toes submitted and correlated prior exam 06/02/2022 There is periosteal new bone formation at the patient's fracture of the distal aspect of the proximal phalanx of the left foot. Bone mineralization is reduced. Arthropathy changes are present at the tar sometatarsal joint level, and within the digits as on prior. IMPRESSION: Healing fracture fifth digit.
== END | disposition home or self-care (01) ==
LOC: RADXRYALE 14:31
PROVIDERS: ATTEND Physician Assistant Medical
DX: S92.352D Displaced fracture of fifth metatarsal bone, left foot, subsequent encounter for fracture with routine healing (principal)